=== PATIENT | female | born 1945 | race Caucasian/White ===

== ENCOUNTER 2022-04-03 09:15 | Outpatient (RCR) | payer MEDICARE, SELFPAY | END 2022-07-10 08:37 | disposition home or self-care (01) | PROVIDERS: Visit Provider Physician Assistant | DX: M54.2 Cervicalgia (principal); Z51.89 Encounter for other specified aftercare | CPT/HCPCS: 97110; 97140 ==

== ENCOUNTER 2022-09-10 06:55 | Emergency (ER) | payer MEDICARE, SELFPAY ==
[2022-09-10] VITALS (23 sets, daily range): BP systolic 93–119; BP diastolic 66–76; PULSE 61–70; RESP 18; TEMP 36.6; O2SAT 95–99; BMI 31.7
--- NOTE | 2022-09-10 07:04 | ED_ITS ---
HPI - General Adult General Time Seen by Provider: 07:04 <Pito Wynne MD - Last Filed: 09/10/22 07:51> Date Seen: 09/10/22 <Pito Wynne MD - Last Filed: 09/10/22 07:51> Chief complaint: Chest Pain <Pito Wynne MD - Last Filed: 09/10/22 07:51> Stated complaint: Pressure in chest <Pito Wynne MD - Last Filed: 09/10/22 07:51> Time Seen by Provider: 09/10/22 07:03 <Pito Wynne MD - Last Filed: 09/10/22 07:51> Source: patient and RN notes reviewed <Pito Wynne MD - Last Filed: 09/10/22 07:51> Mode of arrival: ambulatory <Pito Wynne MD - Last Filed: 09/10/22 07:51> Limitations: no limitations <Pito Wynne MD - Last Filed: 09/10/22 07:51> History of Present Illness HPI narrative: 77-year-old female who presents today with throat pain and chest pressure. Patient is a difficult historian and when initially asked why she came to the emergency department, gives a long story about her trip to [place] yesterday. When redirected she notes that last night she had a sore throat which continues today, also pressure cross the front of her chest. She had some pain with swallowing. Denies fever, chills, runny nose, cough, nausea, vomiting, diarrhea, heartburn, leg swelling. Has not taken anything for her symptoms. <Pito Wynne MD - Last Filed: 09/10/22 07:51> Related Data Home medications: Home Medications Medication Instructions Recorded Confirmed acetaminophen 500 mg tablet 1,000 mg PO TID 09/10/22 09/10/22 albuterol sulfate 2.5 mg/3 mL 2.5 mg inhalation Q4H PRN 09/10/22 09/10/22 (0.083 %) solution for nebulization albuterol sulfate 90 mcg/actuation 2 puff inhalation TID PRN 09/10/22 09/10/22 aerosol inhaler buspirone 15 mg tablet 15 mg PO BID 09/10/22 09/10/22 cholestyramine (with sugar) 4 gram 1 ea PO BID 09/10/22 09/10/22 powder for susp in a packet (Questran) cyanocobalamin (vitamin B-12) 1,000 mcg IM Q30D 09/10/22 09/10/22 1,000 mcg/mL injection solution diphenoxylate-atropine 2.5 1 tab PO TID PRN 09/10/22 09/10/22 mg-0.025 mg tablet epinephrine 0.3 mg/0.3 mL 0.3 ml IM Q5-15M PRN 09/10/22 09/10/22 injection, auto-injector ferrous gluconate 324 mg (38 mg 324 mg PO DAILY 09/10/22 09/10/22 iron) tablet gabapentin 100 mg capsule 100 mg PO TID 09/10/22 09/10/22 hydrochlorothiazide 25 mg tablet 25 mg PO DAILY 09/10/22 09/10/22 levothyroxine 88 mcg tablet 88 mcg PO DAILY 09/10/22 09/10/22 potassium chloride 10 mEq 10 meq PO .DAILYWM 09/10/22 09/10/22 tablet,extended release pregabalin 150 mg capsule 150 mg PO BID 09/10/22 09/10/22 rosuvastatin 10 mg tablet 10 mg PO HS 09/10/22 09/10/22 trazodone 50 mg tablet 50 - 100 mg PO HS PRN 09/10/22 09/10/22 venlafaxine 100 mg tablet 100 mg PO BID 09/10/22 09/10/22 Previous Rx's Medication Instructions Recorded famotidine 40 mg tablet (Pepcid) 40 mg PO DAILY #10 tabs 09/10/22 nirmatrelvir 300 mg (150 mg See Rx Instructions PO .COMPLEX 09/10/22 x2)-ritonavir 100 mg tablet,dose #30 ea pack(EUA) (Paxlovid) sucralfate 1 gram tablet (Carafate) 1 g PO BID #20 tabs 09/10/22 <Pito Wynne MD - Last Filed: 09/10/22 07:51> Allergies/adverse reactions: Allergies Allergy/AdvReac Type Severity Reaction Status Date / Time azithromycin Allergy Severe Swelling Verified 09/10/22 07:11 of Lip/Tongue/Throat Cephalosporins Allergy Severe Swelling Verified 09/10/22 07:11 of Lip/Tongue/Throat diltiazem Allergy Severe Swelling Verified 09/10/22 07:11 of Lip/Tongue/Throat Penicillins Allergy Severe Swelling Verified 09/10/22 07:11 of Lip/Tongue/Throat prednisone Allergy Severe Swelling Verified 09/10/22 07:11 of Lip/Tongue/Throat Sulfa (Sulfonamide Allergy Severe Swelling Verified 09/10/22 07:11 Antibiotics) of Lip/Tongue/Throat nitrofurantoin Allergy Intermediate Rash Verified 09/10/22 07:11 [From Macrobid] STERLING Inhibitors Allergy Unknown Verified 09/10/22 07:11 <Pito Wynne MD - Last Filed: 09/10/22 07:51> [facility] Social History: Social History Smoking Status: Never smoker How often do you have a drink containing alcohol: never How often do you have six or more drinks on one occasion: Never AUDIT-C Alcohol total score: 0 Non-prescribed substance use: denies use <Pito Wynne MD - Last Filed: 09/10/22 07:51> Exam Narrative: Exam Narrative: General: Well-developed and well-nourished, no acute distress Head: Atraumatic and normocephalic Eyes: Pupils are equal reactive, extraocular motions intact, conjunctiva clear ENT: External nose and ears are normal, posterior pharynx with mild erythema, no exudate or swelling. No voice changes. Neck: No midline cervical tenderness, full spontaneous range of motion the neck, trachea midline, no adenopathy Heart: Regular rate and rhythm no murmurs or thrills Lungs: Clear to auscultation bilaterally without wheezes or crackles Abdomen: Soft, nontender, nondistended with active bowel sounds Musculoskeletal: No tenderness, deformity, or edema Neurologic: Awake, alert, and oriented x3, no gross focal neurologic deficits, cranial nerves intact as tested Psych: Mood and affect are appropriate Skin: No rashes <Pito Wynne MD - Last Filed: 09/10/22 07:51> Const: Vital Signs, click to edit/add: Vital Signs - 24 hr 09/10/22 07:05 09/10/22 07:09 09/10/22 07:10 Temperature 97.9 F Pulse Rate 68 67 Pulse Rate [Right Pulse Oximeter] 70 Respiratory Rate 18 Blood Pressure 111/74 Blood Pressure [Le ft Upper Arm] 111/74 Pulse Oximetry 99 95 99 Oxygen Delivery Me thod Room Air 09/10/22 07:20 09/10/22 07:30 09/10/22 07:32 Temperature Pulse Rate 64 63 65 Pulse Rate [Right Pulse Oximeter] Respiratory Rate Blood Pressure 119/71 110/74 Blood Pressure [Le ft Upper Arm] Pulse Oximetry 98 98 99 Oxygen Delivery Me thod 09/10/22 07:50 09/10/22 07:51 09/10/22 08:00 Temperature Pulse Rate 63 62 63 Pulse Rate [Right Pulse Oximeter] Respiratory Rate Blood Pressure Blood Pressure [Le ft Upper Arm] Pulse Oximetry 98 98 98 Oxygen Delivery Me thod 09/10/22 08:17 09/10/22 08:18 09/10/22 08:30 Temperature Pulse Rate 62 64 62 Pulse Rate [Right Pulse Oximeter] Respiratory Rate Blood Pressure 103/73 Blood Pressure [Le ft Upper Arm] Pulse Oximetry 97 97 98 Oxygen Delivery Me thod 09/10/22 08:32 09/10/22 08:47 09/10/22 09:00 Temperature Pulse Rate 64 63 62 Pulse Rate [Right Pulse Oximeter] Respiratory Rate Blood Pressure 105/76 94/66 Blood Pressure [Le ft Upper Arm] Pulse Oximetry 96 97 98 Oxygen Delivery Me thod 09/10/22 09:01 09/10/22 09:17 09/10/22 09:30 Temperature Pulse Rate 61 61 62 Pulse Rate [Right Pulse Oximeter] Respiratory Rate Blood Pressure 111/75 100/74 Blood Pressure [Le ft Upper Arm] Pulse Oximetry 98 98 95 Oxygen Delivery Me thod 09/10/22 09:31 09/10/22 09:32 09/10/22 09:46 Temperature Pulse Rate 62 61 65 Pulse Rate [Right Pulse Oximeter] Respiratory Rate Blood Pressure 93/72 109/69 Blood Pressure [Le ft Upper Arm] Pulse Oximetry 98 99 97 Oxygen Delivery Me thod 09/10/22 10:00 09/10/22 10:01 Temperature Pulse Rate 65 63 Pulse Rate [Right Pulse Oximeter] Respiratory Rate Blood Pressure 100/67 Blood Pressure [Le ft Upper Arm] Pulse Oximetry 97 96 Oxygen Delivery Me thod <Pito Wynne MD - Last Filed: 09/10/22 07:51> Vital Signs, click to edit/add: Vital Signs - 24 hr 09/10/22 07:05 09/10/22 07:09 09/10/22 07:10 Temperature 97.9 F Pulse Rate 68 67 Pulse Rate [Right Pulse Oximeter] 70 Respiratory Rate 18 Blood Pressure 111/74 Blood Pressure [Le ft Upper Arm] 111/74 Pulse Oximetry 99 95 99 Oxygen Delivery Me thod Room Air 09/10/22 07:20 09/10/22 07:30 09/10/22 07:32 Temperature Pulse Rate 64 63 65 Pulse Rate [Right Pulse Oximeter] Respiratory Rate Blood Pressure 119/71 110/74 Blood Pressure [Le ft Upper Arm] Pulse Oximetry 98 98 99 Oxygen Delivery Me thod 09/10/22 07:50 09/10/22 07:51 09/10/22 08:00 Temperature Pulse Rate 63 62 63 Pulse Rate [Right Pulse Oximeter] Respiratory Rate Blood Pressure Blood Pressure [Le ft Upper Arm] Pulse Oximetry 98 98 98 Oxygen Delivery Me thod 09/10/22 08:17 09/10/22 08:18 09/10/22 08:30 Temperature Pulse Rate 62 64 62 Pulse Rate [Right Pulse Oximeter] Respiratory Rate Blood Pressure 103/73 Blood Pressure [Le ft Upper Arm] Pulse Oximetry 97 97 98 Oxygen Delivery Me thod 09/10/22 08:32 09/10/22 08:47 09/10/22 09:00 Temperature Pulse Rate 64 63 62 Pulse Rate [Right Pulse Oximeter] Respiratory Rate Blood Pressure 105/76 94/66 Blood Pressure [Le ft Upper Arm] Pulse Oximetry 96 97 98 Oxygen Delivery Me thod 09/10/22 09:01 09/10/22 09:17 09/10/22 09:30 Temperature Pulse Rate 61 61 62 Pulse Rate [Right Pulse Oximeter] Respiratory Rate Blood Pressure 111/75 100/74 Blood Pressure [Le ft Upper Arm] Pulse Oximetry 98 98 95 Oxygen Delivery Me thod 09/10/22 09:31 09/10/22 09:32 09/10/22 09:46 Temperature Pulse Rate 62 61 65 Pulse Rate [Right Pulse Oximeter] Respiratory Rate Blood Pressure 93/72 109/69 Blood Pressure [Le ft Upper Arm] Pulse Oximetry 98 99 97 Oxygen Delivery Me thod 09/10/22 10:00 09/10/22 10:01 Temperature Pulse Rate 65 63 Pulse Rate [Right Pulse Oximeter] Respiratory Rate Blood Pressure 100/67 Blood Pressure [Le ft Upper Arm] Pulse Oximetry 97 96 Oxygen Delivery Me thod <Jesse Suresh MD - Last Filed: 09/10/22 17:05> Course Course Hospital Course: Patient seen examined, prior records reviewed. Patient presents today with sore throat chest pain started yesterday. EKG is reassuring. On exam there is mild posterior oropharyngeal erythema, no exudate, no tonsillar swelling, no posterior orpharyngeal swelling. No hot potato voice or stridor to suggest epiglottitis or retropharyngeal abscess. Lungs are clear. Patient is afebrile. No cervical adenopathy. Offered patient GI cocktail but she says she ?can't drink although when I 1st entered the room, she has to drink some water and easily drinking swallowed from her bottle with no choking or dysphagia. It sounds like she had a GI cocktail in the past which made her vomit. Labs are ordered. If these are negative, symptoms of chest pressure and sore throat likely related to reflux and patient be started on medication for this. <Pito Wynne MD - Last Filed: 09/10/22 07:51> Reevaluation(s) Reevaluation #1: Troponin is negative, strep test, COVID, and basic panel reassuring. If these are negative, patient can be discharged. Sign out to Dr. Suresh the follow-up on these results. <Pito Wynne MD - Last Filed: 09/10/22 07:51> Time: 07:49 <Pito Wynne MD - Last Filed: 09/10/22 07:51> Reevaluation #2: Labs are negative, her COVID test was positive, and I think that the COVID is causing the above symptoms, I did have pharmacy go over her medications, and we will half to stop both her cholesterol medication, and also the trazodone she takes at nighttime while she is on the Paxlovid, her renal function is good. I went over the risks benefits and side effects of this medication along with recent signs and symptoms when they should follow-up. They were very comfortable with this. Discussed this with both the patient and her granddaughter. <Jesse Suresh MD - Last Filed: 09/10/22 17:05> Vital Signs Vital signs: Initial Vital Signs Temperature 97.9 F 09/10/22 07:05 Temperature Source Temporal Artery Scan 09/10/22 07:05 Pulse Rate 70 09/10/22 07:05 Pulse Rhythm 09/10/22 07:05 Pulse Strength 3+ Normal 09/10/22 07:05 Respiratory Rate 18 09/10/22 07:05 Blood Pressure 111/74 09/10/22 07:05 Blood Pressure Mean 86 09/10/22 07:05 Blood Pressure Position Supine 09/10/22 07:05 Pulse Oximetry 99 09/10/22 07:05 Oxygen Delivery Method 09/10/22 07:05 Vital Signs Temperature 97.9 F 09/10/22 07:05 Pulse Rate 70 09/10/22 07:05 Respiratory Rate 18 09/10/22 07:05 Blood Pressure 111/74 09/10/22 07:05 Pulse Oximetry 99 09/10/22 07:05 Oxygen Delivery Method 09/10/22 07:05 Temperature 97.9 F 09/10/22 07:05 Pulse Rate 63 09/10/22 10:01 Respiratory Rate 18 09/10/22 07:05 Blood Pressure 100/67 09/10/22 10:01 Pulse Oximetry 96 09/10/22 10:01 Oxygen Delivery Method 09/10/22 07:05 <Pito Wynne MD - Last Filed: 09/10/22 07:51> Initial Vital Signs Temperature 97.9 F 09/10/22 07:05 Temperature Source Temporal Artery Scan 09/10/22 07:05 Pulse Rate 70 09/10/22 07:05 Pulse Rhythm 09/10/22 07:05 Pulse Strength 3+ Normal 09/10/22 07:05 Respiratory Rate 18 09/10/22 07:05 Blood Pressure 111/74 09/10/22 07:05 Blood Pressure Mean 86 09/10/22 07:05 Blood Pressure Position Supine 09/10/22 07:05 Pulse Oximetry 99 09/10/22 07:05 Oxygen Delivery Method 09/10/22 07:05 Vital Signs Temperature 97.9 F 09/10/22 07:05 Pulse Rate 70 09/10/22 07:05 Respiratory Rate 18 09/10/22 07:05 Blood Pressure 111/74 09/10/22 07:05 Pulse Oximetry 99 09/10/22 07:05 Oxygen Delivery Method 09/10/22 07:05 Temperature 97.9 F 09/10/22 07:05 Pulse Rate 63 09/10/22 10:01 Respiratory Rate 18 09/10/22 07:05 Blood Pressure 100/67 09/10/22 10:01 Pulse Oximetry 96 09/10/22 10:01 Oxygen Delivery Method 09/10/22 07:05 <Jesse Suresh MD - Last Filed: 09/10/22 17:05> Medical Decision Making Lab Data Labs: Lab Results 09/10/22 09/10/22 09/10/22 Range/Units 07:23 07:30 07:30 Sodium (135-149) mmol/L Potassium (3.6-5.1) mmol/L Chloride (96-114) mmol/L Carbon Dioxide (20-32) mmol/L BUN (7-30) mg/dL Creatinine (0.5-1.5) mg/dL Estimated Creat Clear Estimated GFR ml/min Glucose (60-115) mg/dL Calcium (8.4-10.6) mg/dL SARS-CoV-2 (PCR) POSITIVE SARS-CoV-2 A (Negative) Influenza Type A (PCR) Negative PCR FLU A (Negative) Influenza Type B (PCR) Negative PCR FLU B (Negative) Group A Strep DNA NOT DETECTED (Not Detectd) POC Troponin I 0.01 (0.01-0.04) ng/ml 09/10/22 09/10/22 Range/Units 08:00 09:15 Sodium 139 (135-149) mmol/L Potassium 4.0 (3.6-5.1) mmol/L Chloride 102 (96-114) mmol/L Carbon Dioxide 32 (20-32) mmol/L BUN 9 (7-30) mg/dL Creatinine 0.6 (0.5-1.5) mg/dL Estimated Creat Clear 54.65 Estimated GFR 94 ml/min Glucose 101 (60-115) mg/dL Calcium 8.8 (8.4-10.6) mg/dL SARS-CoV-2 (PCR) (Negative) Influenza Type A (PCR) (Negative) Influenza Type B (PCR) (Negative) Group A Strep DNA (Not Detectd) POC Troponin I 0.00 L (0.01-0.04) ng/ml <Pito Wynne MD - Last Filed: 09/10/22 07:51> Lab Results 09/10/22 09/10/22 09/10/22 Range/Units 07:23 07:30 07:30 Sodium (135-149) mmol/L Potassium (3.6-5.1) mmol/L Chloride (96-114) mmol/L Carbon Dioxide (20-32) mmol/L BUN (7-30) mg/dL Creatinine (0.5-1.5) mg/dL Estimated Creat Clear Estimated GFR ml/min Glucose (60-115) mg/dL Calcium (8.4-10.6) mg/dL SARS-CoV-2 (PCR) POSITIVE SARS-CoV-2 A (Negative) Influenza Type A (PCR) Negative PCR FLU A (Negative) Influenza Type B (PCR) Negative PCR FLU B (Negative) Group A Strep DNA NOT DETECTED (Not Detectd) POC Troponin I 0.01 (0.01-0.04) ng/ml 09/10/22 09/10/22 Range/Units 08:00 09:15 Sodium 139 (135-149) mmol/L Potassium 4.0 (3.6-5.1) mmol/L Chloride 102 (96-114) mmol/L Carbon Dioxide 32 (20-32) mmol/L BUN 9 (7-30) mg/dL Creatinine 0.6 (0.5-1.5) mg/dL Estimated Creat Clear 54.65 Estimated GFR 94 ml/min Glucose 101 (60-115) mg/dL Calcium 8.8 (8.4-10.6) mg/dL SARS-CoV-2 (PCR) (Negative) Influenza Type A (PCR) (Negative) Influenza Type B (PCR) (Negative) Group A Strep DNA (Not Detectd) POC Troponin I 0.00 L (0.01-0.04) ng/ml <Jesse Suresh MD - Last Filed: 09/10/22 17:05> ECG Data Attestation: I personally reviewed and interpreted this ECG as follows: <Pito Wynne MD - Last Filed: 09/10/22 07:51> Prior ECG tracings: not available for review <Pito Wynne MD - Last Filed: 09/10/22 07:51> Interpretation: Performed at 7:01 a.m. independently interpreted by me demonstrates sinus rhythm rate 66, no acute ST elevations or depressions, normal intervals, normal axis, SC 154. No prior for comparison. <Pito Wynne MD - Last Filed: 09/10/22 07:51> Discharge Plan Discharge Clinical Impression: Chest pain, Pharyngitis, COVID-19 <Pito Wynne MD - Last Filed: 09/10/22 07:51> Patient Disposition: Home, Self-Care <Pito Wynne MD - Last Filed: 09/10/22 07:51> Condition: Stable <Pito Wynne MD - Last Filed: 09/10/22 07:51> Instructions: Pharyngitis (ED) <Pito Wynne MD - Last Filed: 09/10/22 07:51> Additional Instructions: Home rest Paxlovid as directed, please hold your trazodone, and restart t his 3 days after you were done COVID medication in 5 days. Hold your also her cholesterol medication Rosuvastin and restarted 3 days after your done also. Return to the emergency room if increasing shortness of breath, fevers chills, weakness, but most people get through this now with no problems at all and I am encouraged fact that your vaccinated. <Pito Wynne MD - Last Filed: 09/10/22 07:51> Activity Level: No Restrictions <Pito Wynne MD - Last Filed: 09/10/22 07:51> No Restrictions <Jesse Suresh MD - Last Filed: 09/10/22 17:05> Discharge Diet: Regular <Pito Wynne MD - Last Filed: 09/10/22 07:51> Regular <Jesse Suresh MD - Last Filed: 09/10/22 17:05> Prescriptions: New sucralfate [Carafate] 1 gram tablet 1 g PO BID Qty: 20 0RF famotidine [Pepcid] 40 mg tablet 40 mg PO DAILY Qty: 10 2RF Paxlovid (EUA) 300 mg (150 mg x 2)-100 mg tablets,dose pack See Rx Instructions .ROUTE .COMPLEX Qty: 30 0RF Rx Instructions: take TWO 150 mg tablets of nirmatrelvir with ONE 100 mg tablet of ritonavir twice daily for 5 days No Action albuterol sulfate 2.5 mg /3 mL (0.083 %) solution for nebulization 2.5 mg inhalation Q4H PRN trazodone 50 mg tablet 50 - 100 mg PO HS PRN diphenoxylate-atropine 2.5-0.025 mg tablet 1 tab PO TID PRN potassium chloride 10 mEq tablet extended release 10 meq PO .DAILYWM venlafaxine 100 mg tablet 100 mg PO BID levothyroxine 88 mcg tablet 88 mcg PO DAILY hydrochlorothiazide 25 mg tablet 25 mg PO DAILY albuterol sulfate 90 mcg/actuation HFA aerosol inhaler 2 puff INHALATION TID PRN rosuvastatin 10 mg tablet 10 mg PO HS pregabalin 150 mg capsule 150 mg PO BID acetaminophen 500 mg tablet 1,000 mg PO TID buspirone 15 mg tablet 15 mg PO BID cholestyramine (with sugar) [Questran] 4 gram powder in packet 1 ea PO BID cyanocobalamin (vitamin B-12) 1,000 mcg/mL solution 1,000 mcg IM Q30D epinephrine 0.3 mg/0.3 mL auto-injector 0.3 ml IM Q5-15M PRN Rx Instructions: do not exceed 3 doses per episode ferrous gluconate 324 mg (38 mg iron) tablet 324 mg PO DAILY gabapentin 100 mg capsule 100 mg PO TID <Pito Wynne MD - Last Filed: 09/10/22 07:51> Stand Alone Forms: My[facility] Info Instructions <Pito Wynne MD - Last Filed: 09/10/22 07:51>
[2022-09-10 07:35] LABS: Troponin, Point-of-Care* 0.01 ng/ml (0.01-0.04)
[2022-09-10 08:03] LABS: Strep A DNA Probe* NOT DETECTED (Not Detectd)
[2022-09-10 08:12] LABS: PCR FLU A Negative PCR FLU A (Negative); PCR FLU B Negative PCR FLU B (Negative)
[2022-09-10 08:14] LABS: SARS PCR* POSITIVE SARS-CoV-2 (Negative)
[2022-09-10 08:19] LABS: Chloride* 102 mmol/L (96-114)
[2022-09-10 08:20] LABS: Sodium* 139 mmol/L (135-149)
[2022-09-10 08:22] LABS: Creatinine* 0.6 mg/dL (0.5-1.5); Est. Creatinine Clearance* 54.65; Estimated Glomerular Filt Rate 94 ml/min
[2022-09-10 08:23] LABS: Blood Urea Nitrogen* 9 mg/dL (7-30); Calcium* 8.8 mg/dL (8.4-10.6); Carbon Dioxide* 32 mmol/L (20-32); Glucose* 101 mg/dL (60-115)
== END 2022-09-10 11:53 | disposition home or self-care (01) ==
PROVIDERS: Family Medicine; Emergency Provider Family Medicine; PCP Physician Assistant Medical
DX: R07.89 Other chest pain (principal); U07.1 COVID-19
CPT/HCPCS: 36415; 80048; 84484; 87631; 87651; 93005; 99284; 99285

== ENCOUNTER 2022-12-19 09:15 | Outpatient (RCR) | payer MEDICARE, SELFPAY | END 2023-04-18 23:59 | disposition home or self-care (01) | PROVIDERS: PCP Physician Assistant Medical; Visit Provider Physician Assistant Medical | DX: M51.36 Other intervertebral disc degeneration, lumbar region (principal); M25.511 Pain in right shoulder; M25.512 Pain in left shoulder; Z51.89 Encounter for other specified aftercare | CPT/HCPCS: 97110; 97140; 97162 ==

== ENCOUNTER 2023-05-28 19:18 | Emergency (ER) | payer MEDICARE, SELFPAY ==
[2023-05-28 19:34] VITALS: BP 134/75; PULSE 60; RESP 18; TEMP 36.3; O2SAT 98
--- NOTE | 2023-05-28 20:01 | CRLHL7_ITS ---
For Patients: As a result of the Century Cures Act, medical imaging exams and procedure reports are released immediately into your electronic medical record. You may view this report before your referring provider. If you have questions, please contact your health care provider. INDICATION: Weakness. TECHNIQUE: Head CT without contrast. COMPARISON: February 2021. FINDINGS: Periventricular areas of low attenuation, likely due to chronic small vessel ischemic changes. Generalized volume loss. Atherosclerosis. No intracranial hemorrhage. No discrete mass or mass effect. There is no midline shift. The basilar cisterns are patent. No hydrocephalus. The lai-white matter interface is otherwise preserved. No acute osseous abnormality. No extracalvarial soft tissue abnormality. The mastoid air cells are clear. The paranasal sinuses are well-aerated. The visualized portions of the orbits and globes are unremarkable. IMPRESSION: No acute intracranial process per unenhanced head CT. Please note that all CT scans at this facility use dose modulation, iterative reconstruction, and/or weight-based dosing when appropriate to reduce radiation dose to as low as reasonably achievable. Dictated by Geraldo Us MD @ 05/28/2023 8:38:22 PM (Electronically Signed)
--- NOTE | 2023-05-28 20:21 | ED_ITS ---
HPI - General Adult General Date Seen: 05/28/23 Chief complaint: Unspecified Complaint, Adult Stated complaint: Stroke concern Time Seen by Provider: 05/28/23 19:49 Source: patient Mode of arrival: ambulatory Limitations: no limitations History of Present Illness HPI narrative: Patient is a 89-year-old female history of TIA he has hypertension, hypothyroidism, hyperlipidemia presenting to the emergency department for unsteady gait. She states symptoms have been going on for the past 4 days. States they seem to come and go. She describes symptoms as if she has no control of her legs and they are moving on their own. She is using a walker while states she will physical she is going to fall but has not fallen yet. She states symptoms are not always there and change throughout the day. She is currently asymptomatic. She last at the symptoms today at 15:00. She is not currently see a neurologist. Denies fevers, chills, no headache, vision changes, abdominal pain, chest pain, shortness of breath. States she will get right-sided arm numbness and weakness but this only occurs if she leans on her right elbow. No other concerns at this time. Dollar and on the room states she is acting her mental baseline. Related Data Home Medications Medication Instructions Recorded Confirmed acetaminophen 500 mg tablet 1,000 mg PO TID 09/10/22 05/28/23 albuterol sulfate 2.5 mg/3 mL 2.5 mg inhalation Q4H PRN 09/10/22 05/28/23 (0.083 %) solution for nebulization albuterol sulfate 90 mcg/actuation 2 puff inhalation TID PRN 09/10/22 05/28/23 aerosol inhaler buspirone 15 mg tablet 15 mg PO BID 09/10/22 05/28/23 cholestyramine (with sugar) 4 gram 1 ea PO BID 09/10/22 05/28/23 powder for susp in a packet (Questran) cyanocobalamin (vitamin B-12) 1,000 mcg IM Q30D 09/10/22 05/28/23 1,000 mcg/mL injection solution diphenoxylate-atropine 2.5 1 tab PO TID PRN 09/10/22 05/28/23 mg-0.025 mg tablet epinephrine 0.3 mg/0.3 mL 0.3 ml IM Q5-15M PRN 09/10/22 05/28/23 injection, auto-injector ferrous gluconate 324 mg (38 mg 324 mg PO DAILY 09/10/22 05/28/23 iron) tablet gabapentin 100 mg capsule 100 mg PO TID 09/10/22 05/28/23 hydrochlorothiazide 25 mg tablet 25 mg PO DAILY 09/10/22 05/28/23 levothyroxine 88 mcg tablet 88 mcg PO DAILY 09/10/22 05/28/23 potassium chloride 10 mEq 10 meq PO .DAILYWM 09/10/22 05/28/23 tablet,extended release pregabalin 150 mg capsule 150 mg PO BID 09/10/22 05/28/23 rosuvastatin 10 mg tablet 10 mg PO HS 09/10/22 05/28/23 trazodone 50 mg tablet 50 - 100 mg PO HS PRN 09/10/22 05/28/23 venlafaxine 100 mg tablet 100 mg PO BID 09/10/22 05/28/23 Previous Rx's Medication Instructions Recorded famotidine 40 mg tablet (Pepcid) 40 mg PO DAILY #10 tabs 09/10/22 sucralfate 1 gram tablet (Carafate) 1 g PO BID #20 tabs 09/10/22 Allergies Allergy/AdvReac Type Severity Reaction Status Date / Time azithromycin Allergy Severe Swelling Verified 05/28/23 17:56 of Lip/Tongue/Throat Cephalosporins Allergy Severe Swelling Verified 05/28/23 17:56 of Lip/Tongue/Throat diltiazem Allergy Severe Swelling Verified 05/28/23 17:56 of Lip/Tongue/Throat Penicillins Allergy Severe Swelling Verified 05/28/23 17:56 of Lip/Tongue/Throat prednisone Allergy Severe Swelling Verified 05/28/23 17:56 of Lip/Tongue/Throat Sulfa (Sulfonamide Allergy Severe Swelling Verified 05/28/23 17:56 Antibiotics) of Lip/Tongue/Throat nitrofurantoin Allergy Intermediate Rash Verified 05/28/23 17:56 [From Macrobid] STERLING Inhibitors Allergy Unknown Verified 05/28/23 17:56 Review of Systems Status of ROS: Reports: 10 or more systems reviewed and unremarkable except as noted in History and below PFSH PFSH Social History Smoking Status: Never smoker Do you use any of these nicotine containing products: None Second hand tobacco smoke exposure: No How often do you have a drink containing alcohol: never How often do you have six or more drinks on one occasion: Never AUDIT-C Alcohol total score: 0 Non-prescribed substance use: denies use service: No Exam Narrative: Exam Narrative: Const: Well-nourished, Well-developed, in mild distress Eyes: PERRL, no conjunctival injection, and symmetrical lids HENT: Atraumatic external nose and ears. Moist mucous membranes. Neck: Symmetric, trachea midline, No thyromegaly. CVS: RRR, No murmurs or gallops. Peripheral pulses 2+ and equal in all extremities RESP: Unlabored respiratory effort. Clear to auscultation bilaterally. GI: Nontender/Nondistended, No rebound or guarding. MSK:Extremities w/o deformity, Normal Active ROM Skin: Warm, Dry. No rashes or lesions. Neuro: Normal Muscle tone, No focal neurological deficits. Psych: Awake, Alert, & Oriented x3. Appropriate mood and affect. Const: Vital Signs, click to edit/add: Vital Signs - 24 hr 05/28/23 19:34 Temperature 97.4 F L Pulse Rate [Left P ulse Oximeter] 60 Respiratory Rate 18 Blood Pressure [Ri ght Upper Arm] 134/75 Pulse Oximetry 98 Oxygen Delivery Me thod Room Air Course Vital Signs Vital signs: Initial Vital Signs Temperature 97.4 F L 05/28/23 19:34 Temperature Source Temporal Artery Scan 05/28/23 19:34 Pulse Rate 60 05/28/23 19:34 Pulse Rhythm Regular 05/28/23 19:34 Respiratory Rate 18 05/28/23 19:34 Blood Pressure 134/75 05/28/23 19:34 Blood Pressure Mean 94 05/28/23 19:34 Blood Pressure Position Sitting 05/28/23 19:34 Pulse Oximetry 98 05/28/23 19:34 Oxygen Delivery Method Room Air 05/28/23 19:34 Vital Signs Temperature 97.4 F L 05/28/23 19:34 Pulse Rate 60 05/28/23 19:34 Respiratory Rate 18 05/28/23 19:34 Blood Pressure 134/75 05/28/23 19:34 Pulse Oximetry 98 05/28/23 19:34 Oxygen Delivery Method Room Air 05/28/23 19:34 Temperature 97.4 F L 05/28/23 19:34 Pulse Rate 60 05/28/23 19:34 Respiratory Rate 18 05/28/23 19:34 Blood Pressure 134/75 05/28/23 19:34 Pulse Oximetry 98 05/28/23 19:34 Oxygen Delivery Method Room Air 05/28/23 19:34 Medical Decision Making MDM Narrative Medical decision making narrative: Patient is a 77-year-old female presenting to emergency department and she is concerned she is having a stroke. Symptoms have been going on for 4 days now and are intermittent. She describes the symptoms as he is unable to control her legs since moving on their own. Initially this does not sound like a stroke. We will CT her head. She is also concerned about right arm numbness and weakness. Symptoms only when she is laying on her right side and this appears more likely to be a nerve or vascular to her issue and not related to a stroke as symptoms resolve when she is no longer pulling pressure on that side. She is currently asymptomatic. Ordered CBC, magnesium, troponin, urinalysis, CMP. Patient's lab work returned showing no concerning abnormalities. She did state who urine smelled funny and she just finished a antibiotic be urine shows no signs of infection right now. Potassium is slightly low 3.2 and this was replen ished but this is unlikely to be the cause of her symptoms. EKG showed no concerning abnormalities. Head CT showed no concerning findings. Does not appear to be a stroke at this time. And 1 sure exactly what is causing her symptoms but does not appear to be emergent. She is currently asymptomatic. She is doing well can be safely discharged. Lab Data Labs: Lab Results 05/28/23 05/28/23 Range/Units 20:24 21:50 WBC 6.58 (4.50-11.00) K/uL RBC 4.57 (4.00-5.20) m/uL Hgb 13.7 (12.0-16.0) gm/dL Hct 42.3 (33.0-51.0) % MCV 93 (80-100) fL MCH 30 (26-34) pg MCHC 32 (32-36) gm/dL RDW Coeff of Bonnie 13.0 (11.5-15.5) % Plt Count 202 (140-440) K/uL Neut % (Auto) 41.4 L (42.0-72.0) % Lymph % (Auto) 40.9 (20-44) % Cannon % (Auto) 5.8 (0.0-11.0) % Eos % (Auto) 10.2 H (0.0-7.0) % Baso % (Auto) 0.9 (0.0-3.0) % Neut # (Auto) 2.70 (1.7-7.0) K/uL Lymph # (Auto) 2.69 (0.90-2.90) K/uL Cannon # (Auto) 0.40 (0.00-0.90) K/UL Eos # (Auto) 0.70 H (0.00-0.50) K/uL Baso # (Auto) 0.06 (0.00-0.30) K/uL Abs Immat Gran (auto) 0.05 (0.00-0.30) K/uL Imm/Tot Granulo (auto) 0.8 % Sodium 140 (135-149) mmol/L Potassium 3.2 L (3.6-5.1) mmol/L Chloride 102 (96-114) mmol/L Carbon Dioxide 29 (20-32) mmol/L Anion Gap 9 (7-15) mEq/L BUN 11 (7-30) mg/dL Creatinine 0.7 (0.5-1.5) mg/dL Estimated GFR 90 ml/min Glucose 92 (60-115) mg/dL Calcium 8.7 (8.4-10.6) mg/dL Magnesium 1.8 (1.5-2.6) mg/dL Total Bilirubin 0.6 (0.1-1.5) mg/dL AST 42 H (12-35) U/L ALT 35 (4-35) U/L Alkaline Phosphatase 46 (40-150) U/L Troponin I < 0.01 L (0.01-0.04) ng/mL Total Protein 6.9 (6.0-8.3) g/dL Albumin 4.3 (3.3-5.0) g/dL Urine Color Yellow (Yellow) Urine Appearance Clear (Clear) Urine pH 5.5 (5.0-8.5) Ur Specific [place] >= 1.030 (1.000-1.030) Urine Protein Negative (Negative) Urine Glucose (UA) Negative (Negative) Urine Ketones Negative (Negative) Urine Blood Negative (Negative) Urine Nitrite Negative (Negative) Urine Bilirubin Negative (Negative) Urine Urobilinogen 0.2 (0.2-1.0) Ur Leukocyte Esterase Trace A (Negative) Urine RBC 0-2 (0-2) Urine WBC 2-5 (0-5) Ur Squamous Epith Cells Few (None-Few) Urine Bacteria None (None) Imaging Data CT scan - head: Radiologist's impression: INDICATION: Weakness. TECHNIQUE: Head CT without contrast. COMPARISON: February 2021. FINDINGS: Periventricular areas of low attenuation, likely due to chronic small vessel ischemic changes. Generalized volume loss. Atherosclerosis. No intracranial hemorrhage. No discrete mass or mass effect. There is no midline shift. The basilar cisterns are patent. No hydrocephalus. The lai-white matter interface is otherwise preserved. No acute osseous abnormality. No extracalvarial soft tissue abnormality. The mastoid air cells are clear. The paranasal sinuses are well-aerated. The visualized portions of the orbits and globes are unremarkable. IMPRESSION: No acute intracranial process per unenhanced head CT. Please note that all CT scans at this facility use dose modulation, iterative reconstruction, and/or weight-based dosing when appropriate to reduce radiation dose to as low as reasonably achievable. Dictated by Geraldo Us MD @ 05/28/2023 8:38:22 PM ECG Data Attestation: I personally reviewed and interpreted this ECG as follows: Interpretation: Sinus bradycardia, rate of 57 beats per minute, normal intervals, normal axis, no ST or T-wave abnormalities Discharge Plan Discharge Clinical Impression: Weakness Patient Disposition: Home, Self-Care Condition: Stable Instructions: Weakness (ED) Additional Instructions: Follow-up with your primary care provider for these symptoms and possibly seeing a neurologist. If symptoms worsen such as confusion, single sided weakness, vision changes, or other concerns, please return to the emergency department. Prescriptions: No Action albuterol sulfate 2.5 mg /3 mL (0.083 %) solution for nebulization 2.5 mg inhalation Q4H PRN trazodone 50 mg tablet 50 - 100 mg PO HS PRN diphenoxylate-atropine 2.5-0.025 mg tablet 1 tab PO TID PRN potassium chloride 10 mEq tablet extended release 10 meq PO .DAILYWM venlafaxine 100 mg tablet 100 mg PO BID levothyroxine 88 mcg tablet 88 mcg PO DAILY hydrochlorothiazide 25 mg tablet 25 mg PO DAILY albuterol sulfate 90 mcg/actuation HFA aerosol inhaler 2 puff INHALATION TID PRN rosuvastatin 10 mg tablet 10 mg PO HS pregabalin 150 mg capsule 150 mg PO BID sucralfate [Carafate] 1 gram tablet 1 g PO BID Qty: 20 0RF famotidine [Pepcid] 40 mg tablet 40 mg PO DAILY Qty: 10 2RF acetaminophen 500 mg tablet 1,000 mg PO TID buspirone 15 mg tablet 15 mg PO BID cholestyramine (with sugar) [Questran] 4 gram powder in packet 1 ea PO BID cyanocobalamin (vitamin B-12) 1,000 mcg/mL solution 1,000 mcg IM Q30D epinephrine 0.3 mg/0.3 mL auto-injector 0.3 ml IM Q5-15M PRN Rx Instructions: do not exceed 3 doses per episode ferrous gluconate 324 mg (38 mg iron) tablet 324 mg PO DAILY gabapentin 100 mg capsule 100 mg PO TID Follow Up/Referrals: Padmini Kim PATeresaC [Primary Care Provider] - Stand Alone [facility]
[2023-05-28 20:35] LABS: Basophils Absolute Auto 0.06 K/uL (0.00-0.30); Basophils Percent Auto 0.9 % (0.0-3.0); Eosinophils Percent Auto 10.2 % (0.0-7.0); Hematocrit 42.3 % (33.0-51.0); Hemoglobin* 13.7 gm/dL (12.0-16.0); Immature Granulocytes Abs Auto 0.05 K/uL (0.00-0.30); Immature Granulocytes Pct Auto 0.8 %; Lymphocytes Absolute Auto 2.69 K/uL (0.90-2.90); Lymphocytes Percent Auto 40.9 % (20-44); Mean Corpuscular HGB Conc 32 gm/dL (32-36); Mean Corpuscular Hemoglobin 30 pg (26-34); Mean Corpuscular Volume 93 fL (80-100); Monocytes Percent Auto 5.8 % (0.0-11.0); Neutrophils Percent Auto 41.4 % (42.0-72.0); Platelet Count* 202 K/uL (140-440); Red Blood Count 4.57 m/uL (4.00-5.20); White Blood Count* 6.58 K/uL (4.50-11.00)
[2023-05-28 20:37] LABS: Slide Review Reflex No
[2023-05-28 20:47] LABS: Albumin* 4.3 g/dL (3.3-5.0); Chloride* 102 mmol/L (96-114); Potassium* 3.2 mmol/L (3.6-5.1); Sodium* 140 mmol/L (135-149)
[2023-05-28 20:50] LABS: Alanine Aminotransferase* 35 U/L (4-35); Alkaline Phosphatase* 46 U/L (40-150); Anion Gap 9 mEq/L (7-15); Aspartate Amino Transferase* 42 U/L (12-35); Bilirubin Total* 0.6 mg/dL (0.1-1.5); Blood Urea Nitrogen* 11 mg/dL (7-30); Carbon Dioxide* 29 mmol/L (20-32); Creatinine* 0.7 mg/dL (0.5-1.5); Estimated Glomerular Filt Rate 90 ml/min; Glucose* 92 mg/dL (60-115); Total Protein* 6.9 g/dL (6.0-8.3)
[2023-05-28 20:51] LABS: Calcium* 8.7 mg/dL (8.4-10.6); Magnesium* 1.8 mg/dL (1.5-2.6)
[2023-05-28 21:14] LABS: Troponin I* < 0.01 ng/mL (0.01-0.04)
[2023-05-28 22:07] LABS: Appearance Urine Clear (Clear); Bilirubin Urine Negative (Negative); Blood Urine Negative (Negative); Color Urine Yellow (Yellow); Glucose Urine Negative (Negative); Ketones Urine Negative (Negative); Leukocyte Esterase Urine Trace (Negative); Nitrite Urine Negative (Negative); Protein Urine Negative (Negative); Specific Gravity Urine >= 1.030 (1.000-1.030); Urobilinogen Urine 0.2 (0.2-1.0); pH Urine 5.5 (5.0-8.5)
[2023-05-28 22:16] LABS: RBC Urine 0-2 (0-2); Squamous Epithelial Cell Urine Few (None-Few)
== END 2023-05-28 22:34 | disposition home or self-care (01) ==
PROVIDERS: Emergency Provider Student in an Organized Health Care Education/Training Program; PCP Physician Assistant Medical
DX: R53.1 Weakness (principal)
CPT/HCPCS: 36415; 70450; 80053; 81001; 83735; 84484; 85025; 93005; 99283; 99284; 99285

== ENCOUNTER 2023-06-17 10:35 | Outpatient (RCR) | payer MEDICARE, SELFPAY | END 2023-10-15 23:59 | disposition home or self-care (01) | PROVIDERS: PCP Physician Assistant Medical; Visit Provider Physician Assistant Medical | DX: R42 Dizziness and giddiness (principal); Z51.89 Encounter for other specified aftercare | CPT/HCPCS: 97162; 97530 ==

== ENCOUNTER 2023-10-20 18:00 | Emergency (ER) | payer MEDICARE, SELFPAY ==
[2023-10-20 18:11] VITALS: BP 119/83; PULSE 68; RESP 18; TEMP 36.2; O2SAT 96; BMI 32.3
--- NOTE | 2023-10-20 19:12 | ED_ITS ---
HPI - General Adult General Time Seen by Provider: 19:12 Date Seen: 10/20/23 Chief complaint: Sore Throat Stated complaint: Swollen jaw and tonsil area-ref by UC Time Seen by Provider: 10/20/23 18:49 Source: patient and RN notes reviewed Mode of arrival: ambulatory Limitations: no limitations History of Present Illness HPI narrative: This 78-year-old female is coming in with throat irritation, worsening cough. Symptoms really started today. She states she feels like she has tonsils, does have a sore throat. She does have underlying asthma but states it has been stable for the last 20 years. She has multiple antibiotic allergies as well as prednisone. She states she quit taking her temperatures as her son told her that a fever of 99 was not a fever. She notes her baseline temperature to be about 96 in thus when she would get to the 99 range would consider this a fever. Since her son told her differently, she quit taking her temperature. She has had an underlying cough is worse today. Her symptoms really came up today. She is knitting a baby blanket when I come in. Related Data Home Medications Medication Instructions Recorded Confirmed acetaminophen 500 mg tablet 1,000 mg PO TID 09/10/22 07/16/23 albuterol sulfate 2.5 mg/3 mL 2.5 mg inhalation Q4H PRN 09/10/22 07/16/23 (0.083 %) solution for nebulization albuterol sulfate 90 mcg/actuation 2 puff inhalation TID PRN 09/10/22 07/16/23 aerosol inhaler buspirone 15 mg tablet 15 mg PO BID 09/10/22 07/16/23 cholestyramine (with sugar) 4 gram 1 ea PO BID 09/10/22 07/16/23 powder for susp in a packet (Questran) cyanocobalamin (vitamin B-12) 1,000 mcg IM Q30D 09/10/22 07/16/23 1,000 mcg/mL injection solution diphenoxylate-atropine 2.5 1 tab PO TID PRN 09/10/22 07/16/23 mg-0.025 mg tablet epinephrine 0.3 mg/0.3 mL 0.3 ml IM Q5-15M PRN 09/10/22 07/16/23 injection, auto-injector ferrous gluconate 324 mg (38 mg 324 mg PO DAILY 09/10/22 07/16/23 iron) tablet gabapentin 100 mg capsule 100 mg PO TID 09/10/22 07/16/23 hydrochlorothiazide 25 mg tablet 25 mg PO DAILY 09/10/22 07/16/23 levothyroxine 88 mcg tablet 88 mcg PO DAILY 09/10/22 07/16/23 potassium chloride 10 mEq 10 meq PO .DAILYWM 09/10/22 07/16/23 tablet,extended release pregabalin 150 mg capsule 150 mg PO BID 09/10/22 07/16/23 rosuvastatin 10 mg tablet 10 mg PO HS 09/10/22 07/16/23 trazodone 50 mg tablet 50 - 100 mg PO HS PRN 09/10/22 07/16/23 venlafaxine 100 mg tablet 100 mg PO BID 09/10/22 07/16/23 Previous Rx's Medication Instructions Recorded famotidine 40 mg tablet (Pepcid) 40 mg PO DAILY #10 tabs 09/10/22 sucralfate 1 gram tablet (Carafate) 1 g PO BID #20 tabs 09/10/22 Allergies Allergy/AdvReac Type Severity Reaction Status Date / Time azithromycin Allergy Severe Swelling Verified 07/16/23 09:56 of Lip/Tongue/Throat Cephalosporins Allergy Severe Swelling Verified 07/16/23 09:56 of Lip/Tongue/Throat Corticosteroids Allergy Severe Swelling Verified 07/30/23 08:32 (Glucocorticoids) of Lip/Tongue/Throat diltiazem Allergy Severe Swelling Verified 07/16/23 09:56 of Lip/Tongue/Throat Penicillins Allergy Severe Swelling Verified 07/16/23 09:56 of Lip/Tongue/Throat prednisone Allergy Severe Swelling Verified 07/16/23 09:56 of Lip/Tongue/Throat Sulfa (Sulfonamide Allergy Severe Swelling Verified 07/16/23 09:56 Antibiotics) of Lip/Tongue/Throat nitrofurantoin Allergy Intermediate Rash Verified 07/16/23 09:56 [From Macrobid] STERLING Inhibitors Allergy Unknown Verified 07/16/23 09:56 rivaroxaban Allergy Unknown Hives Verified 07/30/23 08:32 Review of Systems Status of ROS: Reports: 6 or more systems reviewed and unremarkable except as noted in History and below [facility] Medical History Osteoarthritis of carpometacarpal (CMC) joint of right thumb ?M18.11 - Unilateral primary osteoarthritis of first carpometacarpal joint, right hand (ICD-10) Osteoarthritis of carpometacarpal (CMC) joint of left thumb ?M18.12 - Unilateral primary osteoarthritis of first carpometacarpal joint, left hand (ICD-10) Tremor ?R25.1 - Tremor, unspecified (ICD-10) Throat tightness ?R09.89 - Other specified symptoms and signs involving the circulatory and respiratory systems (ICD-10) Gastroesophageal reflux (03/14/12) ?K21.9 - Gastro-esophageal reflux disease without esophagitis (ICD-10) Chest wall pain ?R07.89 - Other chest pain (ICD-10) Cervical radiculopathy ?M54.12 - Radiculopathy, cervical region (ICD-10) Surgical History History of tonsillectomy ?Z90.89 - Acquired absence of other organs (ICD-10) History of arthroscopy of left shoulder (01/07/14) ?Z98.890 - Other specified postprocedural states (ICD-10) History of arthroscopy of right shoulder (10/02/12) ?Z98.890 - Other specified postprocedural states (ICD-10) H/O gastric bypass ?Z98.84 - Bariatric surgery status (ICD-10) 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) ?Z96.652 - Presence of left artificial knee joint (ICD-10) History of total right knee replacement (06/17/14) ?Z96.651 - Presence of right artificial knee joint (ICD-10) History of hysterectomy ?Z90.710 - Acquired absence of both cervix and uterus (ICD-10) H/O hernia repair ?Z98.890 - Other specified postprocedural states (ICD-10) ?Z87.19 - Personal history of other diseases of the digestive system (ICD-10) H/O breast biopsy ?Z98.890 - Other specified postprocedural states (ICD-10) Social History Smoking Status: Never smoker Do you use any of these nicotine containing products: None Second hand tobacco smoke exposure: No How often do you have a drink containing alcohol: never How often do you have six or more drinks on one occasion: Never AUDIT-C Alcohol total score: 0 Non-prescribed substance use: denies use service: No Exam Const: Vital Signs, click to edit/add: Vital Signs - 24 hr 10/20/23 18:11 Temperature 97.1 F L Pulse Rate [Pulse Oximeter] 68 Respiratory Rate 18 Blood Pressure [Ri ght Upper Arm] 119/83 Pulse Oximetry 96 Oxygen Delivery Me thod Room Air This 78-year-old female is alert, interactive, no apparent distress. Sitting up in the bed. Pupils equal round reactive to light, sclera clear. TMs normal, no evidence of infection. Oropharynx with normal mucosa, uvula is midline, prior tonsillectomy scars. There is no significant exudates erythema, good oral airway. Mucosa is well-hydrated. She has 1 anterior cervical lymph node at the top of the anterior triangle, it is about dime size, not fluctuant, is mobile but tender. No other adenopathy noted. Lungs are clear, good air entry, no wheezing or crackles. She is able speak in complete sentences, no tachypnea. CV regular rate and rhythm, no murmur, normal S1-S2, no S3-S4. Documenting provider has reviewed patient's vital signs: yes Course Course ED Course: Nursing staff collected a triple swab on arrival, this is pending. Given her asthma and her complaints of worsening cough recently, will obtain a chest x- ray. Will also get a CBC to help in differentiating viral versus bacterial. Patient and I have discussed my concern about antibiotic use in her given she has multiple allergies. We really are going to need to see some significant evidence of needing antibiotics. Reevaluation(s) Time of Reevaluation #1: 21:21 Reevaluation #1: Reviewed with patient her chest x-ray is reassuring, white count normal, negative triple viral swab. We discussed symptomatic [id number] treatments for her sore throat, this is very likely viral. I do not see that antibiotics are indicated at this time. We did review signs and symptoms for return. Vital Signs Vital signs: Initial Vital Signs Temperature 97.1 F L 10/20/23 18:11 Temperature Source Temporal Artery Scan 10/20/23 18:11 Pulse Rate 68 10/20/23 18:11 Pulse Rhythm Regular 10/20/23 18:11 Pulse Strength 3+ Normal 10/20/23 18:11 Respiratory Rate 18 10/20/23 18:11 Blood Pressure 119/83 10/20/23 18:11 Blood Pressure Mean 95 10/20/23 18:11 Blood Pressure Position Sitting 10/20/23 18:11 Pulse Oximetry 96 10/20/23 18:11 Oxygen Delivery Method Room Air 10/20/23 18:11 Vital Signs Temperature 97.1 F L 10/20/23 18:11 Pulse Rate 68 10/20/23 18:11 Respiratory Rate 18 10/20/23 18:11 Blood Pressure 119/83 10/20/23 18:11 Pulse Oximetry 96 10/20/23 18:11 Oxygen Delivery Method Room Air 10/20/23 18:11 Temperature 97.1 F L 10/20/23 18:11 Pulse Rate 68 10/20/23 18:11 Respiratory Rate 18 10/20/23 18:11 Blood Pressure 119/83 10/20/23 18:11 Pulse Oximetry 96 10/20/23 18:11 Oxygen Delivery Method Room Air 10/20/23 18:11 Medical Decision Making Lab Data Lab results reviewed: Yes I reviewed the patient's lab results Labs: Lab Results 10/20/23 10/20/23 Range/Units 18:23 19:36 WBC 6.50 (4.50-11.00) K/uL RBC 4.67 (4.00-5.20) m/uL Hgb 14.3 (12.0-16.0) gm/dL Hct 43.2 (33.0-51.0) % MCV 93 (80-100) fL MCH 31 (26-34) pg MCHC 33 (32-36) gm/dL RDW Coeff of Bonnie 13.0 (11.5-15.5) % Plt Count 171 (140-440) K/uL Neut % (Auto) 51.3 (42.0-72.0) % Lymph % (Auto) 32.2 (20-44) % [facility] % (Auto) 7.1 (0.0-11.0) % Eos % (Auto) 8.3 H (0.0-7.0) % Baso % (Auto) 0.9 (0.0-3.0) % Neut # (Auto) 3.34 (1.7-7.0) K/uL Lymph # (Auto) 2.09 (0.90-2.90) K/uL [facility] # (Auto) 0.50 (0.00-0.90) K/UL Eos # (Auto) 0.50 (0.00-0.50) K/uL Baso # (Auto) 0.06 (0.00-0.30) K/uL Abs Immat Gran (auto) 0.01 (0.00-0.30) K/uL Imm/Tot Granulo (auto) 0.2 % SARS-CoV-2 (PCR) Negative SARS-CoV-2 (Negative) Influenza Type A (PCR) Negative PCR FLU A (Negative) Influenza Type B (PCR) Negative PCR FLU B (Negative) RSV (PCR) Negative PCR RSV (Negative) Imaging Data Chest x-ray: Attestation: I have reviewed the pertinent imaging results. My impression: No acute pathology on preliminary read, see no infiltrate, no effusions. Radiologist's impression: Patient: ROBERTH RUDD Facility:?[facility] Patient ID:?[id number] Site Patient ID:?[id number]. Site :?1945 Study:?XRay Chest portable-10/20/2023 7:37:31 PM Ordering Physician:?Ginger Grubbs Final Report: Indication: Worsening cough Technique: Single frontal view of the chest Comparison: Chest radiograph on February 11, 2020 Findings: The cardiomediastinal silhouette and pulmonary vasculature are within normal limits. No focal airspace consolidation, pleural effusion, or pneumothorax. No displaced fracture. Impression: No acute cardiopulmonary process. Dictated by Cedric Duval MD @ 10/20/2023 7:57:48 PM (Electronic Signature) Discharge Plan Discharge Clinical Impression: Viral upper respiratory illness Patient Disposition: Home, Self-Care Condition: Stable Instructions: Pharyngitis (ED), Upper Respiratory Infection (ED) Additional Instructions: Can use your inhaler or nebulizer per prescription as needed to help if you feel your asthma is starting to exacerbate. Do recommend Tylenol for pain management, follow bottle directions for dosing. The Tylenol should help the sore throat. Can try lozenges, cool or warm fluids and use whatever helps your throat feel better. If you feel your throat is worsening, develops fever, developed difficulty breathing or shortness of breath, have further concerning symptoms, do recommend re-evaluation. Otherwise, this is likely viral upper respiratory illness in you will likely have symptoms for about 7-10 days. Activity Level: Activity as Tolerated Prescriptions: No Action albuterol sulfate 2.5 mg /3 mL (0.083 %) solution for nebulization 2.5 mg inhalation Q4H PRN trazodone 50 mg tablet 50 - 100 mg PO HS PRN diphenoxylate-atropine 2.5-0.025 mg tablet 1 tab PO TID PRN potassium chloride 10 mEq tablet extended release 10 meq PO .DAILYWM venlafaxine 100 mg tablet 100 mg PO BID levothyroxine 88 mcg tablet 88 mcg PO DAILY hydrochlorothiazide 25 mg tablet 25 mg PO DAILY albuterol sulfate 90 mcg/actuation HFA aerosol inhaler 2 puff INHALATION TID PRN rosuvastatin 10 mg tablet 10 mg PO HS pregabalin 150 mg capsule 150 mg PO BID sucralfate [Carafate] 1 gram tablet 1 g PO BID Qty: 20 0RF famotidine [Pepcid] 40 mg tablet 40 mg PO DAILY Qty: 10 2RF acetaminophen 500 mg tablet 1,000 mg PO TID buspirone 15 mg tablet 15 mg PO BID cholestyramine (with sugar) [Questran] 4 gram powder in packet 1 ea PO BID cyanocobalamin (vitamin B-12) 1,000 mcg/mL solution 1,000 mcg IM Q30D epinephrine 0.3 mg/0.3 mL auto-injector 0.3 ml IM Q5-15M PRN Rx Instructions: do not exceed 3 doses per episode ferrous gluconate 324 mg (38 mg iron) tablet 324 mg PO DAILY gabapentin 100 mg capsule 100 mg PO TID Follow Up/Referrals: Padmini Kim PA-C [Primary Care Provider] - Stand Alone Forms: [facility] Info Instructions
--- NOTE | 2023-10-20 19:21 | XR_ITS ---
Patient: ROBERTH RUDD Facility:?[facility] Patient ID:?[id number] Site Patient ID:?[id number]. Site :?1945 Study:?XRay-Chest portable-10/20/2023 7:37:31 PM Ordering Physician:Rosenda Grubbs Final Report: Indication: Worsening cough Technique: Single frontal view of the chest Comparison: Chest radiograph on February 11, 2020 Findings: The cardiomediastinal silhouette and pulmonary vasculature are within normal limits. No focal airspace consolidation, pleural effusion, or pneumothorax. No displaced fracture. Impression: No acute cardiopulmonary process. Dictated by Cedric Duval MD @ 10/20/2023 7:57:48 PM Signed by:?Cedric Duval MD @10/20/2023 7:57:48 PM (Electronic Signature)
[2023-10-20 20:00] LABS: Basophils Absolute Auto 0.06 K/uL (0.00-0.30); Basophils Percent Auto 0.9 % (0.0-3.0); Eosinophils Percent Auto 8.3 % (0.0-7.0); Hematocrit 43.2 % (33.0-51.0); Hemoglobin* 14.3 gm/dL (12.0-16.0); Immature Granulocytes Abs Auto 0.01 K/uL (0.00-0.30); Immature Granulocytes Pct Auto 0.2 %; Lymphocytes Absolute Auto 2.09 K/uL (0.90-2.90); Lymphocytes Percent Auto 32.2 % (20-44); Mean Corpuscular HGB Conc 33 gm/dL (32-36); Mean Corpuscular Hemoglobin 31 pg (26-34); Mean Corpuscular Volume 93 fL (80-100); Monocytes Percent Auto 7.1 % (0.0-11.0); Neutrophils Absolute Auto 3.34 K/uL (1.7-7.0); Neutrophils Percent Auto 51.3 % (42.0-72.0); Platelet Count* 171 K/uL (140-440); Red Blood Count 4.67 m/uL (4.00-5.20)
[2023-10-20 20:05] LABS: Slide Review Reflex No
[2023-10-20 20:08] LABS: PCR FLU A Negative PCR FLU A (Negative); PCR FLU B Negative PCR FLU B (Negative); PCR RSV Negative PCR RSV (Negative); SARS PCR* Negative SARS-CoV-2 (Negative)
[2023-10-20 21:00] VITALS: PULSE 71; RESP 18; O2SAT 96
[2023-10-20] MEDS: ACETAMINOPHEN 500 MG TABLET 1000 MG PO (21:30)
== END 2023-10-20 22:04 | disposition home or self-care (01) ==
PROVIDERS: Emergency Provider Family Medicine; PCP Physician Assistant Medical
DX: J06.9 Acute upper respiratory infection, unspecified (principal)
CPT/HCPCS: 36415; 71045; 85025; 87631; 99284; A9270

== ENCOUNTER 2023-11-12 13:06 | Emergency (ER) | payer MEDICARE, SELFPAY ==
[2023-11-12 13:13] VITALS: BP 134/86; PULSE 70; RESP 16; TEMP 36.7; O2SAT 98; BMI 32.3
--- NOTE | 2023-11-12 13:35 | CT_ITS ---
Patient: ROBERTH RUDD Facility:?[facility] Patient ID:?[id number] Site Patient ID:?[id number]. Site :?1945 Study:?CT-Spine Cervical W/O-11/12/2023 2:39:38 PM Ordering Physician:RUSS Final Report: INDICATION: Fall. TECHNIQUE: CT of the cervical spine was performed without intravenous contrast. COMPARISON: None. FINDINGS: Alignment: Normal. Vertebrae: Vertebral bodies and posterior elements are intact without acute fracture. Moderate multilevel degenerative changes. Extra-vertebral soft tissues: Normal. Visualized brain: Normal. Additional comment: None. IMPRESSION: No acute displaced fracture or malalignment of the cervical spine. Please note that all CT scans at this facility use dose modulation, iterative reconstruction, and/or weight-based dosing when appropriate to reduce radiation dose to as low as reasonably achievable. Dictated by Miguel Roman MD @ 11/12/2023 2:54:19 PM Signed by:?Miguel Roman MD @11/12/2023 2:54:19 PM (Electronic Signature)
--- NOTE | 2023-11-12 13:35 | CT_ITS ---
Patient: ROBERTH RUDD Facility:?[facility] Patient ID:?[id number] Site Patient ID:?[id number]. Site :?1945 Study:?CT-Head W/O-11/12/2023 2:38:29 PM Ordering Physician:RUSS Final Report: Indication: Fall Technique: Volumetric multidetector CT images of the head were obtained without the administration of low osmolar intravenous contrast. Comparison: None available Findings: There is no intra-axial or extra-axial fluid collection. There is no mass effect or midline shift. There is age-related cortical atrophy with mild sulcal widening and ex vacuo dilatation of the lateral ventricles. There are chronic small vessel disease changes in the subcortical and periventricular white matter without lost lai-white differentiation. The orbits and their contents are grossly within normal limits. The bony calvarium is grossly intact. The paranasal sinuses are clear. The mastoid air cells are well aerated. Impression: Age-related and chronic small-vessel disease changes of the brain without acute intracranial abnormality. Please note that all CT scans at this facility use dose modulation, iterative reconstruction, and/or weight-based dosing when appropriate to reduce radiation dose to as low as reasonably achievable. Dictated by Luis Enrique Anderson MD @ 11/12/2023 2:44:05 PM Signed by:?Luis Enrique Anderson MD @11/12/2023 2:44:05 PM (Electronic Signature)
--- NOTE | 2023-11-12 13:38 | ED.GENADULT ---
HPI - General Adult General Chief complaint: Head Injury/Pain Stated complaint: Fell and hit head-no loss of con-came from Time Seen by Provider: 11/12/23 13:26 History of Present Illness HPI narrative: Patient is a 78 year white female who apparently fell last night going to the bathroom. She felt that she felt ?shaking inside? last night. She feels pretty well right now except she fell and she bumped into her right shoulder describes some right hip discomfort although she has been ambulatory and she describes some right cervical strap muscle tenderness. She went to Urgent Care she had a C-collar placed and she was asked to come to the emergency department. Patient denies focal neurologic changes, denies mid line pain in her spine. Describes some right trapezius muscle tenderness and she complains of a little bit of pain behind her right shoulder but she is able to move her shoulder fully in fact she was 1 short initially which shoulder was that was injured. She had no loss conscious by her report, she denies low back pain, denies pelvic pain, has been ambulatory. She told nursing staff she feels a little bit weaker than normal. She has no chest pain, no fevers, no cough, no abdominal pain. No dysuria frequency or urinary symptoms. Related Data Home Medications Medication Instructions Recorded Confirmed acetaminophen 500 mg tablet 1,000 mg PO TID 09/10/22 11/12/23 albuterol sulfate 2.5 mg/3 mL 2.5 mg inhalation Q4H PRN 09/10/22 11/12/23 (0.083 %) solution for nebulization albuterol sulfate 90 mcg/actuation 2 puff inhalation TID PRN 09/10/22 11/12/23 aerosol inhaler buspirone 15 mg tablet 15 mg PO BID 09/10/22 11/12/23 cholestyramine (with sugar) 4 gram 1 ea PO BID 09/10/22 11/12/23 powder for susp in a packet (Questran) cyanocobalamin (vitamin B-12) 1,000 mcg IM Q30D 09/10/22 11/12/23 1,000 mcg/mL injection solution diphenoxylate-atropine 2.5 1 tab PO TID PRN 09/10/22 11/12/23 mg-0.025 mg tablet epinephrine 0.3 mg/0.3 mL 0.3 ml IM Q5-15M PRN 09/10/22 11/12/23 injection, auto-injector ferrous gluconate 324 mg (38 mg 324 mg PO DAILY 09/10/22 11/12/23 iron) tablet gabapentin 100 mg capsule 100 mg PO TID 09/10/22 11/12/23 hydrochlorothiazide 25 mg tablet 25 mg PO DAILY 09/10/22 11/12/23 levothyroxine 88 mcg tablet 88 mcg PO DAILY 09/10/22 11/12/23 potassium chloride 10 mEq 10 meq PO .DAILYWM 09/10/22 11/12/23 tablet,extended release pregabalin 150 mg capsule 150 mg PO BID 09/10/22 11/12/23 rosuvastatin 10 mg tablet 10 mg PO HS 09/10/22 11/12/23 trazodone 50 mg tablet 50 - 100 mg PO HS PRN 09/10/22 11/12/23 venlafaxine 100 mg tablet 100 mg PO BID 09/10/22 11/12/23 Previous Rx's Medication Instructions Recorded famotidine 40 mg tablet (Pepcid) 40 mg PO DAILY #10 tabs 09/10/22 sucralfate 1 gram tablet (Carafate) 1 g PO BID #20 tabs 09/10/22 Allergies Allergy/AdvReac Type Severity Reaction Status Date / Time azithromycin Allergy Severe Swelling Verified 11/12/23 11:45 of Lip/Tongue/Throat Cephalosporins Allergy Severe Swelling Verified 11/12/23 11:45 of Lip/Tongue/Throat Corticosteroids Allergy Severe Swelling Verified 11/12/23 11:45 (Glucocorticoids) of Lip/Tongue/Throat diltiazem Allergy Severe Swelling Verified 11/12/23 11:45 of Lip/Tongue/Throat Penicillins Allergy Severe Swelling Verified 11/12/23 11:45 of Lip/Tongue/Throat prednisone Allergy Severe Swelling Verified 11/12/23 11:45 of Lip/Tongue/Throat Sulfa (Sulfonamide Allergy Severe Swelling Verified 11/12/23 11:45 Antibiotics) of Lip/Tongue/Throat nitrofurantoin Allergy Intermediate Rash Verified 11/12/23 11:45 [From Macrobid] STERLING Inhibitors Allergy Unknown Verified 11/12/23 11:45 rivaroxaban Allergy Unknown Hives Verified 11/12/23 11:45 Review of Systems Status of ROS: Reports: 6 or more systems reviewed and unremarkable except as noted in History and below [facility] Medical History Osteoarthritis of carpometacarpal (CMC) joint of right thumb ?M18.11 - Unilateral primary osteoarthritis of first carpometacarpal joint, right hand (ICD-10) Osteoarthritis of carpometacarpal (CMC) joint of left thumb ?M18.12 - Unilateral primary osteoarthritis of first carpometacarpal joint, left hand (ICD-10) Tremor ?R25.1 - Tremor, unspecified (ICD-10) Throat tightness ?R09.89 - Other specified symptoms and signs involving the circulatory and respiratory systems (ICD-10) Gastroesophageal reflux (03/14/12) ?K21.9 - Gastro-esophageal reflux disease without esophagitis (ICD-10) Chest wall pain ?R07.89 - Other chest pain (ICD-10) Cervical radiculopathy ?M54.12 - Radiculopathy, cervical region (ICD-10) Surgical History History of tonsillectomy ?Z90.89 - Acquired absence of other organs (ICD-10) History of arthroscopy of left shoulder (01/07/14) ?Z98.890 - Other specified postprocedural states (ICD-10) History of arthroscopy of right shoulder (10/02/12) ?Z98.890 - Other specified postprocedural states (ICD-10) H/O gastric bypass ?Z98.84 - Bariatric surgery status (ICD-10) 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) ?Z96.652 - Presence of left artificial knee joint (ICD-10) History of total right knee replacement (06/17/14) ?Z96.651 - Presence of right artificial knee joint (ICD-10) History of hysterectomy ?Z90.710 - Acquired absence of both cervix and uterus (ICD-10) H/O hernia repair ?Z98.890 - Other specified postprocedural states (ICD-10) ?Z87.19 - Personal history of other diseases of the digestive system (ICD-10) H/O breast biopsy ?Z98.890 - Other specified postprocedural states (ICD-10) Social History Smoking Status: Never smoker Do you use any of these nicotine containing products: None Second hand tobacco smoke exposure: No How often do you have a drink containing alcohol: never How often do you have six or more drinks on one occasion: Never AUDIT-C Alcohol total score: 0 Non-prescribed substance use: denies use service: No Exam Narrative: Exam Narrative: Objective: Patient's vital signs are within normal limits She is alert or x3 no distress C-collar is in place She has mild right-sided cervical strap muscle tenderness to base of her neck and in her trapezius muscle, there is no real midline tenderness No HEENT abnormalities noted Shoulders arms unremarkable she has some mild tenderness behind her right posterior shoulder but I am able to fully flex and extend internal external rotate her shoulder chest back abdomen pelvis unremarkable lower extremities unremarkable she got full range of motion of her hips, good internal external rotation. Const: Vital Signs, click to edit/add: Vital Signs - 24 hr 11/12/23 13:13 Temperature 98.0 F Pulse Rate [Pulse Oximeter] 70 Respiratory Rate 16 Blood Pressure [Ri ght Upper Arm] 134/86 Pulse Oximetry 98 Oxygen Delivery Me thod Room Air Course Vital Signs Vital signs: Initial Vital Signs Temperature 98.0 F 11/12/23 13:13 Temperature Source Temporal Artery Scan 11/12/23 13:13 Pulse Rate 70 11/12/23 13:13 Respiratory Rate 16 11/12/23 13:13 Blood Pressure 134/86 11/12/23 13:13 Blood Pressure Mean 102 11/12/23 13:13 Blood Pressure Position Sitting 11/12/23 13:13 Pulse Oximetry 98 11/12/23 13:13 Oxygen Delivery Method Room Air 11/12/23 13:13 Vital Signs Temperature 98.0 F 11/12/23 13:13 Pulse Rate 70 11/12/23 13:13 Respiratory Rate 16 11/12/23 13:13 Blood Pressure 134/86 11/12/23 13:13 Pulse Oximetry 98 11/12/23 13:13 Oxygen Delivery Method Room Air 11/12/23 13:13 Temperature 98.0 F 11/12/23 13:13 Pulse Rate 70 11/12/23 13:13 Respiratory Rate 16 11/12/23 13:13 Blood Pressure 134/86 11/12/23 13:13 Pulse Oximetry 98 11/12/23 13:13 Oxygen Delivery Method Room Air 11/12/23 13:13 Medical Decision Making MDM Narrative Medical decision making narrative: [age] white female who lives in her own home up presents to the ER from the urgent care with the neck pain. The patient reports that she fell last night after feeling abnormal going to the bathroom. She really does not have any fever vital signs look unremarkable at this time she has no specific complaints. Other than her orthopedic pediatric concerns she is not having complaints of a febrile illness or dysuria or any a viral type syndrome. I think could be appropriate overt given her age and her fall to check viral studies, lab studies. Will get a head and neck CT scan. Disposition pending their findings. Addendum at 3:00 p.m.: The patient's head and neck CT scans are read as chronic changes but no acute fracture, injury. Her C-collar be removed. I do not have suspicion for significant ligamentous injury. Her white count hemoglobin are normal, her ER profile is unremarkable, her CRP is less than 0.5, her viral studies are neg. I think she can be discharged home symptomatic management Tylenol Advil as needed, observation rest light activity fluids, return to primary care in the next several days. Return to ED as needed. Lab Data Labs: Lab Results 11/12/23 11/12/23 Range/Units 13:43 13:51 WBC 7.74 (4.50-11.00) K/uL RBC 4.63 (4.00-5.20) m/uL Hgb 14.3 (12.0-16.0) gm/dL Hct 43.1 (33.0-51.0) % MCV 93 (80-100) fL MCH 31 (26-34) pg MCHC 33 (32-36) gm/dL RDW Coeff of Bonnie 13.1 (11.5-15.5) % Plt Count 189 (140-440) K/uL Neut % (Auto) 57.5 (42.0-72.0) % Lymph % (Auto) 28.3 (20-44) % [place] % (Auto) 7.0 (0.0-11.0) % Eos % (Auto) 6.3 (0.0-7.0) % Baso % (Auto) 0.6 (0.0-3.0) % Neut # (Auto) 4.45 (1.7-7.0) K/uL Lymph # (Auto) 2.19 (0.90-2.90) K/uL [place] # (Auto) 0.50 (0.00-0.90) K/UL Eos # (Auto) 0.49 (0.00-0.50) K/uL Baso # (Auto) 0.05 (0.00-0.30) K/uL Abs Immat Gran (auto) 0.02 (0.00-0.30) K/uL Imm/Tot Granulo (auto) 0.3 % Sodium 139 (135-149) mmol/L Potassium 3.6 (3.6-5.1) mmol/L Chloride 99 (96-114) mmol/L Carbon Dioxide 32 (20-32) mmol/L Anion Gap 8 (7-15) mEq/L BUN 14 (7-30) mg/dL Creatinine 0.8 (0.5-1.5) mg/dL Estimated Creat Clear 54.83 Estimated GFR 76 ml/min Glucose 94 (60-115) mg/dL Calcium 9.5 (8.4-10.6) mg/dL C-Reactive Protein < 0.5 L (0.5-1.0) mg/dL SARS-CoV-2 (PCR) Negative SARS-CoV-2 (Negative) Influenza Type A (PCR) Negative PCR FLU A (Negative) Influenza Type B (PCR) Negative PCR FLU B (Negative) RSV (PCR) Negative PCR RSV (Negative) Discharge Plan Discharge Clinical Impression: Neck strain, Fall Patient Disposition: Home w/ Parent or Adult Condition: Stable Additional Instructions: Light activity, ice to the trapezius muscle area 5-10 minutes 3 times a day, Tylenol Advil as needed, recheck with regular doctor in 3-5 days, return to ED sooner problems concerns worsening. Activity Level: Light activity Discharge Diet: Regular Prescriptions: No Action albuterol sulfate 2.5 mg /3 mL (0.083 %) solution for nebulization 2.5 mg inhalation Q4H PRN trazodone 50 mg tablet 50 - 100 mg PO HS PRN diphenoxylate-atropine 2.5-0.025 mg tablet 1 tab PO TID PRN potassium chloride 10 mEq tablet extended release 10 meq PO .DAILYWM venlafaxine 100 mg tablet 100 mg PO BID levothyroxine 88 mcg tablet 88 mcg PO DAILY hydrochlorothiazide 25 mg tablet 25 mg PO DAILY albuterol sulfate 90 mcg/actuation HFA aerosol inhaler 2 puff INHALATION TID PRN rosuvastatin 10 mg tablet 10 mg PO HS pregabalin 150 mg capsule 150 mg PO BID sucralfate [Carafate] 1 gram tablet 1 g PO BID Qty: 20 0RF famotidine [Pepcid] 40 mg tablet 40 mg PO DAILY Qty: 10 2RF acetaminophen 500 mg tablet 1,000 mg PO TID buspirone 15 mg tablet 15 mg PO BID cholestyramine (with sugar) [Questran] 4 gram powder in packet 1 ea PO BID cyanocobalamin (vitamin B-12) 1,000 mcg/mL solution 1,000 mcg IM Q30D epinephrine 0.3 mg/0.3 mL auto-injector 0.3 ml IM Q5-15M PRN Rx Instructions: do not exceed 3 doses per episode ferrous gluconate 324 mg (38 mg iron) tablet 324 mg PO DAILY gabapentin 100 mg capsule 100 mg PO TID Follow Up/Referrals: Padmini Kim PA-C [Primary Care Provider] - Stand Alone Forms: [facility] Info Instructions
[2023-11-12 14:03] LABS: Basophils Absolute Auto 0.05 K/uL (0.00-0.30); Basophils Percent Auto 0.6 % (0.0-3.0); Eosinophils Absolute Auto 0.49 K/uL (0.00-0.50); Eosinophils Percent Auto 6.3 % (0.0-7.0); Hematocrit 43.1 % (33.0-51.0); Hemoglobin* 14.3 gm/dL (12.0-16.0); Immature Granulocytes Abs Auto 0.02 K/uL (0.00-0.30); Immature Granulocytes Pct Auto 0.3 %; Lymphocytes Absolute Auto 2.19 K/uL (0.90-2.90); Lymphocytes Percent Auto 28.3 % (20-44); Mean Corpuscular HGB Conc 33 gm/dL (32-36); Mean Corpuscular Hemoglobin 31 pg (26-34); Mean Corpuscular Volume 93 fL (80-100); Neutrophils Absolute Auto 4.45 K/uL (1.7-7.0); Neutrophils Percent Auto 57.5 % (42.0-72.0); Platelet Count* 189 K/uL (140-440); RDW Coefficient of Variation % 13.1 % (11.5-15.5); Red Blood Count 4.63 m/uL (4.00-5.20); White Blood Count* 7.74 K/uL (4.50-11.00)
[2023-11-12 14:04] LABS: Slide Review Reflex No
[2023-11-12 14:12] LABS: Chloride* 99 mmol/L (96-114); Potassium* 3.6 mmol/L (3.6-5.1); Sodium* 139 mmol/L (135-149)
[2023-11-12 14:15] LABS: Anion Gap 8 mEq/L (7-15); Blood Urea Nitrogen* 14 mg/dL (7-30); Carbon Dioxide* 32 mmol/L (20-32); Creatinine* 0.8 mg/dL (0.5-1.5); Est. Creatinine Clearance* 54.83; Estimated Glomerular Filt Rate 76 ml/min; Glucose* 94 mg/dL (60-115)
[2023-11-12 14:16] LABS: Calcium* 9.5 mg/dL (8.4-10.6)
[2023-11-12 14:23] LABS: C Reactive Protein* < 0.5 mg/dL (0.5-1.0)
[2023-11-12 14:38] LABS: PCR FLU A Negative PCR FLU A (Negative); PCR FLU B Negative PCR FLU B (Negative); PCR RSV Negative PCR RSV (Negative); SARS PCR* Negative SARS-CoV-2 (Negative)
== END 2023-11-12 15:19 | disposition home or self-care (01) ==
PROVIDERS: Emergency Provider Family Medicine; PCP Physician Assistant Medical
DX: S16.1XXA Strain of muscle, fascia and tendon at neck level, initial encounter (principal); W19.XXXA Unspecified fall, initial encounter
CPT/HCPCS: 36415; 70450; 72125; 80048; 85025; 86140; 87631; 99284

== ENCOUNTER 2023-12-30 18:22 | Outpatient (CLI) | payer MEDICARE, SELFPAY ==
--- OUTSIDE RECORDS SUMMARY | 2024-01-03 05:40 | XMS_ITS | Clinical Summary ---
Author Organization [facility] Address [address] [place] [id number] Care Team Providers Care Assembler Product Name Role Phone Padmini Kim Primary Care Provider [phone] Allergies Active Allergy Reactions Criticality Noted Date Comments Ampicillin Sodium Rash Low 03/30/2012 Cephalosporins Anaphylaxis High 07/14/2020 Hives, throat swelling/closing Propoxyphene N-Apap Other (See Comments) 2011 Swelling of face Diltiazem Anaphylaxis High 07/14/2020 Erythromycin Estolate Other (See Comments) 03/12 Swelling of face Lisinopril Cough 03/30/2012 Nitrofurantoin Rash Low 07/14/2020 Penicillins Swelling,Rash High 03/30/2012 Throat swelling/closing Prednisone Swelling High 07/14/2020 Face swelling Sulfa Antibiotics Anaphylaxis High 07/14/2020 Azithromycin Dihydrate Other (See Comments) High Swelling of face and throat Medications Medication Sig Dispensed Refills Start Date End Date Status triamterene-hydrochlo rothiazide (MAXZIDE-25) 37.5-25 MG per tablet Take 1 tablet by mouth daily. Active Levothyroxine Sodium (SYNTHROID PO) Take 88 mcg by mouth daily Active FLUoxetine HCl (PROZAC PO) Take by mouth 2 times daily Active Ferrous Sulfate (IRON SUPPLEMENT PO) Take by mouth daily (with breakfast) Active Diphenoxylate-Atropin e (LOMOTIL PO) Take 1-2 tablets by mouth as needed Active traZODone (DESYREL) 50 MG tablet Take 50 mg by mouth At Bedtime Active amLODIPine (NORVASC) 5 MG tablet Take 5 mg by mouth daily Active acetaminophen (TYLENOL) 500 MG tablet Take 500-1,000 mg by mouth every 6 hours as needed for mild pain Active albuterol (PROAIR HFA/PROVENTIL HFA/VENTOLIN HFA) 108 (90 Base) MCG/ACT inhaler Inhale 2 puffs into the lungs every 6 hours as needed for shortness of breath / dyspnea or wheezing Active rosuvastatin (CRESTOR) 10 MG tablet Take 10 mg by mouth daily Active Social History Tobacco Use Types Packs/Day Years Used Date Smoking Tobacco: Never Smokeless Tobacco: Never Alcohol Use Standard Drinks/Week Comments Yes 0 (1 standard drink = 0.6 oz pur e alcohol) socially Adolescent Education Answer Date Record ed Getting School Help Needed Not on file 05/17 Sex and Gender Information Value Date Recorded Sex Assigned at Not on file Gender Identity Not on file Sexual Orientation Not on file Last Filed Vital Signs Vital Sign Reading Time Taken Comments Blood Pressure 115/88 07/17/2020 4:46 PM GENERAL COUNSEL Pulse 68 07/17/2020 4:46 PM GENERAL COUNSEL Temperature 36.9 ??C (98.5 ??F) 07/17/2020 4:46 PM CS T Respiratory Rate 16 07/17/2020 4:46 PM GENERAL COUNSEL Oxygen Saturation 98% 07/17/2020 4:46 PM GENERAL COUNSEL Inhaled Oxygen Concentration - - Weight 81.6 kg (180 lb) 07/17/2020 12:42 PM GENERAL COUNSEL Height 149.9 cm (4' 11) 07/17/2020 12:42 PM GENERAL COUNSEL Body Mass Index 36.36 07/17/2020 12:42 PM GENERAL COUNSEL Plan of Treatment Health Maintenance Due Date Last Done Comments ADVANCE CARE PLANNING 1945 ANNUAL REVIEW OF HM ORDERS 1945 DEXA 1945 HEPATITIS C SCREENING 1965 DTAP/TDAP/TD IMMUNIZATION (1 - Tdap) 01/31/1999 01/30/1999 RSV VACCINE ( & 60+) (1 - 1-dose 60+ series) 2007 LIPID 11/14/2007 11/13/2006, 03/11, 02/25/2006, Additional history exists TSH W/FREE T4 REFLEX 11/14/2007 11/13/2006, 03/28/20 06 GLUCOSE 11/13/2009 11/13/2006, 02/08, 12/25/2005, Additional history exists FALL RISK ASSESSMENT 2012 MEDICARE ANNUAL WELLNESS VISIT 05/29/2021 05/29/2020 COVID-19 Vaccine ( season) 2023 PHQ-2 (once per calendar year) 2023 INFLUENZA VACCINE (Season Ended) 2024 05/03/2019, 05/18/2018, 04/28/2017, Additional history exists Pneumococcal Vaccine: 65+ Years Completed 05/18/2018, 07/03/2016, 12/10/1996 ZOSTER IMMUNIZATION Completed 05/19/2020, 10/24/2018, 08/07/2012 HPV IMMUNIZATION Aged Out No longer e ligible based on patient's age to complete this topic IPV IMMUNIZATION Aged Out No longer e ligible based on patient's age to complete this topic MENINGITIS IMMUNIZATION Aged Out No l onger eligible based on patient's age to complete this topic RSV MONOCLONAL ANTIBODY Aged Out No l onger eligible based on patient's age to complete this topic Procedures Procedure Name Priority Date/Time Associated Diagnosis Comments COMPREHENSIVE METABOLIC PANEL Routine 11/13/2006 2:55 PM CDT TSH Routine 11/13/2006 2:55 PM CDT LIPID PROFILE Routine 11/13/2006 2:55 PM CDT from Last 3 Months or Most Recently Relevant to Health Maintenance Results * TSH (11/13/2006 2:55 PM CDT) TSH 1.39 0.4 - 5.0 mU/L [facility] 11/13/2006 2:55 PM CDT 11/13/2006 2:43 PM CDT [facility] - BLOOD ORDERABL ES [facility] * (ABNORMAL) Lipid panel (11/13/2006 2:55 PM CDT) Cholesterol 178 0 - 200 mg/dL [facility] Comment: LDL Cholesterol is the primary guide to therapy: LDL-cholesterol goal in high risk patients is <100 mg/dL and in very high risk patients is <70 mg/dL. The NCEP recommends further evaluation of: patients with cholesterol <200 mg/dL if additionalrisk factors are present, cholesterol >240 mg/dL, triglycerides >150 mg/dL, or HDL <40 mg/dL. Triglycerides 156(H) 0 - 150 mg/dL [facility] HDL Cholesterol 50 50 - 110 mg/dL [facility] LDL Cholesterol Calculated 97 0 - 129 mg/dL [facility] VLDL-Cholesterol 31(H) 0 - 30 mg/dL [facility] Cholesterol/HDL Ratio 3.6 0.0 - 5.0 [facility] 11/13/2006 2:55 PM CDT 11/13/2006 2:43 PM CDT [facility] - BLOOD ORDERABL ES M[facility]YS * (ABNORMAL) Comprehensive metabolic panel (11/13/2006 2:55 PM CDT) Sodium 142 133 - 144 mmol/L [facility] Potassium 4.2 3.4 - 5.3 mmol/L [facility] Chloride 100 94 - 109 mmol/L [facility] Carbon Dioxide 29 20 - 32 mmol/L [facility] Glucose 88 60 - 110 mg/dL [facility] Urea Nitrogen 15 7 - 30 mg/dL [facility] Creatinine 0.74 0.60 - 1.30 mg/dL [facility] GFR Estimate 85 >60 mL/min/1.7 m2 [facility] GFR Estimate If Black >90 >60 mL/min/1.7 m2 [facility] Calcium 9.6 8.5 - 10.4 mg/dL [facility] AST 29 0 - 45 U/L [facility] Protein Total 8.3(H) 6.0 - 8.2 g/dL [facility] Anion Gap 13 6 - 17 mmol/L [facility] Albumin 4.6(H) 3.2 - 4.5 g/dL [facility] ALT 32 0 - 50 U/L [facility] Alkaline Phosphatase 114 40 - 150 U/L [facility] Bilirubin Total 0.4 0.2 - 1.3 mg/dL [facility] 11/13/2006 2:55 PM CDT 11/13/2006 2:43 PM CDT [facility] - BLOOD ORDERABL ES MISYS from Last 3 Months or Most Recently Relevant to Health Maintenance Care Teams Assembler Product Relationship Specialty Start Date End Date Padmini Kim PCP - General 03/24/12
--- OUTSIDE RECORDS SUMMARY | 2024-01-03 05:40 | XMS_ITS | Continuity of Care Document ---
Author Organization [facility] Address [address] [address] [place] [address] Phone Care Team Providers Care [employer]ic[employer] Name Role Phone Vladimir MÉNDEZFelisha Unavailable Unavailable [...] Endo; W/insrt Guide Wire Offic/outpt E&m Estab Mod-me 2 22 Ugi Endo; W/endo Ultrasound Ex 20 Telephone E&M III 21-30 Min ROSAMARIA Sigmoidoscopy Flex; W/bx 1/mx 9 Ugi Endo; W/insrt Guide Wire Level Iv-surg Path Gross/micro 19 Ugi Endo; W/insrt Guide Wire Ugi Endo; W/insrt Guide Wire Ugi Endo; W/insrt Guide Wire Sigmoidoscopy Flex; W/bx 1/mx 5 Offic/outpt E&m Estab Mod-me 2 15 Ugi Endo; W/insrt Guide Wire Ugi Endo; W/bx 1/mx Level Iv-surg Path Gross/micro 14 Ugi Endo; W/insrt Guide Wire Colonoscopy Flex; Dx (apr) 14 Offic/outpt E&m Estab Mod-hi 2 14 Ugi Endo; W/insrt Guide Wire Offic/outpt E&m Estab Mod-me 2 12 [id number] Offic/outpt E&m Estab Mod-me 2 10 [id number] Ugi Endo; W/insrt Guide Wire Ugi Endo; W/insrt Guide Wire Ugi Endo; W/bx 1/mx Level Iv-surg Path Gross/micro 08 Offic/outpt E&m Estab Mod-me 2 08 Advance Directives Directive Yes / No Effective Date File Name No Information Encounters Encounter Description Practice Location Reason(s) For Visit Diagnoses Date Provider Providers Copied on Encounter [facility] GELA [address] [address], [place], [id number], [place] tel:[phone] [facility] No Information 3 Vladimir DEV Felisha. [address] [facility] [address], [place], [id number], [place]. [phone] Referring Provider: Chuy De Souza, [address], [address]. [phone] [facility], [address] [address], [place], [id number], [place] tel:[phone] [facility] GI Symptoms or Concerns (chief complaint) Esophageal dysphagiaHistor y of gastric bypass 3 Heath Vera. [address], [id number], [place]. [phone] Referring Provider: Referral Self, USE FOR SELF REFERRALS. [facility], [address] [address], [place], [id number], [place] tel:[phone] [facility] No Information 3 Suraj Deleon. [address] [facility] [address], [place], [id number], [place]. tel:[phone] [facility], [address] [address], [place], [address], [place] tel:[phone] [facility] Dysphagia, unspecified 3 Heath Vera. [address] [facility] [address], [place], [id number], [place]. tel:[phone] Offic/outpt E&m Estab Mod-hi 2 [facility], [address] [address], [place], [address], [place] tel:[phone] [facility] GI Symptoms or Concerns (chief complaint) Diarrhea, unspecifiedRigh t sided abdominal painDysphagia, unspecified 2 Heath Vera. [address] [facility] [address], [place], [id number], [place]. tel:[phone] Referring Provider: Referral Self, USE FOR SELF REFERRALS. [facility], [address] [address], [place], [id number], [place] tel:[phone] [facility] No Information 2 Suraj Deleon. [address] [facility] [address], [place], [place], [address], [place]. tel:[phone] [facility], [address] [address], [place], [id number], [place] tel:[phone] [facility] No Information 0 Rik Brooks. [address] [facility] [address], [place], [id number], [place]. tel:[phone] Referring Provider: Todd Chavarria, [address], [address]. tel:[phone] [facility], [address] [address], [place], [id number], [place] tel:[phone] [facility] Dilated bile duct 0 Heath Vera. [address] [facility] [address], [place], [id number], [place]. tel:[phone] Telephone E&M III 21-30 Min ROSAMARIA [facility], [address] [address], [place], [id number], [place] tel:[phone] [facility] GI Symptoms or Concerns (chief complaint) Dilated bile ductRight sided abdominal pain 0 Heath Vera. [address] [facility] [address], [place], [address], [place]. tel:[phone] Referring Provider: Referral Self, USE FOR SELF REFERRALS. [facility], [address] [address], [place], [id number], [place] tel:[phone] [facility] No Information 0 Heath Vera. [address] [facility] [address], [place], [address], [place]. tel:[phone] [facility], [address] [address], [place], [id number], [place] tel:[phone] [facility] No Information 0 Belem Baez. [address] [facility], [place], [place], [id number], [place]. tel: [phone] [facility], [address] [address], [place], [id number], [place] tel:[phone] [facility] Change in bowel movement 9 Heath Vera. [address] [facility], [facility] [address], [place], [place], [address], [place]. tel:[phone] [facility], [address] [address], [place], [id number], [place] tel:[phone] [facility] Dysphagia, unspecifiedBari atric surgery statusHemorrhoi ds, internalDiarrhe a, unspecifiedHemo rrhage of anus and rectumDysphagia , unspecifiedOthe r hemorrhoids 9 Heath Vera. [address] [facility], [address], [id number], [place]. tel:[phone] Referring Provider: Referral Self, USE FOR SELF REFERRALS. [facility], [address] [address], [place], [id number], [place] tel:[phone] [facility] Diarrhea, unspecified typeDysphagia, unspecified 9 Heath Vera. [address] [facility] [address], [place], [address], [place]. tel:[phone] [facility], [address] [address], [place], [id number], [place] tel:[phone] [facility] Dysphagia, unspecified 8 Heath Vera. [address] [facility] [address], [place], [address], [place]. tel:[phone] [facility], [address] [address], [place], [id number], [place] tel:[phone] [facility] Dysphagia, unspecifiedOthe r specified postprocedural statesBariatric surgery statusDysphagia , unspecifiedBari atric surgery status 8 Heath Vera. [address] [facility], [place] [address], [place], [place], [id number], [place]. tel:[phone] Referring Provider: Referral Self, USE FOR SELF REFERRALS. [facility], [address] [address], [place], [id number], [place] tel:[phone] [facility] Dysphagia, unspecified type 8 Heath Vera. [address] [facility], [address], [id number], [place]. tel:[phone] [facility], [address] [address], [place], [id number], [place] tel:[phone] [facility] Dysphagia, unspecifiedHist ory of gastric surgeryDysphagi a, unspecified Oct- 8 Haeth Vera. [address] [facility], [address], [id number], [place]. tel:[phone] Referring Provider: Referral Self, USE FOR SELF REFERRALS. [facility], [address] [address], [place], [id number], [place] tel:[phone] [facility] Dysphagia, unspecified type 7 Stanley Sheehan. [address] [facility] [address], [place], [address], [place]. tel:[phone] [facility], [address] [address], [place], [address], [place] tel:[phone] [facility] No Information 5 Heath Vera. [address] [facility], [place] [address], [place], [place], [address], [place]. tel:[phone] Referring Provider: Chuy De [place]za, [address] [place] [address], [address]. 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 [address] [place] [address], [id number], [place]. tel:[phone] Referring Provider: Referral Self, USE FOR SELF REFERRALS. [facility], [address] [address], [place], [address], [place] tel:[phone] [facility] Diarrhea 5 Heath Vera. [address] [place] [address], [id number], [place]. tel:[phone] Referring Provider: Padmini STORM, [address] [place] [address], [address]. tel:[phone] [facility], [address] [address], [place], [address], [place] tel:[phone] [facility] Post-surgical bowel anastomosis status 4 Heath Vera. [address] [place] [address], [id number], [place]. tel:[phone] Referring Provider: Referral Self, USE FOR SELF REFERRALS. [facility], [address] [address], [place], [address], [place] tel:[phone] [facility] Chest Pain Nos 4 Heath Vera. [address] [place] [address], [id number], [place]. tel:[phone] Referring Provider: Padmini STORM, [address] [place] [address], [address]. tel:[phone] [facility], [address] [address], [place], [id number], [place] tel:[phone] [facility] No Information 4 Heath Vera. [address] [place] [address], [id number], [place]. tel:[phone] Referring Provider: Padmini STORM, [address] [place] [address], [place], [address]. tel:[phone] Offic/outpt E&m Estab Mod-hi 2 [facility], [address] [address], [place], [place], [id number], [place] tel:[phone] [facility] Dysphagia, UnspecifiedDysp hagia, UnspecifiedDiar rheaColon Cancer Screening 4 Heath Vera. [address] [place] [address], [id number], [place]. tel:[phone] Referring Provider: Referral Self, USE FOR SELF REFERRALS. [facility], [address] [address], [place], [place], [address], [place] tel:[phone] [facility] No Information 2 Heath Vera. [address] [place] [address], [id number], [place]. tel:[phone] Referring Provider: Padmini STORM, [address] [place] [address], [address]. tel:[phone] Offic/outpt E&m Estab Mod-hi 2 [facility], [address] [address], [place], [place], [id number], [place] tel:[phone] [facility] esoph. pain / food sticking (chief complaint) Dysphagia, UnspecifiedChes t Pain Nos 2 Heath Vera. [address] [place] [address], [id number], [place]. tel:[phone] Referring Provider: Nieves Encarnacion [facility], [address], [address]. tel:[phone] Offic/outpt E&m Estab Mod-hi 2 [facility], [address] [address], [place], [id number], [place] tel:[phone] [facility] Abdominal pain (chief complaint) Small Bowell ObstructionAbd Pain Generalized 0 No Information Referring Provider: Geraldo Cline, [address] [facility], [place], [address]. tel:[phone] [facility], [address] [address], [place], [id number], [place] tel:[phone] [facility] No Information 9 Heath Vera. [facility] [address], [id number], [place]. tel:[phone] Referring Provider: Geraldo Cline, [address] [facility], [place], [address]. tel:[phone] [facility] [place], [address] [address], [facility] [place], [id number], [place] tel:[phone] [facility] Esoph Stricture/schat zki RingPost-op Aftercare NecEsoph Stricture/schat zki RingPost-op Aftercare Nec 8 Heath Vera. [address] [place] [address], [id number], [place]. tel:[phone] Referring Provider: Rosa Stiles, [address] [place], [address]. tel:[phone] Offic/outpt E&m Estab Mod-hi 2 [facility], [address] [address], [place], [id number], [place] tel:[phone] [facility] No Information 8 Heath Vera. [facility], [address], [id number], [place]. tel:[phone] Referring Provider: Chuy [place], [address] [place] [address], [address]. tel:[phone] Family History Family Member Type Diagnosis Age [...] libertarian ID Authoriza tion(s) [employer] Medicare MB [id number] Social History Type Description Quantity Date Captured Comments Sex Female Smoking Status No Information Chief Complaint And Reason For Visit No Information Reason For Referral Reason For Referral No Information Plan Of Treatment Date Type Action Status Goal Lifestyle education regardin g diet completed Referral Ordered: referred to [facility] on [address] [facility] ? right-sided musculoskeletal pain ordered [...] Information Instructions Date Instruction Additional Infor mony Hemorrhoids Related to Hemor rhoids, internal High Fiber Diet Related to Hemor rhoids, internal Lifestyle education regarding di et Related to Dietary surveillance and counseling Flexible Sigmoidoscopy Related t o Diarrhea Assessments Type Assessment Date No Information Patient Care Teams Name Effective Dates (start - stop) Status Members No Information
--- OUTSIDE RECORDS SUMMARY | 2024-01-03 05:40 | XMS_ITS | Referral Summary ---
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 DRIVER Pulse 68 07/17/2020 4:46 PM WATER TAXI DRIVER Temperature 36.9 ??C (98.5 ??F) 07/17/2020 4:46 PM CS T Respiratory Rate 16 07/17/2020 4:46 PM WATER TAXI DRIVER Oxygen Saturation 98% 07/17/2020 4:46 PM WATER TAXI DRIVER Inhaled Oxygen Concentration - - Weight 81.6 kg (180 lb) 07/17/2020 12:42 PM WATER TAXI DRIVER Height 149.9 cm (4' 11) 07/17/2020 12:42 PM WATER TAXI DRIVER Body Mass Index 36.36 07/17/2020 12:42 PM WATER TAXI DRIVER Plan of Treatment Not on file Procedures Procedure Name Priority Date/Time Associated Diagnosis Comments COMPREHENSIVE METABOLIC PANEL Routine 11/13/2006 2:55 PM CDT TSH Routine 11/13/2006 2:55 PM CDT LIPID PROFILE Routine 11/13/2006 2:55 PM CDT from Last 3 Months or Most Recently Relevant to Health Maintenance Results * TSH (11/13/2006 2:55 PM CDT) TSH 1.39 0.4 - 5.0 mU/L MISYS 11/13/2006 2:55 PM CDT 11/13/2006 2:43 PM CDT Yanely Trevino LAB - BLOOD ORDERABL ES MISYS * [...] PM CDT 11/13/2006 2:43 PM CDT Yanely Trevino LAB - BLOOD ORDERABL ES Performing Organization Address [facility] Co de Phone Number MISYS * (ABNORMAL) Comprehensive metabolic panel (11/13/2006 [...] 2:55 PM CDT 11/13/2006 2:43 PM CDT Yanelysharmaine Gonzalezmon LAB - BLOOD ORDERABL ES MISYS from Last 3 Months or Most Recently Relevant to Health Maintenance Care Teams Processor Helper Relationship Specialty Start Date End Date Padmini Kim PCP - General 03/24/12
--- OUTSIDE RECORDS SUMMARY | 2024-01-03 05:40 | XMS_ITS | Clinical Summary ---
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 Name Role Phone Padmini Kim Primary Care Provider Elodia Barnes Unavailable [phone] David Whittaker MD Unavailable Jaime Joe MD Unavailable [phone] Allergies Active Allergy Reactions Criticality Noted Date Comments Jere Inhibitors 11/04/2006 cough Azithromycin Hives,Throat Swelling/Closing 11/04/2006 Cephalosporins Hives,Throat Swelling/Closing 11/04/2006 Diltiazem Throat Swelling/Closing 11/04/2006 fatigue Heparin Rash 04/24/2022 Levofloxacin Hives 04/24/2022 Nitrofurantoin Rash 10/29/2010 Penicillins Hives,Throat Swelling/Closing 11/04/2006 Prednisone Edema,Flushing Low 11/04/2006 Face swelling Tolerated betamethasone injections. Propoxyphene Hcl Angioedema 04/24/2022 Sulfa (Sulfonamide Antibiotics) Hives,Throat Swelling/Closing,A naphylaxis High 11/04/2006 Propoxyphene-Acetaminop hen Other - Describe In Comment Field 03/30/2012 Swelling of face Medications Medication Sig Dispensed Refills Start Date End Date Status EPINEPHrine (EPIPEN) 0.3 mg/0.3 mL injection INJECT 0.3 MG INTRAMUSCULAR ONE TIME FOR 1 DOSE. 1 Active NebulizerIndicati ons:Mild intermittent asthma with exacerbation Nebulizer, disposable neb kit x 4, reuseable neb kit x 1, mask x 1, filters x 1. Frequency of use: daily; Medication: albuterol Length of need: 99 months 1 Each 2 Active nystatin powder (MYCOSTATIN) powderIndications :Rash Apply 1 Strip topically to affected area(s) four times daily. 30 g 3 Active nystatin (MYCOSTATIN) creamIndications: Rash Apply topically to affected area(s) two times daily. 30 g 2 3 Active cetirizine (ZYRTEC) 10 mg tabletIndications :Pruritic rash Take 1 Tablet (10 mg) by mouth once daily. 30 Tablet 3 Active Syringe with Needle, Disp, (B-D 3cc Luer-Fabiola Syr 25Gx5/8) 3 mL 25 x 5/8Indications:S /P gastric bypass Use daily as needed for catheter line flush. 50 Each 4 Active rosuvastatin (CRESTOR) 10 mg tabletIndications :Coronary artery disease, unspecified vessel or lesion type, unspecified whether angina present, unspecified whether choctaw or transplanted heart TAKE 1 TABLET BY MOUTH EVERYDAY AT BEDTIME 90 Tablet 2 4 Active busPIRone (BUSPAR) 15 mg tabletIndications :Anxiety TAKE 1 TABLET (15 MG) BY MOUTH IN THE MORNING AND 1 TABLET (15 MG) IN THE EVENING. 180 Tablet 1 4 Active levothyroxine (SYNTHROID) 88 mcg tabletIndications :Hypothyroidism (acquired) TAKE 1 TABLET BY MOUTH ONCE DAILY. 90 Tablet 1 4 Active cyanocobalamin (VITAMIN B12) 1,000 mcg/mL injectionIndicati ons:S/P gastric bypass INJECT 1 ML INTRAMUSCULARLY ONCE A MONTH DIRECTED 3 mL 3 4 Active Ferrous Gluconate 324 mg (38 mg iron) tabletIndications :S/P gastric bypass,Anemia of unknown etiology TAKE 1 TAB ONCE DAILY WITH A MEAL. EACH 324 MG FERROUS GLUCONATE TABLET CONTAINS 38MG ELEMENTAL IRON 90 Tablet 3 4 Active hydroCHLOROthiazi de (HCTZ) 25 mg tabletIndications :Hypertension, unspecified type Take 1 Tablet (25 mg) by mouth once daily. 90 Tablet 3 4 Active potassium chloride 10 mEq extended-release tablet (part/cryst)Indic ations:Hypokalemi a Take 1 Tablet (10 mEq) by mouth once daily with a meal. 90 Tablet 3 4 Active pregabalin (LYRICA) 150 mg capsuleIndication s:Fibromyalgia Take 1 Capsule (150 mg) by mouth two times daily. 180 Capsule 3 4 Active traZODone (DESYREL) 50 mg tabletIndications :Insomnia, idiopathic Take 1-2 Tablets (50-100 mg) by mouth at bedtime if needed for Sleep. 180 Tablet 3 4 Active venlafaxine (EFFEXOR) 100 mg tabletIndications :Anxiety with somatic features,Dysthymi c disorder Take 1 Tablet (100 mg) by mouth two times daily. 180 Tablet 3 4 Active diphenoxylate-atr opine, 2.5-0.025 mg, (LOMOTIL) 2.5-0.025 mg tabletIndications :Diarrhea, unspecified type,S/P gastric bypass TAKE 1 TABLET BY MOUTH 3 TO 4 TIMES DAILY UNTIL YOU GAIN CONTROL, THEN TAKE 1 TABLET TWICE DAILY. 90 Tablet 1 4 Active potassium chloride 10 mEq Extended-Release tabletIndications :Hypokalemia TAKE 1 TABLET (10 MEQ) BY MOUTH TWO TIMES DAILY WITH MEALS. 90 Tablet 2 4 Active albuterol 0.083% (2.5 mg/3 mL) neb solutionIndicatio ns:Cough, unspecified type Inhale 3 mL (2.5 mg) via a nebulizer every 4 hours if needed for Cough 1st choice. 180 mL 4 Active albuterol HFA (ProAir HFA) 90 mcg/actuation inhalerIndication s:Cough, unspecified type Inhale 2 Puffs by mouth 3 times daily if needed for Wheezing. 1 Each 1 4 Active triamcinolone (ARISTOCORT; KENALOG) 0.1 % creamIndications: Pruritic rash Apply topically to affected area(s) two times daily. 80 g 4 Active triamcinolone (ARISTOCORT; KENALOG) 0.1 % creamIndications: Pruritic rash Apply topically to affected area(s) two times daily. 80 g 3 12/10/19 24 Discontinue d(Reorder (E-cancel not sent)) doxycycline monohydrate (MONODOX) 100 mg capsuleIndication s:Bronchitis Take 1 Capsule (100 mg) by mouth two times daily for 10 days. 20 Capsule 4 12/05/19 24 clindamycin (CLEOCIN) 300 mg capsuleIndication s:Tooth infection Take 1 Capsule (300 mg) by mouth three times daily for 7 days. 21 Capsule 4 12/17/19 24 Active Problems Problem Noted Date Diagnosed Date Malignant melanoma of torso excluding breast 12/2023 Class 2 severe obesity with body mass index (BMI) of 35 to 39.9 with serious comorbidity 09/15/2023 Mild cognitive impairment 12/19/2022 Overview: SLUMS 12/18/22: indicating MCI. Repeat cognitive testing in one year. S/P panniculectomy 06/10/2022 Anxiety with somatic features 12/05/2015 Irritable bowel syndrome 04/06/2015 Pannus, abdominal 10/21/2013 ANANDA 04/26/2013 AHI-6.7 05/13/2013 Fibromyalgia 12/25/2012 Sensorineural hearing loss, bilateral 11/10/2012 ACP (advance care planning) 04/21/2012 Overview: Advance Care Plan Documents No Documents on File Adjustment disorder with mixed anxiety and depre ssed mood 10/30/2011 Encounter for long-term (current) use of other m edications 08/27/2011 Overview: Benzodiazepine (Ativan through [facility]). No known misuse. Uses periodically. Moderate major depression 08/27/2011 GERD (gastroesophageal reflux disease) 1 Vitamin D deficiency 05/10/2010 Unspecified asthma(493.90) 11/04/2006 Unspecified essential hypertension 11/04/2006 Unspecified hypothyroidism 11/04/2006 Resolved Problems Problem Noted Date Diagnosed Date Resolved Date Severe obesity 01/15/2019 11/30/2020 Cognitive dysfunction 12/05/20152023 Gas 04/06/2015 11/30/2020 Pain medication agreement 04/12/2014 Overview: Tylenol with Codeine, 1-2 tabs/day. 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: 07/31/2017; as expected 150 pills in 148 days with fills every 18-42 days Utox: planned 07/31/2017 Adjustment disorder with mix ed anxiety and depressed mood 09/28/2010 08/27/2011 Encounters Date Type Department Care Team Description 01/01/2024 9:00 AM CDT Office Visit [address] [address] Domonique Khan PsyD, MARA Individual Therapy 01/01/2024 Travel 12/30/2023 Nurse Triage [facility] [address] [place] [address] Padmini Kim PA Dizziness (Intermittent dizziness, shakiness, diaphoresis & slurred speech) 12/10/2023 2:00 PM CDT Office Visit [facility] [address] [place] [address] Padmini Kim PA Mouth Problem (Wants to make sure there isnt an infection where she lost a tooth) 12/10/2023 Travel 12/10/2023 Nurse Triage [facility] [address] [place] [address] Padmini Kim PA Dental Problem 12/09/2023 Refill [facility] [address] [place] [address] Padmini Kim PA Refill Request (Cyanocobalamin, Triamcinolone) 11/27/2023 2:00 PM CDT Office Visit [facility] [address] [place] [address] Domonique Khan PsyD, LP Individual Therapy; Trmt Plan 11/27/2023 Travel 11/25/2023 10:50 AM CDT Office Visit [facility] [address] [place] [address] Padmini Kim PA Medicare ANNUAL (subsequent) Visit (78 years old) 11/25/2023 Travel 11/20/2023 Refill [facility] [address] [place] [address] Padmini Kim PA Refill Request (Diphenoxylate-atro pine (2.5-0.025 Mg)) 11/20/2023 Refill [facility] [address] [place] [address] Padmini Kim PA Refill Request (Diphenoxylate-atro pine (2.5-0.025 Mg), Potassium Chloride) 11/20/2023 Refill [facility] [address] [place] [address] Padmini Kim PA Refill Request (Diphenoxylate-atro pine (2.5-0.025 Mg)) 11/12/2023 Orders Only [facility] Scanner 1 scan: (1-Ord) [place], CERVICAL SPINE WO, 11/12/2023 11/12/2023 Orders Only [facility] Scanner 1 scan: (1-Ord) [facility], HEAD W/O CONTRAST, 11/12/2023 11/12/2023 Telephone [facility] [address] [place] [address] Padmini Kim PA Appointment (Missed appointment ) 11/12/2023 Refill [facility] [address] [place] [address] Padmini Kim PA Refill Request (Trazodone, Levothyroxine) 11/11/2023 Refill [facility] [address] [place] [address] Padmini Kim PA Refill Request (Buspirone) 11/10/2023 Refill [facility] [address] [place] [address] Padmini Kim PA Refill Request (Rosuvastatin) 11/06/2023 Refill [facility] [address] [place] [address] Padmini Kim PA Refill Request (Potassium Chloride) 11/02/2023 7:40 AM CDT Telemedicine [facility] [address] [place] [phone] Luz Maria White NP Telehealth ( /Why I can't get thru this sore throat, running nose, now toothache ( tooth is loose)/No vitals taken -virtual visit./) 10/22/2023 12:00 PM CDT Phone Office Visit [facility] [id number] [place] [address] Domonique Khan PsyD, LP Phone Visit 10/22/2023 Telephone [facility] [id number] [place] [address] Domonique Khan PsyD, LP FYI 10/20/2023 Orders Only [facility] Scanner 1 scan: (1-Ord) [place], CHEST , 10/20/2023 10/20/2023 Nurse Triage [facility] [address] [place] [address] Padmini Kim PA Throat Pain/problem 10/11/2023 Refill [facility] [address] [place] [address] Padmini Kim PA Refill Request (Venlafaxine) from Last 3 Months Immunizations Name Administration Dates Next Due AMB Influenza, IIV3 (Age >=3 years)(Flu Clinic Only) 06/13/2008 AMB Influenza, IIV4 PF (=>6 mos Flulaval,Fluzone Fluarix)(Flu Clinic Only) 05/02/2014 COVID-19 Vaccine Spikevax (M oderna 50mcg/0.5mL) 12YO+ [id number] Formula PF 09/15/2023 COVID-19 vaccine (ReachForce-Bio NTech 30mcg/0.3mL) 12YO+ BIVALENT PF, MDV 07/17/2022 COVID-19 vaccine (Pfizer-Bio NTech 30mcg/0.3mL) PF, MDV 06/08/2021,12/05/2020,11/14/2020 Influenza Virus, Unspecified 05/21/2005,05/23/20 04,05/25/2003 Influenza, High-dose Inactivated 05/22/2016,05/11 Influenza, IIV3 (Age 6-35 mos) 05/07/2011 Influenza, IIV3 (Age >=3 years) 04/26/20 13,05/07/2011,06/20/2010,2008,06/13/2008,06/03/2007,06/09/2006 Influenza, IIV4 05/02/2014 Influenza, Inactivated AIIV4 (Age 65+ Years) Preserv Free 05/23/2023,07/17/2022,06/08/2021 Influenza, Inactivated IIV3 (Age 65+ Years) Preserv Free 05/03/2019,05/18/2018,04/28/2017 Pneumococcal Poly,23-Valent (Pneumovax) 05/18/2018,12/10/1996 Pneumococcal conj 13-Valent (Prevnar 13) 07/03/2016 Td (Age >=7 Years) 01/30/1999 Tdap 03/04/2012 Zoster (Shingrix-RZV, recombinant) 08/16/2020,,10/24/2018 Zoster (Zostavax-ZVL, live) 08/07/2012 Family History Medical History Relation Name Comments Cancer-breast Daughter Hyperlipidemia Father Hypertension Father Stroke Father Cancer Mother parotid gland Hyperlipidemia Mother Other Mother parotid gland c a Anesthesia Problem No Family History Blood Disease No Family History Cancer-ovarian No Family History Relation Name Status Comments Daughter (Age 40 yr) 10/2009, following long illness Father Mother Social History Tobacco Use Types Packs/Day Years Used Date Smoking Tobacco: Never Smokeless Tobacco: Never Tobacco Cessation:Counseling Given: Yes Alcohol Use Standard Drinks/Week Comments Not Currently 0 (1 standard drink = 0.6 oz pur e alcohol) 2 days per week on average PHQ-2 Answer Date Recorded PHQ-2 TOTAL SCORE 4 11/25/2023 Social Connections Answer Date Recorded Frequency of Communication with Friends and Fami ly Not on file 11/28/2023 Financial Resource Strain Answer Date R ecorded Difficulty of Paying Living Expenses 3 11/27/2022 Difficulty of Paying Living Expenses Not on file 11/27/2022 Food Insecurity Answer Date Recorded Worried About Running Out of Food in the Last Ye ar 1 11/27/2022 Transportation Needs Answer Date Record ed Lack of Transportation (Medical) 1 11/27/2022 Housing Stability Answer Date Recorded Unable to Pay for Housing in the Last Year 1 11/27/2022 Sex and Gender Information Value Date Recorded Sex Assigned at Not on file Gender Identity Not on file Sexual Orientation Not on file Obstetrics History Para Term AB IAB SAB Ectopic Multiple Livin g Live Births 3 3 3 2 Date Outcome GA Total Labor Labor/2nd/3rd Weight Sex Delivery Anes PTL Oksana A1 A5 Name Cl in Term Term Term Last Filed Vital Signs Vital Sign Reading Time Taken Comments Blood Pressure 122/81 12/10/2023 2:14 PM CDT Pulse 66 12/10/2023 2:14 PM CDT Temperature 36.6 ??C (97.9 ??F) 09/25/2023 1:59 PM CS T Respiratory Rate 18 12/25/2022 2:37 PM CDT Oxygen Saturation 99% 11/25/2023 11:18 AM CDT Inhaled Oxygen Concentration - - Weight 78.5 kg (173 lb) 12/10/2023 2:14 PM CDT Height 147.5 cm (4' 10.07) 11/25/2023 11:18 AM CDT Body Mass Index 36.07 11/25/2023 11:18 AM CDT Plan of Treatment Upcoming Encounters Date Type Department Care Team (Late st Contact Info) Description 01/09/2024 7:30 AM CDT Office Visit [facility] [address] [place] [address] Padmini Kim PA [address] [place] [address] 01/21/2024 2:00 PM CDT Office Visit [address] [address] Domonique [place] [id number] [place] [phone] 02/06/2024 10:00 AM CDT Phone Office Visit [address] [address] Domonique Khan PsyD, LP [address] [place] [address] 02/20/2024 10:00 AM CDT Office Visit [address] [address] Domonique Khan PsyD, LP [address] [place] [address] 03/03/2024 9:00 AM CDT Phone Office Visit [address] [address] Domonique Khan PsyD, LP [address] [place] [address] 03/17/2024 11:00 AM CDT Office Visit [address] [address] Domonique Khan PsyD, LP [address] [place] [address] 03/31/2024 1:00 PM CDT Phone Office Visit [facility] [place] [address] Domonique Khan PsyD, MARA [place], [place] [phone] Health Maintenance Due Date Last Done Comments Tetanus booster 03/04/2022 03/04/2012, 01/30/1999 Influenza for age 65+ 04/11/2024 05/23/2023 , 07/17/2022, 06/08/2021, Additional history exists BMI (ht and wt on same day) for age 18+ 11/24/2024 11/25/2023, 04/28/2023, 11/05/2022, Additional history exists Medicare Wellness for age 65+ 11/25/2024, 11/05/2022, 10/26/2021, Additional history exists Depression screening for age 12+ 11/26/2024 11/27/2023, 11/25/2023, 12/18/2022, Additional history exists Tdap Completed 03/04/2012 Pneumococcal series for age 65+ Completed 05/18/2018, 07/03/2016, 12/10/1996 DEXA/DXA scan for age 65+ Completed 2019, 12/29/2015, 12/26/2009 Hepatitis C screening for ag e 18-79 Completed 08/16/2020 Zoster (shingles) series for age 50+ Completed 08/16/2020, 05/19/2020, 10/24/2018, Additional history exists COVID-19 vaccine series Completed 09/15/19, 07/17/2022, 06/08/2021, Additional history exists Goals Goal Patient Goal Type Associated Problems Recent Progress Patient-Stated? Author STRESS-PATIENT WILL IDENTIFY STRESS/stressor s AND WORK TO REDUCE IT by using relaxation breathing, scripture reading Psalm 23, 119,139, serenity prayer when feeling anxious and cannot keep mind focused -ongoing Diet Not on track( 013 10:14 AM CDT) No Velvet Lemon WEIGHT-PATIENT? S WEIGHT Loose 20 lbs in 6 months( 07-10-13) PLAN: Pt will walk as able outside, check with insurance about senior pool and exercise as able. Weight No Nieves Welch RN Procedures Procedure Name Priority Date/Time Associated Diagnosis Comments TSH Routine 11/25/2023 12:18 PM CDT Hypothyroidism (acquired) BASIC METABOLIC PANEL Routine 11/25/2023 12:18 PM CDT Hypertension, unspecified type LIPID PANEL W REFLEX MEASURED LDL Routine 11/25/2023 12:18 PM CDT Coronary artery disease, unspecified vessel or lesion type, unspecified whether angina present, unspecified whether choctaw or transplanted heart SCAN-CT INTERPRETATION 4 12:00 AM CDT SCAN-CT INTERPRETATION 4 12:00 AM CDT SCAN-RADIOLOGY REPORT 10/20/2023 12:00 AM CDT ANTI HCV Routine 08/16/2020 2:35 PM 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 Need for hepatitis C screening test XR DXA BONE DENSITY 2 SITES AXIAL Routine 05/29/2020 11:43 AM CDT Post-menopausal from Last 3 Months or Most Recently Relevant to Health Maintenance Results * LIPID PANEL W REFLEX MEASURED LDL (11/25/2023 12:18 PM CDT) CHOLESTEROL,TOTAL 125 100 - 199 mg/dL 11/25/2023 10:15 PM CDT [facility] Comment: Cholesterol, Total Reference Ranges Desirable <200 mg/dL Borderline 200-239 mg/dL High >=240 mg/dL TRIGLYCERIDES 78 <150 mg/dL 11/25/2023 10:15 PM CDT [facility] HDL CHOLESTEROL 73 >40 mg/dL 10:15 PM CDT [facility] NON-HDL CHOLESTEROL 52 <145 mg/dl 11/25/2023 10:15 PM CDT [facility] CHOL/HDL RATIO 1.71 <4.50 11/25/2023 10:15 PM CDT [facility] LDL CHOLESTEROL 36 <=130 mg/dL 11/25/2023 10:15 PM CDT [facility] VLDL CHOLESTEROL 16 <=30 mg/dL 11/25/2023 10:15 PM CDT [facility] PROVIDER ORDERED STATUS RANDOM 11/25/2023 10:15 PM CDT [facility] Blood BLOOD SPECIMEN / Unknown Venipuncture / Unknown 11/25/2023 12:18 PM CDT 11/25/2023 12:19 PM CDT Padmini STORM CHEMISTRY Performing Organization Address [facility] Co de Phone Number [facility] [address] [place] [address], * TSH (11/25/2023 12:18 PM CDT) TSH 1.58 0.27 - 4.20 uIU/mL 11/25/2023 10:19 PM CDT [facility] Blood BLOOD SPECIMEN / Unknown Venipuncture / Unknown 11/25/2023 12:18 PM CDT 11/25/2023 12:19 PM CDT Narrative [facility] - 11/25/2023 10:19 PM CDT In Adults, TSH values between 5.00 and 10.00 uIU/ml do not necessarily indicate the presence of Hypothyroidism. Correlation with clinical findings such as presence of goiter and/or Thyroperoxidase (TPO) Antibody may be helpful. For more information please refer to TORSTEN 2004; 291: 228-238. Padmini STORM CHEMISTRY Performing Organization Address [facility] Co de Phone Number [facility] [address] [place] [address], * (ABNORMAL) BASIC METABOLIC PANEL (11/25/2023 12:18 PM CDT) SODIUM 142 136 - 145 mmol/L 11/25/2023 10:15 PM CDT [facility] POTASSIUM 3.6 3.5 - 5.1 mmol/L 11/25/2023 10:15 PM CDT [facility] CHLORIDE 100 98 - 107 mmol/L 11/25/2023 10:15 PM CDT [facility] CO2,TOTAL 31(H) 22 - 29 mmol/L 11/25/2023 10:15 PM CDT [facility] ANION GAP 11 5 - 18 11/25/2023 10:15 PM CDT [facility] GLUCOSE 135(H) 70 - 99 mg/dL 11/25/2023 10:15 PM CDT [facility] CALCIUM 9.5 8.8 - 10.2 mg/dL 11/25/2023 10:15 PM CDT [facility] BUN 11 8 - 23 mg/dL 11/25/2023 10:15 PM CDT [facility] CREATININE 0.78 0.50 - 0.90 mg/dL 11/25/2023 10:15 PM CDT [facility] BUN/CREAT RATIO 14 10 - 20 4 10:15 PM CDT [facility] eGFR 79(L) >90 mL/min/1.7 3m2 11/25/2023 10:15 PM CDT [facility] Comment:As of 2021, eG FR is calculated by the CKD-EPI creatinine equation without race adjustment. ??eGFR can be influenced by muscle mass, exercise, and diet. ??The reported eGFR is an estimation only and is only applicable if the renal function is stable. Blood BLOOD SPECIMEN / Unknown Venipuncture / Unknown 11/25/2023 12:18 PM CDT 11/25/2023 12:19 PM CDT Padmini STORM CHEMISTRY [facility] [address] [place] [address], * SCAN-CT INTERPRETATION (11/12/2023 12:00 AM CDT) Only the most recent of2 resultswithin the time period is included. Anatomical Region Laterality Modality Other Scanner OTHER * SCAN-RADIOLOGY REPORT (10/20/2023 12:00 AM CDT) Anatomical Region Laterality Modality Other Scanner OTHER * ANTI HCV (08/16/2020 2:35 PM 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) HEPATITIS C ANTIBODY Non-React maykel Non-React maykel 08/16/2020 7:30 PM 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 [facility] Comment:Antibodies to HCV no t detected; does not exclude the possibility of exposure to HCV. Blood BLOOD SPECIMEN / Unknown Venipuncture / Unknown 08/16/2020 2:35 PM 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 08/16/2020 2:39 PM 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 Wendy STORM SEND OUTS [facility] [address] [place] [address], * (ABNORMAL) XR DXA BONE DENSITY 2 SITES AXIAL (05/29/2020 11:43 AM CDT) Anatomical Region Laterality Modality Spine, HIPS, HIPL, HIPR Other Narrative 05/30/2020 1:15 PM CDT Please see scanned document for results of this study. Padmini STORM DEXA from Last 3 Months or Most Recently Relevant to Health Maintenance Advance Directives * Full Code (Latest Code Status on File) Date Activated Date Inactivated Comments 06/10/2022 6:19 AM 06/11/2022 5:28 PM Question Answer Comments Code Status Discussion: Discussed * Full Code Date Activated Date Inactivated Comments 11/19/2021 11:34 AM 11/19/2021 2:49 PM Question Answer Comments Code Status Discussion: Reviewed Preferences * Full Code Date Activated Date Inactivated Comments 06/18/2018 8:37 AM 06/18/2018 4:00 PM * Full Code Date Activated Date Inactivated Comments 03/20/2015 1:11 PM 03/20/2015 4:56 PM * Full Code Date Activated Date Inactivated Comments 03/20/2015 12:25 PM 03/20/2015 1:11 PM Care Teams 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
== END 2023-12-30 18:23 | disposition home or self-care (01) ==
LOC: AMB 01-03 05:39
PROVIDERS: PCP Physician Assistant Medical; Visit Provider Family Medicine
DX: R53.1 Weakness (principal); R25.9 Unspecified abnormal involuntary movements
CPT/HCPCS: A0998

== ENCOUNTER 2024-05-17 11:00 | Outpatient (RCR) | payer MEDICARE, SELFPAY | END 2024-09-14 23:59 | disposition home or self-care (01) | PROVIDERS: PCP Physician Assistant Medical; Visit Provider Physician Assistant Medical | DX: N39.46 Mixed incontinence (principal); R27.8 Other lack of coordination; Z51.89 Encounter for other specified aftercare | CPT/HCPCS: 97110; 97162; 97535 ==

== ENCOUNTER 2024-12-08 17:42 | Emergency (ER) | payer MEDICARE, SELFPAY ==
[2024-12-08] VITALS (19 sets, daily range): BP systolic 127–138; BP diastolic 70–97; PULSE 65–95; RESP 16; TEMP 36.6; O2SAT 95–98; BMI 30.9
--- OUTSIDE RECORDS SUMMARY | 2024-12-08 17:45 | XMS_ITS | Clinical Summary ---
Author Organization [facility] Address [address] [place] [address] Care Team Providers Care Personal Lines Account Executive Name Role Phone Padmini Kim Primary Care Provider [phone] Allergies Active Allergy Reactions Criticality Noted Date [...] High Swelling of face and throat Medications triamterene-hyd rochlorothiazid e (MAXZIDE-25) 37.5-25 MG per tablet Take 1 tablet by mouth daily. Active Levothyroxine Sodium (SYNTHROID PO) Take 88 mcg by mouth daily Active FLUoxetine HCl (PROZAC PO) Take by mouth 2 times daily Active Ferrous Sulfate (IRON SUPPLEMENT PO) Take by mouth daily (with breakfast) Active Diphenoxylate-A tropine (LOMOTIL PO) Take 1-2 tablets by mouth [...] School Help Needed Not on file 05/17 Comments No Sex and Gender Information Value Date Recorded Sex Assigned at Not on file Legal Sex Female 2:58 AM ELECTRICAL MACHINIST Gender Identity Not on file Sexual Orientation Not on file Last Filed Vital Signs Vital Sign Reading Time Taken Comments Blood Pressure 115/88 07/17/2020 4:46 PM ELECTRICAL MACHINIST Pulse 68 07/17/2020 4:46 PM ELECTRICAL MACHINIST Temperature 36.9 C (98.5 F) 07/17/2020 4:46 PM ELECTRICAL MACHINIST Respiratory Rate 16 07/17/2020 4:46 PM ELECTRICAL MACHINIST Oxygen Saturation 98% 07/17/2020 4:46 PM ELECTRICAL MACHINIST Inhaled Oxygen Concentration - - Weight 81.6 kg (180 lb) 07/17/2020 12:42 PM ELECTRICAL MACHINIST Height 149.9 cm (4' 11) 07/17/2020 12:42 PM ELECTRICAL MACHINIST Body Mass Index 36.36 07/17/2020 12:42 PM ELECTRICAL MACHINIST Plan of Treatment Not on file Insurance [employer] MEDICARE Care Teams Personal Lines Account Executive Relationship Specialty Start Date End Date Padmini Kim PCP - General 03/24/12
--- OUTSIDE RECORDS SUMMARY | 2024-12-08 17:45 | XMS_ITS | Clinical Summary ---
Author Organization [facility] Address [address] [place] [address] Care Team Providers Care Generation Technologist Name Role Phone Padmini Kim Primary Care Provider Elodia Tirado Unavailable [phone] David Whittaker MD Unavailable Jaime Joe MD Unavailable Allergies Active Allergy Reactions Criticality Noted Date [...] Comment Field 03/30/2012 Swelling of face Medications EPINEPHrine (EPIPEN) 0.3 mg/0.3 mL injection INJECT 0.3 MG INTRAMUSCULAR ONE TIME FOR 1 DOSE. 021 Active NebulizerIndica tions:Mild intermittent asthma with exacerbation (HC) Nebulizer, disposable neb kit x 4, reuseable neb kit x 1, mask x 1, filters x 1. Frequency of use: daily; Medication: albuterol Length of need: 99 months 1 Each 022 Active nystatin powder (MYCOSTATIN) powderIndicatio ns:Rash Apply 1 Strip topically to affected area(s) four times daily. 30 g 023 Active nystatin (MYCOSTATIN) creamIndication s:Rash Apply topically to affected area(s) two times daily. 30 g 2 023 Active cetirizine (ZYRTEC) 10 mg tabletIndicatio ns:Pruritic rash Take 1 Tablet (10 mg) by mouth once daily. 30 Tablet 023 Active hydroCHLOROthia zide (HCTZ) 25 mg tabletIndicatio ns:Hypertension , unspecified type Take 1 Tablet (25 mg) by mouth once daily. 90 Tablet 3 024 Active potassium chloride 10 mEq extended-releas e tablet (part/cryst)Ind ications:[place] lemia Take 1 Tablet (10 mEq) by mouth once daily with a meal. 90 Tablet 3 024 Active pregabalin (LYRICA) 150 mg capsuleIndicati ons:Fibromyalgi a Take 1 Capsule (150 mg) by mouth two times daily. 180 Capsule 3 024 Active venlafaxine (EFFEXOR) 100 mg tabletIndicatio ns:Anxiety with somatic features,Dysthy aissatou disorder Take 1 Tablet (100 mg) by mouth two times daily. 180 Tablet 3 024 Active Additional Information Patient taking differently:100 mg OralQ AM, Reported on 11/03/2024 albuterol 0.083% (2.5 mg/3 mL) neb solutionIndicat ions:Cough, unspecified type Inhale 3 mL (2.5 mg) via a nebulizer every 4 hours if needed for Cough 1st choice. 180 mL 024 Active Ferrous Gluconate 324 mg (38 mg iron) tabletIndicatio ns:S/P gastric bypass,Anemia of unknown etiology TAKE 1 TAB ONCE DAILY WITH A MEAL. EACH 324 MG FERROUS GLUCONATE TABLET CONTAINS 38MG ELEMENTAL IRON 90 Tablet 3 024 Active levothyroxine (SYNTHROID) 88 mcg tabletIndicatio ns:Hypothyroidi sm (acquired) TAKE 1 TABLET BY MOUTH ONCE DAILY. 90 Tablet 1 024 Active albuterol HFA (PRO-AIR; VENTOLIN; PROVENTIL) 90 mcg/actuation inhalerIndicati ons:Cough, unspecified type INHALE 2 PUFFS BY MOUTH 3 TIMES DAILY IF NEEDED FOR WHEEZING. 8.5 Each 1 024 Active diphenoxylate-a tropine, 2.5-0.025 mg, (LOMOTIL) 2.5-0.025 mg tabletIndicatio ns:Diarrhea, unspecified type,S/P gastric bypass TAKE 1 TABLET BY MOUTH 3 TO 4 TIMES DAILY UNTIL YOU GAIN CONTROL, THEN TAKE 1 TABLET TWICE DAILY. 90 Tablet 1 024 Active rosuvastatin (CRESTOR) 10 mg tabletIndicatio ns:Coronary artery disease, unspecified vessel or lesion type, unspecified whether angina present, unspecified whether [place] or transplanted heart Take 1 Tablet (10 mg) by mouth at bedtime. 90 Tablet 3 024 Active trimethoprim 100 mg tabletIndicatio ns:Chronic UTI Take 1 Tablet (100 mg) by mouth once daily. Start after treatment for urinary tract infection. 90 Tablet 3 024 Active triamcinolone (ARISTOCORT; KENALOG) 0.1 % creamIndication s:Pruritic rash,Dermatitis Apply topically to affected area(s) three times daily. 80 g 024 Active Syringe with Needle, Disp, (B-D 3cc Luer-Fabiola Syr 25Gx5/8) 3 mL 25 x 5/8Indications :S/P gastric bypass Use for vit b12 shot 50 Each 025 Active busPIRone 15 mg tabletIndicatio ns:Anxiety Take 1 Tablet (15 mg) by mouth two times daily. 180 Tablet 1 025 Active cyanocobalamin 1,000 mcg/mL injectionIndica tions:S/P gastric bypass INJECT 1 ML INTRAMUSCULARLY ONCE A MONTH DIRECTED 3 mL 2 025 Active cyanocobalamin (VITAMIN B12) 1,000 mcg/mL injectionIndica tions:S/P gastric bypass INJECT 1 ML INTRAMUSCULARLY ONCE A MONTH DIRECTED 3 mL 2 024 2024 Discontinued Active Problems Problem Noted Date Diagnosed Date Malignant melanoma of torso excluding breast 12/2023 Class 2 severe obesity with body mass index (BMI) of 35 to 39.9 with serious comorbidity 09/15/2023 Mild cognitive impairment 12/19/2022 Overview (12/19/2022): SLUMS 12/18/22: indicating MCI. Repeat cognitive testing in one year. S/P panniculectomy 06/10/2022 Anxiety with somatic features 12/05/2015 Irritable bowel syndrome 04/06/2015 Pannus, abdominal 10/21/2013 ANANDA 04/26/2013 AHI-6.7 05/13/2013 Fibromyalgia 12/25/2012 Sensorineural hearing loss, bilateral 11/10/2012 ACP (advance care planning) 04/21/2012 Overview (04/21/2012): Advance Care Plan Documents No Documents on File Adjustment disorder with mixed anxiety and depre ssed mood 10/30/2011 Encounter for long-term (current) use of other m edications 08/27/2011 Overview (08/27/2011): Benzodiazepine (Ativan through [facility]). No known misuse. Uses periodically. Moderate major depression 08/27/2011 GERD (gastroesophageal reflux disease) 1 Vitamin D deficiency 05/10/2010 Unspecified asthma(493.90) 11/04/2006 Unspecified essential hypertension 11/04/2006 Unspecified hypothyroidism 11/04/2006 Resolved Problems Problem Noted Date Diagnosed Date Resolved Date Severe obesity 01/15/2019 11/30/2020 Cognitive dysfunction 12/05/20152023 Gas 04/06/2015 11/30/2020 Pain medication agreement 04/12/2014 Overview (04/12/2014): Tylenol with Codeine, 1-2 tabs/day. 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; as expected 150 pills in 148 days with fills every 18-42 days Utox: planned 07/31/2017 Adjustment disorder with mix ed anxiety and depressed mood 09/28/2010 08/27/2011 Encounters Date Type Department Care Team Description 11/18/2024 Refill [facility] [address] [place] [address] Padmini Kim PA Refill Request (Cyanocobalamin) 11/04/2024 Refill [facility] [address] [place] [address] Padmini Kim PA Refill Request (Busprione hcl) 11/03/2024 10:50 AM CDT Office Visit [facility] [address] [place] [address] Padmini Kim PA Follow Up (Is forgetting to take the noon dose of effexor - Derm appt is set up - has not been doing the exercising like you wanted her to do) 11/03/2024 Travel 10/14/2024 Nurse Triage [facility] [id number] [place] [address] Domonique Khan PsyD, LP Anxiety 09/30/2024 9:00 AM KEY BED INSTALLER Office Visit [facility] [id number] [place] [address] Domonique Khan PsyD, LP Individual Therapy 09/30/2024 Travel 09/24/2024 2:40 PM KEY BED INSTALLER Office Visit [facility] [address] [place] [address] Padmini Kim PA Follow Up (Still dizzy, can't get out of bed without her cane / still scratching skin ) 09/24/2024 Travel 09/10/2024 9:00 AM KEY BED INSTALLER Office Visit [facility] [address] [place], [place] [id number] Domonique Khan PsyD, LP Individual Therapy; Trmt Plan 09/10/2024 Travel from Last 3 Months Immunizations Immunization Administration Dates Next Due AMB Influenza, IIV3 (Age >=3 years)(Flu Clinic Only) 06/13/2008 AMB Influenza, IIV4 PF (=>6 mos Flulaval,Fluzone Fluarix)(Flu Clinic Only) 05/02/2014 COVID-19 VACCINE SPIKEVAX (M ODERNA 50MCG/0.5ML) 12YO+ PFS 04/26/2024,09/15/2023 COVID-19 vaccine (Pfizer-Bio NTech 30mcg/0.3mL) 12YO+ BIVALENT PF, MDV 07/17/2022 COVID-19 vaccine (Pfizer-Bio NTech 30mcg/0.3mL) PF, MDV 06/08/2021,12/05/2020,11/14/2020 Influenza Virus, Unspecified 05/21/2005,05/23/20 04,05/25/2003 Influenza, High-dose Inactivated 05/22/2016,05/11 Influenza, IIV3 (Age 6-35 mos) 05/07/2011 Influenza, IIV3 (Age >=3 years) 04/26/20 13,05/07/2011,06/20/2010,2008,06/13/2008,06/03/2007,06/09/2006 Influenza, IIV4 05/02/2014 Influenza, Inactivated AIIV4 (Age 65+ Years) Preserv Free 05/23/2023,07/17/2022,06/08/2021 Influenza, Inactivated IIV3 (Age 65+ Years) Preserv Free 04/26/2024,05/03/2019,05/18/2018,2016 Pneumococcal Poly,23-Valent (Pneumovax) 05/18/2018,12/10/1996 Pneumococcal conj 13-Valent [...] drink = 0.6 oz pur e alcohol) PHQ-2 Answer Date Recorded PHQ-2 TOTAL SCORE 4 11/25/2023 Social Connections Answer Date Recorded Do you often feel lonely or isolated from those around you? 4 01/09/2024 Financial Resource Strain Answer Date R ecorded Difficulty of Paying Living Expenses 1 01/09/2024 Difficulty of Paying Living Expenses 2 01/09/2024 Food Insecurity Answer Date Recorded Do you worry your food will run out before you are able to buy more? 2 01/09/2024 Transportation Needs Answer Date Record ed Does lack of transportation keep you from medica l appointments? 1 01/09/2024 Does lack of transportation keep you from work, meetings or getting things that you need? 1 01/09/2024 Housing Stability Answer Date Recorded What is your housing situation today? 1 01/09/2024 Utilities Answer Date Recorded Do you have trouble paying f or utilities (for example, heat, electricity, water, phone)? 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 file Not on file Not on file Obstetrics History Para Term AB IAB SAB Ectopic Multiple Livin g Live Births 3 3 3 2 Date Outcome GA Total Labor Labor/2nd/3rd Weight Sex Type Anes PTL Oksana A1 A5 Name Clin Term Term Term Last Filed Vital Signs Vital Sign Reading Time Taken Comments Blood Pressure 144/85 11/03/2024 11:10 AM CDT Pulse 75 11/03/2024 11:10 AM CDT Temperature 36.7 C (98 F) 08/23/2024 1:13 PM KEY BED INSTALLER Respiratory Rate 18 12/25/2022 2:37 PM CDT Oxygen Saturation 97% 11/03/2024 11:10 AM CDT Inhaled Oxygen Concentration - - Weight 76.7 kg (169 lb) 11/03/2024 11:10 AM CDT Height 147.5 cm (4' 10.07) 11/25/2023 11:18 AM CDT Body Mass Index 35.23 11/25/2023 11:18 AM CDT Plan of Treatment Upcoming Encounters Date Type Department Care Team (Late st Contact Info) Description 12/09/2024 10:00 AM CDT Office Visit [address] [address] Domonique Khan PsyD, MARA [id number] [place] [address] 12/23/2024 1:00 PM CDT Office Visit [address] [address] Domonique Khan PsyD, MARA [address] [place] [address] 12/24/2024 11:30 AM CDT Office Visit [facility] [address] [place] [address] Padmini Kim PA [address] [place] [address] 01/06/2025 1:00 PM CDT Office Visit [address] [address] Domonique Khan PsyD, MARA [address] [place] [address] Health Maintenance Due Date Last Done Comments Tetanus booster 03/04/2022 03/04/2012, 01/30/1999 RSV vaccine for adults or (1 - 1-dose 75+ series) 2022 COVID-19 vaccine series (2023- season) 2024 04/26/2024, 09/15/2023, 07/17/2022, Additional history exists BMI (ht and wt on same day) for age 18+ 11/24/2024 11/25/2023, 04/28/2023, 11/05/2022, Additional history exists Medicare Wellness for age 65+ 11/25/2024, 11/05/2022, 10/26/2021, Additional history exists Depression screening for age 12+ 11/26/2024 11/27/2023, 11/25/2023, 12/18/2022, Additional history exists Tdap Completed 03/04/2012 Pneumococcal series for age 50+ Completed 05/18/2018, 07/03/2016, 12/10/1996 DEXA/DXA scan for age 65+ Completed 2019, 12/29/2015, 12/26/2009 Hepatitis C screening for ag e 18-79 Completed 08/16/2020 Zoster (shingles) series for age 50+ Completed 08/16/2020, 05/19/2020, 10/24/2018, Additional history exists Influenza Vaccine Completed 04/26/2024, , 07/17/2022, Additional history exists Goals Goal Patient Goal Type Associated Problems Recent Progress Patient-Stated? Author STRESS-PATIENT WILL IDENTIFY STRESS/stressor s AND WORK TO REDUCE IT by using relaxation breathing, scripture reading Psalm 23, 119,139, serenity prayer when feeling anxious and cannot keep mind focused -ongoing Diet Not on track( 013 10:14 AM CDT) No Velvet Lemon WEIGHT-PATIENT S WEIGHT Loose 20 lbs in 6 months( 07-10-13) PLAN: Pt will walk as able outside, check with insurance about senior pool and exercise as able. 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 Procedure Name Priority Date/Time Associated Diagnosis Comments ANTI HCV Routine 08/16/2020 2:35 PM KEY BED INSTALLER Need for hepatitis C screening test XR DXA BONE DENSITY 2 SITES AXIAL Routine 05/29/2020 11:43 AM CDT Post-menopausal from Last 3 Months or Most Recently Relevant to Health Maintenance Results * ANTI HCV (08/16/2020 2:35 PM KEY BED INSTALLER) HEPATITIS C ANTIBODY Non-React maykel Non-React maykel 08/16/2020 7:30 PM KEY BED INSTALLER [facility] Comment:Antibodies to HCV no t detected; does not exclude the possibility of exposure to HCV. Blood BLOOD SPECIMEN / Unknown Venipuncture / Unknown 08/16/2020 2:35 PM KEY BED INSTALLER 08/16/2020 2:39 PM KEY BED INSTALLER Wendy STORM SEND OUTS Final Resu lt [facility] [address] [place] [address], * (ABNORMAL) XR DXA BONE DENSITY 2 SITES AXIAL (05/29/2020 11:43 AM CDT) Anatomical Region Laterality Modality Spine, HIPS, HIPL, HIPR Other Narrative 05/30/2020 1:15 PM CDT Please see scanned document for results of this study. us Padmini STORM DEXA Final R esult from Last 3 Months or Most Recently Relevant to Health Maintenance Insurance MEDICARE PART A HB ONLY [employer] MEDICARE ADVANTAGE [facility] FAMILY INSURANCE Advance Directives * Full Code (Latest Code [...] 12:25 PM 03/20/2015 1:11 PM Care Teams Generation Technologist Relationship Specialty Start Date End Date Padmini Kim PA [address] [facility] [place] [address] PCP - General Family Practice 04/17/11 Elodia Tirado AuD [address] [place] [address] Audiology 10/28/12 David Whittaker MD [address] [place] [address] Orthopedics Surgery - Orthopedic 12/07/12 Jaime Joe MD [address] [place] [address] [place] [address] Internal Medicine 05/28/13
--- OUTSIDE RECORDS SUMMARY | 2024-12-08 17:45 | XMS_ITS ---
Author Organization [facility] Care Team Providers Care Hypo Splasher Name Role Phone Beatrice Ragsdale Unavailable Unavailable Eder Martin Unavailable Unavailable Allergies and adverse reactions Code CodeSystem Substance Reaction Severity StartDate Concern Status 605212503 SNOMED CT Sulfa Antibiotics Severe 04/28/[address] Penicillins Mild 06/06/2014 activ e Macrobid Unknown Unknown active 3443 RXNORM Diltiazem Mild 06/06/[address] Corticosteroids Severe 04/28/[address] Cephalosporins Mild 06/06/2014 ac tive 88139 RXNORM Azithromycin Moderate 04/28/[address] STERLING Inhibitors Unknown 06/06/2014 ac tive Care Team Name Role Address Phone Organization Dates Eder Martin PCP [facility] [address], [address], [address], [facility] (Office): [facility] 06/20/2014 - 06/25/2014 Beatrice Ragsdale Attending Physician [facility] [address] [facility] [address], [place], [facility] [place] (Office): : [facility] 06/20/2014 - 06/25/2014 Immunizations Immunization Status Vaccine Details Vaccine Code CodeSystem Date Notes TB 2 Step Mantoux Skin Test completed tuberculin skin test; unspecified formulation lotNumber: [id number] expiry: 10/10/2015 Mfg: [employer] Given 0.1 ml Right Forearm intradermally Step 1 of Multi-step with next step required 98 CVX created date: 06/21/2014 consent date: 06/21/2014 administer ed date: 06/21/2014 Educated by hannah on 06/21/2014 Mental Status Section Date Assessment Total Score Description 06/25/2014 BIMS 12 moderate cognit maykel impairment PHQ-9 05 mild depression 06/24/2014 BIMS 12 moderate cognit maykel impairment PHQ-9 05 mild depression Reason for Referral No Reasons for Referral Entered Social History Social History Observation Description Start Date End Date Code Code System Current Smoking Status Tobacco smoking consumption unknown 053638917 SNOMED CT Sex Assigned At Female 1945 [address]-8 [facility] Vital Signs Code Code System Vitals Name Values and Units Timing Information 89816-8 LOINC Pain Level Value=7.0 06/25/2014 26875-4 LOINC Weight Npigf=023.0 Units=Lbs 8302-2 LOINC Height Value=59.0 Units=Inches 06/24/2014 9279-1 LOINC Respiratory Rate Value=16.0 Units=/m in 06/21/2014 8462-4 LOINC Blood Pressure-Diastolic Value=82 Un its=mmHg 06/21/2014 8480-6 LOINC Blood Pressure-Systolic Xtuch=588 Un its=mmHg 06/21/2014 8310-5 [facility] Body Temperature Value=97.3 Units= F 06/21/2014 8867-4 [facility] Heart rate Value=76.0 Units=/min 06/2014 81501-7 [facility] O2 % BldC Oximetry Value=98.0 Units= % 06/21/2014
--- NOTE | 2024-12-08 18:02 | ED_ITS ---
HPI - General Adult General Chief complaint: Altered Mental Status Stated complaint: pain on R&L sides, confusion Time Seen by Provider: 12/08/24 18:02 History of Present Illness HPI narrative: Pt presents with her daughter, pt called EMS to complain that there was no protein in her house. Pt reports I called 911 against everyone's wishes. Pt complains of pain on both flanks, daughter reports pt has increased confusion and is concerned of bladder infection. Pt arrives with coca-cola bottle filled with water and wrapped with tinfoil. Pt does appear disorganized in triage. Pt daughter reports pt normally takes daily trimethoprim to prevent UTI however pharmacy has been unable to fill this for 2 months now. 79-year-old woman presenting to the emergency depart with concern of flank pain bilaterally for unspecified amount of time. Does drink a lot a water and ap pears is she is drinking water from a L and a half Bess [employer]ke bottle. Keeps it cold she says with aluminum foil. Has been decreased on a number of medications lately by the sleep doctor and primary. Lyrica dosing was decreased which daughter collected today. Apparently has acted like this before when has not been taking her Lyrica. Also decreased in July was another antidepressant. No injuries have been noted. Concerns are expressed of nutrition. Tends to diarrhea and takes regular Lomotil including today just before arrival. Was to discontinue some medication due to some enlarging common bile duct Related Data Home Medications ?Medication ?Instructions ?Recorded ?Confirmed albuterol sulfate 2.5 mg/3 mL 2.5 mg inhalation Q4H PRN 09/10/22 11/27/23 (0.083 %) solution for nebulization albuterol sulfate 90 mcg/actuation 2 puff inhalation TID PRN 09/10/22 11/27/23 aerosol inhaler buspirone 15 mg tablet 15 mg PO BID 09/10/22 11/27/23 cholestyramine (with sugar) 4 gram 1 ea PO BID 09/10/22 11/27/23 powder for susp in a packet (Questran) cyanocobalamin (vitamin B-12) 1,000 mcg IM Q30D 09/10/22 11/27/23 1,000 mcg/mL injection solution diphenoxylate-atropine 2.5 1 tab PO TID PRN 09/10/22 11/27/23 mg-0.025 mg tablet epinephrine 0.3 mg/0.3 mL 0.3 ml IM Q5-15M PRN 09/10/22 11/27/23 injection, auto-injector ferrous gluconate 324 mg (38 mg 324 mg PO DAILY 09/10/22 11/27/23 iron) tablet gabapentin 100 mg capsule 100 mg PO TID 09/10/22 11/12/23 hydrochlorothiazide 25 mg tablet 25 mg PO DAILY 09/10/22 11/27/23 levothyroxine 88 mcg tablet 88 mcg PO DAILY 09/10/22 11/27/23 potassium chloride 10 mEq 10 meq PO .DAILYWM 09/10/22 11/27/23 tablet,extended release pregabalin 150 mg capsule 150 mg PO BID 09/10/22 11/27/23 rosuvastatin 10 mg tablet 10 mg PO HS 09/10/22 11/27/23 trazodone 50 mg tablet 50 - 100 mg PO HS PRN 09/10/22 11/27/23 venlafaxine 100 mg tablet 100 mg PO BID 09/10/22 11/27/23 cetirizine 10 mg tablet (Zyrtec) 10 mg PO QDAY PRN 11/27/23 11/27/23 doxycycline hyclate 100 mg capsule 100 mg PO BID 11/27/23 11/27/23 nystatin 100,000 unit/gram topical 1 applic topical BID 11/27/23 11/27/23 cream nystatin 100,000 unit/gram topical 1 applic topical QID 11/27/23 11/27/23 powder Previous Rx's ?Medication ?Instructions ?Recorded famotidine 40 mg tablet (Pepcid) 40 mg PO DAILY #10 tabs 09/10/22 sucralfate 1 gram tablet (Carafate) 1 g PO BID #20 tabs 09/10/22 Allergies Allergy/AdvReac Type Severity Reaction Status Date / Time azithromycin Allergy Severe Swelling Verified 11/27/23 11:24 of Lip/Tongue/Throat Cephalosporins Allergy Severe Swelling Verified 11/27/23 11:24 of Lip/Tongue/Throat Corticosteroids Allergy Severe Swelling Verified 11/27/23 11:24 (Glucocorticoids) of Lip/Tongue/Throat diltiazem Allergy Severe Swelling Verified 11/27/23 11:24 of Lip/Tongue/Throat Penicillins Allergy Severe Swelling Verified 11/27/23 11:24 of Lip/Tongue/Throat prednisone Allergy Severe Swelling Verified 11/27/23 11:24 of Lip/Tongue/Throat Sulfa (Sulfonamide Allergy Severe Swelling Verified 11/27/23 11:24 Antibiotics) of Lip/Tongue/Throat nitrofurantoin (From Allergy Intermediate Rash Verified 11/27/23 11:24 Macrobid) STERLING Inhibitors Allergy Unknown Verified 11/27/23 11:24 rivaroxaban Allergy Unknown Hives Verified 11/27/23 11:24 Review of Systems Status of ROS: Reports: 6 or more systems reviewed and unremarkable except as noted in History and below [facility] Medical History Osteoarthritis of carpometacarpal (CMC) joint of right thumb ?M18.11 - Unilateral primary osteoarthritis of first carpometacarpal joint, right hand (ICD-10) Osteoarthritis of carpometacarpal (CMC) joint of left thumb ?M18.12 - Unilateral primary osteoarthritis of first carpometacarpal joint, left hand (ICD-10) Tremor ?R25.1 - Tremor, unspecified (ICD-10) Throat tightness ?R09.89 - Other specified symptoms and signs involving the circulatory and respiratory systems (ICD-10) Gastroesophageal reflux (03/14/12) ?K21.9 - Gastro-esophageal reflux disease without esophagitis (ICD-10) Chest wall pain ?R07.89 - Other chest pain (ICD-10) Cervical radiculopathy ?M54.12 - Radiculopathy, cervical region (ICD-10) Surgical History History of tonsillectomy ?Z90.89 - Acquired absence of other organs (ICD-10) History of arthroscopy of left shoulder (01/07/14) ?Z98.890 - Other specified postprocedural states (ICD-10) History of arthroscopy of right shoulder (10/02/12) ?Z98.890 - Other specified postprocedural states (ICD-10) H/O gastric bypass ?Z98.84 - Bariatric surgery status (ICD-10) 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) ?Z96.652 - Presence of left artificial knee joint (ICD-10) History of total right knee replacement (06/17/14) ?Z96.651 - Presence of right artificial knee joint (ICD-10) History of hysterectomy ?Z90.710 - Acquired absence of both cervix and uterus (ICD-10) H/O hernia repair ?Z98.890 - Other specified postprocedural states (ICD-10) ?Z87.19 - Personal history of other diseases of the digestive system (ICD-10) H/O breast biopsy ?Z98.890 - Other specified postprocedural states (ICD-10) Social History Smoking Status: Never smoker Do you use any of these nicotine containing products: None Second hand tobacco smoke exposure: No How often do you have a drink containing alcohol: never How often do you have six or more drinks on one occasion: Never AUDIT-C Alcohol total score: 0 Non-prescribed substance use: denies use service: No Exam Narrative: Exam Narrative: Pleasant. At times does not quite make sense with what she is saying. Animated. Partially edentulous. Is intermittently drinking her water. Lungs are clear. Heart in elevated rate but regular rhythm. Abdomen is soft. She is sore in bilateral mid abdomen and a little bit in the flank area bilaterally. Extremities she flinches when I go to 1 uncover them preferring to keep them covered and warm. Denies any lesions here. Const: Vital Signs, click to edit/add: Vital Signs - 24 hr 12/08/24 17:47 12/08/24 18:36 12/08/24 18:45 Temperature 98 F Pulse Rate 70 68 Pulse Rate [Pulse Oximeter] 95 Respiratory Rate 16 Blood Pressure Blood Pressure [Ri ght Upper Arm] 138/97 H Pulse Oximetry 97 96 98 Oxygen Delivery Me thod Room Air 12/08/24 18:47 12/08/24 19:00 12/08/24 19:01 Temperature Pulse Rate 71 66 66 Pulse Rate [Pulse Oximeter] Respiratory Rate Blood Pressure 127/70 132/80 Blood Pressure [Ri ght Upper Arm] Pulse Oximetry 96 98 97 Oxygen Delivery Me thod 12/08/24 19:15 12/08/24 19:17 12/08/24 19:18 Temperature Pulse Rate 66 65 66 Pulse Rate [Pulse Oximeter] Respiratory Rate Blood Pressure 133/76 Blood Pressure [Ri ght Upper Arm] Pulse Oximetry 97 96 97 Oxygen Delivery Me thod 12/08/24 19:30 12/08/24 19:47 12/08/24 19:48 Temperature Pulse Rate 65 71 73 Pulse Rate [Pulse Oximeter] Respiratory Rate Blood Pressure Blood Pressure [Ri ght Upper Arm] Pulse Oximetry 97 95 97 Oxygen Delivery Me thod 12/08/24 20:00 Temperature Pulse Rate 70 Pulse Rate [Pulse Oximeter] Respiratory Rate Blood Pressure Blood Pressure [Ri ght Upper Arm] Pulse Oximetry 96 Oxygen Delivery Me thod Documenting provider has reviewed patient's vital signs: yes Course Vital Signs Vital signs: Initial Vital Signs Temperature 98 F 12/08/24 17:47 Temperature Source Temporal Artery Scan 12/08/24 17:47 Pulse Rate 95 12/08/24 17:47 Respiratory Rate 16 12/08/24 17:47 Blood Pressure 138/97 H 12/08/24 17:47 Blood Pressure Mean 110 H 12/08/24 17:47 Blood Pressure Position Sitting 12/08/24 17:47 Pulse Oximetry 97 12/08/24 17:47 Oxygen Delivery Method Room Air 12/08/24 17:47 Vital Signs Temperature 98 F 12/08/24 17:47 Pulse Rate 95 12/08/24 17:47 Respiratory Rate 16 12/08/24 17:47 Blood Pressure 138/97 H 12/08/24 17:47 Pulse Oximetry 97 12/08/24 17:47 Oxygen Delivery Method Room Air 12/08/24 17:47 Temperature 98 F 12/08/24 17:47 Pulse Rate 67 12/08/24 20:45 Respiratory Rate 16 12/08/24 17:47 Blood Pressure 133/76 12/08/24 19:17 Pulse Oximetry 96 12/08/24 20:45 Oxygen Delivery Method Room Air 12/08/24 17:47 Medications Administered Medications: Discontinued Medications Generic Name Dose Route Start Last Admin Trade Name Freq PRN Reason Stop Dose Admin Sodium Chloride 1,000 mls @ 1,000 mls/hr 12/08/24 18:11 12/08/24 19:33 0.9 % Sodium Chloride 1000 Ml IV 12/08/24 19:10 Infused .Q1H ONE Infusion Medical Decision Making MDM Narrative Medical decision making narrative: I suspect combination medication effect and and possible malnutrition/dehydration. Will look though for signs of infection particularly in the urine given her history. Labs are reassuring though with ketones in urine indicating some degree of malnutrition/malnourishment, imbalance. Received normal saline IV here in the emergency department On reassessment is more energetic and clear headed. With continued concerns of intense intermittently mid abdominal pain we did proceed with CT imaging of abdomen and pelvis. I did independently review these images. I do not appreciate significant abnormality. Radiology over-read below INDICATION: Bilateral mid abdominal pain.. TECHNIQUE: CT abdomen and pelvis without contrast. COMPARISON: None. FINDINGS: Limited evaluation of the intra-abdominal solid organs without IV contrast. Lower chest: Mild bilateral linear opacities likely atelectasis or scarring. Liver: Normal in size and attenuation. No suspicious masses. Gallbladder and bile ducts: Cholelithiasis without CT evidence of cholecystitis. Pancreas: Unremarkable. No mass or inflammation. Spleen: Indeterminate hypodense lesion in the spleen measuring approximally 16 millimeters in diameter (10/03). Adrenal glands: Normal in size. No nodules. Kidneys: Normal in size. No suspicious masses, stones, or hydronephrosis. GI tract: No bowel obstruction. Appendix is not visualized. Status post gastric bypass changes. Vasculature: Abdominal aorta is normal in caliber. Lymph nodes: No lymphadenopathy. Peritoneum/Abdominal Wall: Unremarkable. No sign of mass or infiltration. No free air or significant free fluid. Pelvis: Prior hysterectomy. Bladder demonstrates tiny foci of gas at the nondependent portion may be iatrogenic from recent catheterization. Bones: Diffuse demineralization of the visualized bones. Otherwise unremarkable for age IMPRESSION: 1. No acute intra-abdominal process identified. 2. Foci of gas in the non dependent portion of the bladder may be iatrogenic from recent catheterization. Correlate with history. 3. Cholelithiasis without CT evidence of cholecystitis. 4. Indeterminate hypodense lesion in the spleen. Consider further evaluation with outpatient contrast-enhanced CT or MRI. 5. Prior hysterectomy and gastric bypass. Please note that all CT scans at this facility use dose modulation, iterative reconstruction, and/or weight-based dosing when appropriate to reduce radiation dose to as low as reasonably achievable. Dictated by Rose Pinto MD @ 12/08/2024 8:18:36 PM I discussed all findings with Ms. Gatica and her daughters. See patient discharge plan for further discussion When you follow-up with your primary care provider, please discuss your nutrition and hydration. I would also review your medications again both with your primary care provider in sleep doctor. I appreciate that somebody is paying attention, concerned about your medications. A urine culture will be pending here. We will call you if there is anything requiring treatment. Return for marked increase in abdominal pain, worsening confusion, associated fever. There is a very small lesion in your spleen that I would presume is benign. Would discuss this though on follow-up with your primary care provider. Medical Records Medical records reviewed: Yes I reviewed the patient's medical records Lab Data Lab results reviewed: Yes I reviewed the patient's lab results Labs: Lab Results 12/08/24 12/08/24 Range/Units 18:25 18:30 WBC 9.10 (4.50-11.00) K/uL RBC 5.48 H (4.00-5.20) m/uL Hgb 16.8 H (12.0-16.0) gm/dL Hct 47.9 (33.0-51.0) % MCV 87 (80-100) fL MCH 31 (26-34) pg MCHC 35 (32-36) gm/dL RDW Coeff of Bonnie 12.3 (11.5-15.5) % Plt Count 222 (140-440) K/uL Neut % (Auto) 67.0 (42.0-72.0) % Lymph % (Auto) 23.8 (20-44) % [place] % (Auto) 6.8 (0.0-11.0) % Eos % (Auto) 1.6 (0.0-7.0) % Baso % (Auto) 0.7 (0.0-3.0) % Neut # (Auto) 6.09 (1.7-7.0) K/uL Lymph # (Auto) 2.17 (0.90-2.90) K/uL [place] # (Auto) 0.60 (0.00-0.90) K/UL Eos # (Auto) 0.15 (0.00-0.50) K/uL Baso # (Auto) 0.06 (0.00-0.30) K/uL Abs Immat Gran (auto) 0.01 (0.00-0.30) K/uL Imm/Tot Granulo (auto) 0.1 % Sodium 136 (135-149) mmol/L Potassium 3.3 L (3.6-5.1) mmol/L Chloride 98 (96-114) mmol/L Carbon Dioxide 22 (20-32) mmol/L Anion Gap 16 H (7-15) mEq/L BUN 22 (7-30) mg/dL Creatinine 0.9 (0.5-1.5) mg/dL Estimated Creat Clear 51.62 Estimated GFR 66 ml/min Glucose 164 H (60-115) mg/dL Calcium 10.2 (8.4-10.6) mg/dL Total Bilirubin 1.5 (0.1-1.5) mg/dL Direct Bilirubin 0.5 (0.0-0.5) mg/dL AST 36 H (12-35) U/L ALT 30 (4-35) U/L Alkaline Phosphatase 73 (40-150) U/L C-Reactive Protein < 0.5 L (0.5-1.0) mg/dL Total Protein 8.2 (6.0-8.3) g/dL Albumin 5.1 H (3.3-5.0) g/dL Urine Color Yellow (Yellow) Urine Appearance Clear (Clear) Urine pH 5.5 (5.0-8.5) Ur Specific [place] 1.025 (1.000-1.030) Urine Protein Negative (Negative) Urine Glucose (UA) Negative (Negative) Urine Ketones 2+ A (Negative) Urine Blood Negative (Negative) Urine Nitrite Negative (Negative) Urine Bilirubin 1+ A (Negative) Urine Urobilinogen 1.0 (0.2-1.0) Ur Leukocyte Esterase Trace A (Negative) Urine RBC 0-2 (0-2) Urine WBC 2-5 (0-5) Ur Squamous Epith Cells Few (None-Few) Urine Bacteria Few A (None) Discharge Plan Discharge Clinical Impression: Altered mental status, Abdominal pain, Cholelithiasis Patient Disposition: Home w/ Parent or Adult Condition: Improved Additional Instructions: When you follow-up with your primary care provider, please discuss your nutrition and hydration. I would also review your medications again both with your primary care provider in sleep doctor. I appreciate that somebody is paying attention, concerned about your medications. A urine culture will be pending here. We will call you if there is anything requiring treatment. Return for marked increase in abdominal pain, worsening confusion, associated fever. There is a very small lesion in your spleen that I would presume is benign. Would discuss this though on follow-up with your primary care provider. Prescriptions: No Action cetirizine [Zyrtec] 10 mg tablet 10 mg PO QDAY PRN doxycycline hyclate 100 mg capsule 100 mg PO BID nystatin 100,000 unit/gram cream 1 applic topical BID nystatin 100,000 unit/gram powder 1 applic topical QID albuterol sulfate 2.5 mg /3 mL (0.083 %) solution for nebulization 2.5 mg inhalation Q4H PRN trazodone 50 mg tablet 50 - 100 mg PO HS PRN diphenoxylate-atropine 2.5-0.025 mg tablet 1 tab PO TID PRN potassium chloride 10 mEq tablet extended release 10 meq PO .DAILYWM venlafaxine 100 mg tablet 100 mg PO BID levothyroxine 88 mcg tablet 88 mcg PO DAILY hydrochlorothiazide 25 mg tablet 25 mg PO DAILY albuterol sulfate 90 mcg/actuation HFA aerosol inhaler 2 puff INHALATION TID PRN rosuvastatin 10 mg tablet 10 mg PO HS pregabalin 150 mg capsule 150 mg PO BID sucralfate [Carafate] 1 gram tablet 1 g PO BID Qty: 20 0RF famotidine [Pepcid] 40 mg tablet 40 mg PO DAILY Qty: 10 2RF buspirone 15 mg tablet 15 mg PO BID cholestyramine (with sugar) [Questran] 4 gram powder in packet 1 ea PO BID cyanocobalamin (vitamin B-12) 1,000 mcg/mL solution 1,000 mcg IM Q30D epinephrine 0.3 mg/0.3 mL auto-injector 0.3 ml IM Q5-15M PRN Rx Instructions: do not exceed 3 doses per episode ferrous gluconate 324 mg (38 mg iron) tablet 324 mg PO DAILY gabapentin 100 mg capsule 100 mg PO TID Follow Up/Referrals: Padmini Kim PA-C [Primary Care Provider] - Stand Alone Forms: [facility] Info Instructions
[2024-12-08] MEDS: 0.9 % SODIUM CHLORIDE 1000 ml 1,000 ML IV (18:27)
[2024-12-08 18:28] LABS: Appearance Urine Clear (Clear); Bilirubin Urine 1+ (Negative); Blood Urine Negative (Negative); Color Urine Yellow (Yellow); Glucose Urine Negative (Negative); Ketones Urine 2+ (Negative); Leukocyte Esterase Urine Trace (Negative); Nitrite Urine Negative (Negative); Protein Urine Negative (Negative); Specific Gravity Urine 1.025 (1.000-1.030); pH Urine 5.5 (5.0-8.5)
[2024-12-08 18:36] LABS: Basophils Absolute Auto 0.06 K/uL (0.00-0.30); Basophils Percent Auto 0.7 % (0.0-3.0); Eosinophils Absolute Auto 0.15 K/uL (0.00-0.50); Eosinophils Percent Auto 1.6 % (0.0-7.0); Hematocrit 47.9 % (33.0-51.0); Hemoglobin* 16.8 gm/dL (12.0-16.0); Immature Granulocytes Abs Auto 0.01 K/uL (0.00-0.30); Immature Granulocytes Pct Auto 0.1 %; Lymphocytes Absolute Auto 2.17 K/uL (0.90-2.90); Lymphocytes Percent Auto 23.8 % (20-44); Mean Corpuscular HGB Conc 35 gm/dL (32-36); Mean Corpuscular Hemoglobin 31 pg (26-34); Mean Corpuscular Volume 87 fL (80-100); Monocytes Percent Auto 6.8 % (0.0-11.0); Neutrophils Absolute Auto 6.09 K/uL (1.7-7.0); Platelet Count* 222 K/uL (140-440); RDW Coefficient of Variation % 12.3 % (11.5-15.5); Red Blood Count 5.48 m/uL (4.00-5.20)
[2024-12-08 18:40] LABS: Slide Review Reflex No
[2024-12-08 18:47] LABS: Bacteria Urine Few; RBC Urine 0-2 (0-2); Squamous Epithelial Cell Urine Few (None-Few)
[2024-12-08 18:51] LABS: Albumin* 5.1 g/dL (3.3-5.0); Chloride* 98 mmol/L (96-114); Potassium* 3.3 mmol/L (3.6-5.1); Sodium* 136 mmol/L (135-149)
[2024-12-08 18:53] LABS: Blood Urea Nitrogen* 22 mg/dL (7-30); Creatinine* 0.9 mg/dL (0.5-1.5); Est. Creatinine Clearance* 51.62; Estimated Glomerular Filt Rate 66 ml/min
--- OUTSIDE RECORDS SUMMARY | 2024-12-08 18:53 | XMS_ITS | Clinical Summary ---
Author Organization [employer] [facility] Address [address] [place] [address] Care Team Providers Care Hammerer Tab Name Role Phone Padmini Kim Primary Care Provider Elodia Tirado Unavailable [phone] David Whittaker MD Unavailable [phone] Jaime Joe MD Unavailable [phone] Allergies Active Allergy Reactions Criticality Noted Date [...] type, unspecified whether angina present, unspecified whether [place] or transplanted heart Take 1 Tablet (10 [...] Overview (04/12/2014): Tylenol with Codeine, 1-2 tabs/day. 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: 07/31/2017; as expected 150 pills in 148 days with fills every 18-42 days Utox: planned 07/31/2017 Adjustment disorder with mix ed anxiety and depressed mood 09/28/2010 08/27/2011 Encounters Date Type Department Care Team Description 11/18/2024 Refill [facility] [address] [place] [address] Padmini Kim PA Refill Request (Cyanocobalamin) 11/04/2024 Refill [facility] [address] [place] [address] Padmini Kim PA Refill Request (Busprione hcl) 11/03/2024 10:50 AM CDT Office Visit [facility] [address] [place] [address] Padmini Kim PA Follow Up (Is forgetting to take the noon dose of effexor - Derm appt is set up - has not been doing the exercising like you wanted her to do) 11/03/2024 Travel 10/14/2024 Nurse Triage [facility] [id number] [place] [address] Domonique hKan PsyD, LP Anxiety 09/30/2024 9:00 AM CHLORINE CELLS OPERATOR Office Visit [facility] [address] [place] [address] Domonique Khan PsyD, LP Individual Therapy 09/30/2024 Travel 09/24/2024 2:40 PM CHLORINE CELLS OPERATOR Office Visit [facility] [address] [place] [address] Padmini Kim PA Follow Up (Still dizzy, can't get out of bed without her cane / still scratching skin ) 09/24/2024 Travel 09/10/2024 9:00 AM CHLORINE CELLS OPERATOR Office Visit [facility] [address] [place], [place] [id number] Domonique Khan PsyD, LP Individual Therapy; Trmt [...] on file Legal Sex Female 12:50 PM CHLORINE CELLS OPERATOR Gender Identity Not on file Sexual Orientation [...] 36.7 C (98 F) 08/23/2024 1:13 PM CHLORINE CELLS OPERATOR Respiratory Rate 18 12/25/2022 2:37 PM CDT [...] Description 12/09/2024 10:00 AM CDT Office Visit [address] [address] Domonique Khan PsyD, MARA [id number] [place] [address] 12/23/2024 1:00 PM CDT Office Visit [address] [address] Domonique Khan PsyD, MARA [address] [place] [address] 12/24/2024 11:30 AM CDT Office Visit [facility] [address] [place] [address] Padmini Kim PA [address] [place] [address] 01/06/2025 1:00 PM CDT Office Visit [address] [address] Domonique Khan PsyD, MARA [address] [place] [address] Health Maintenance Due Date Last Done Comments [...] exercise as able. 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 Procedure Name Priority Date/Time Associated Diagnosis Comments ANTI HCV Routine 08/16/2020 2:35 PM CHLORINE CELLS OPERATOR Need for hepatitis C screening test XR DXA BONE DENSITY 2 SITES AXIAL Routine 05/29/2020 11:43 AM CDT Post-menopausal from Last 3 Months or Most Recently Relevant to Health Maintenance Results * ANTI HCV (08/16/2020 2:35 PM CHLORINE CELLS OPERATOR) HEPATITIS C ANTIBODY Non-React maykel Non-React maykel 08/16/2020 7:30 PM CHLORINE CELLS OPERATOR [facility] Comment:Antibodies to HCV no t detected; does not exclude the possibility of exposure to HCV. Blood BLOOD SPECIMEN / Unknown Venipuncture / Unknown 08/16/2020 2:35 PM CHLORINE CELLS OPERATOR 08/16/2020 2:39 PM CHLORINE CELLS OPERATOR Wendy STORM SEND OUTS Final Resu lt [facility] [address] [place] [address], * (ABNORMAL) XR DXA BONE DENSITY 2 [...] A HB ONLY [employer] ADVANTAGE MR FORMERLY [facility]ILY [facility]URANCE Advance Directives * Full Code [...] 12:25 PM 03/20/2015 1:11 PM Care Teams Hammerer Tab Relationship Specialty Start Date End Date Padmini Kim PA [address] [facility] [place] [address] PCP - General Family Practice 04/17/11 Elodia Tirado AuD [address] [place] [address] Audiology 10/28/12 David Whittaker MD [address] [place] [address] Orthopedics Surgery - Orthopedic 12/07/12 Jaime Joe MD [address] [place] [address] [place] [address] Internal Medicine 05/28/13
--- OUTSIDE RECORDS SUMMARY | 2024-12-08 18:53 | XMS_ITS | Clinical Summary ---
Author Organization [facility] Address [address] [place] [address] Care Team Providers Care Rn Discharge Name Role Phone Padmini Kim Primary Care Provider [phone] Allergies Active Allergy Reactions Criticality Noted Date [...] on file Legal Sex Female 2:58 AM DAM OPERATOR Gender Identity Not on file Sexual Orientation Not on file Last Filed Vital Signs Vital Sign Reading Time Taken Comments Blood Pressure 115/88 07/17/2020 4:46 PM DAM OPERATOR Pulse 68 07/17/2020 4:46 PM DAM OPERATOR Temperature 36.9 C (98.5 F) 07/17/2020 4:46 PM DAM OPERATOR Respiratory Rate 16 07/17/2020 4:46 PM DAM OPERATOR Oxygen Saturation 98% 07/17/2020 4:46 PM DAM OPERATOR Inhaled Oxygen Concentration - - Weight 81.6 kg (180 lb) 07/17/2020 12:42 PM DAM OPERATOR Height 149.9 cm (4' 11) 07/17/2020 12:42 PM DAM OPERATOR Body Mass Index 36.36 07/17/2020 12:42 PM DAM OPERATOR Plan of Treatment Not on file Insurance [employer] MED[employer]ARE Care Teams Rn Discharge Relationship Specialty Start Date End Date Padmini Kim PCP - General 03/24/12
--- OUTSIDE RECORDS SUMMARY | 2024-12-08 18:53 | XMS_ITS ---
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 Role Phone Beatrice Ragsdale Unavailable Unavailable Eder Martin Unavailable Unavailable Allergies and adverse reactions Code CodeSystem Substance Reaction Severity StartDate Concern Status 744393511 SNOMED CT Sulfa Antibiotics Severe 04/28/[address] Penicillins Mild 06/06/2014 activ e Macrobid Unknown Unknown active 3443 RXNORM Diltiazem Mild 06/06/[address] Corticosteroids Severe 04/28/[address] Cephalosporins Mild 06/06/2014 ac tive 46682 RXNORM Azithromycin Moderate 04/28/[address] [place] Inhibitors Unknown 06/06/2014 ac tive Care Team Name Role Address Phone Organization Dates Eder Martin PCP [facility] [address], [address], [place], [address], [facility] (Office): [facility] 06/20/2014 - 06/25/2014 Beatrice Ragsdale Attending Physician [facility] [address], [place], [facility] [place] (Office): : [facility] 06/20/2014 - 06/25/2014 Immunizations Immunization Status Vaccine Details Vaccine Code CodeSystem Date Notes TB 2 Step Mantoux Skin Test completed tuberculin skin test; unspecified formulation lotNumber: [id number] expiry: 10/10/2015 Mfg: [employer] Given 0.1 [...] Current Smoking Status Tobacco smoking consumption unknown 902301938 SNOMED CT Sex Assigned At Female 1945 65170-5 [facility] Vital Signs Code Code System Vitals Name Values and Units Timing Information 16300-8 LOINC Pain Level Value=7.0 06/25/2014 02879-8 LOINC Weight Ergzz=882.0 Units=Lbs 8302-2 LOINC Height Value=59.0 Units=Inches 06/24/2014 9279-1 LOINC Respiratory Rate Value=16.0 Units=/m in 06/21/2014 8462-4 LOINC Blood Pressure-Diastolic Value=82 Un its=mmHg 06/21/2014 8480-6 LOINC Blood Pressure-Systolic Shhzj=361 Un its=mmHg 06/21/2014 8310-5 [facility] Body Temperature Value=97.3 Units= F 06/21/2014 8867-4 [facility] Heart rate Value=76.0 Units=/min 06/2014 30303-2 [facility] O2 % BldC Oximetry Value=98.0 Units= % 06/21/2014
[2024-12-08 18:54] LABS: Alanine Aminotransferase* 30 U/L (4-35); Alkaline Phosphatase* 73 U/L (40-150); Anion Gap 16 mEq/L (7-15); Aspartate Amino Transferase* 36 U/L (12-35); Bilirubin Direct* 0.5 mg/dL (0.0-0.5); Bilirubin Total* 1.5 mg/dL (0.1-1.5); Calcium* 10.2 mg/dL (8.4-10.6); Carbon Dioxide* 22 mmol/L (20-32); Glucose* 164 mg/dL (60-115); Total Protein* 8.2 g/dL (6.0-8.3)
[2024-12-08 19:00] LABS: C Reactive Protein* < 0.5 mg/dL (0.5-1.0)
--- NOTE | 2024-12-08 19:24 | CRLHL7_ITS ---
For Patients: As a result of the Century Cures Act, medical imaging exams and procedure reports are released immediately into your electronic medical record. You may view this report before your referring provider. If you have questions, please contact your health care provider. INDICATION: Bilateral mid abdominal pain.. TECHNIQUE: CT abdomen and pelvis without contrast. COMPARISON: None. FINDINGS: Limited evaluation of the intra-abdominal solid organs without IV contrast. Lower chest: Mild bilateral linear opacities likely atelectasis or scarring. Liver: Normal in size and attenuation. No suspicious masses. Gallbladder and bile ducts: Cholelithiasis without CT evidence of cholecystitis. Pancreas: Unremarkable. No mass or inflammation. Spleen: Indeterminate hypodense lesion in the spleen measuring approximally 16 millimeters in diameter (10/03). Adrenal glands: Normal in size. No nodules. Kidneys: Normal in size. No suspicious masses, stones, or hydronephrosis. GI tract: No bowel obstruction. Appendix is not visualized. Status post gastric bypass changes. Vasculature: Abdominal aorta is normal in caliber. Lymph nodes: No lymphadenopathy. Peritoneum/Abdominal Wall: Unremarkable. No sign of mass or infiltration. No free air or significant free fluid. Pelvis: Prior hysterectomy. Bladder demonstrates tiny foci of gas at the nondependent portion may be iatrogenic from recent catheterization. Bones: Diffuse demineralization of the visualized bones. Otherwise unremarkable for age IMPRESSION: 1. No acute intra-abdominal process identified. 2. Foci of gas in the non dependent portion of the bladder may be iatrogenic from recent catheterization. Correlate with history. 3. Cholelithiasis without CT evidence of cholecystitis. 4. Indeterminate hypodense lesion in the spleen. Consider further evaluation with outpatient contrast-enhanced CT or MRI. 5. Prior hysterectomy and gastric bypass. Please note that all CT scans at this facility use dose modulation, iterative reconstruction, and/or weight-based dosing when appropriate to reduce radiation dose to as low as reasonably achievable. Dictated by Rose Pinto MD @ 12/08/2024 8:18:36 PM (Electronically Signed)
== END 2024-12-08 21:12 | disposition home or self-care (01) ==
PROVIDERS: Emergency Provider Family Medicine; PCP Physician Assistant Medical
DX: R41.82 Altered mental status, unspecified (principal); R10.9 Unspecified abdominal pain; K80.20 Calculus of gallbladder without cholecystitis without obstruction; D73.89 Other diseases of spleen
CPT/HCPCS: 36415; 74176; 80048; 80076; 81001; 85025; 86140; 87086; 96360; 99284; J7030

== ENCOUNTER 2025-03-08 08:28 | Outpatient (CLI) | payer MEDICARE, SELFPAY | END 2025-03-08 08:29 | disposition home or self-care (01) | LOC: INJ CL 08:30 | PROVIDERS: PCP Physician Assistant Medical; Visit Provider Family Medicine | DX: M54.16 Radiculopathy, lumbar region (principal); M51.369 Other intervertebral disc degeneration, lumbar region without mention of lumbar back pain or lower extremity pain | CPT/HCPCS: 62323; J0702; Q9966 ==

== ENCOUNTER 2025-05-26 16:42 | Outpatient (CLI) | payer MEDICARE, SELFPAY | END 2025-05-26 16:43 | disposition home or self-care (01) | LOC: AMB 05-28 04:51 | PROVIDERS: PCP Physician Assistant Medical; Visit Provider Internal Medicine | DX: R41.82 Altered mental status, unspecified (principal); R06.09 Other forms of dyspnea | CPT/HCPCS: A0425; A0427 ==

== ENCOUNTER 2025-05-26 17:08 | Inpatient (IN) | payer MEDICARE, SELFPAY ==
--- OUTSIDE RECORDS SUMMARY | 2023-02-04 04:31 | XMS_ITS | Continuity of Care Document ---
Author Organization [facility] Address [address] [address] [place] [address] Phone Care Team Providers Care Rn Med Surg Name Role Phone Vladimir MÉNDEZFelisha Unavailable Unavailable Allergies, Adverse Reactions, Alerts Substance Reaction Status Criticality dicloxacillin HivesHives Active No Information ampicillin Angioedema Active No Information AMOXICILLIN TRIHYDRATE Choose by mistake Active No Information POTASSIUM CLAVULANATE Choose by mistake Active N o Information PROPOXYPHENE HCL Angioedema Active No Informat ion heparin Rash Active No Information levofloxacin HivesHives Active No Information PENICILLIN Angioedema Active No Information azithromycin HivesHives Active No Information STERLING Inhibitors Active No Informatio n Sulfa (Sulfonamide Antibiotics) Active No Information prednisone Edema, generalized Active No Inform ation nitrofurantoin Rash Active No Informatio n diltiazem Active No Information Cephalosporins Active No Informatio n azithromycin Swelling Active No Information Penicillins Rash Active No Information WARNIN allergy(ies) could not be collected because the type is not supported. Please contact the source practice for further details. Medications Medication Instructions Dosage Effective Dates (start - stop) Status Comments Lyrica 150 mg capsule take 1 capsule by oral route 2 times every day 150 MG - Active Klor-Con 10 mEq tablet,extended release take 1 Tablet by oral route every day with food 10 MEQ - Active fluconazole 150 mg tablet take 1 tablet 2 times per week (Friday/Friday) - Active buspirone 10 mg tablet take 1 tablet by oral route 2 times every day 10 MG - Active trazodone 50 mg tablet take 1 Tablet by Oral route every day 1 Tablet - Active aspirin 81 mg tablet,delayed release take 1 tablet by oral route every day 81 MG - Active Crestor 10 mg tablet take 1 tablet by oral route every day 10 MG - Active tizanidine 2 mg capsule take 2 Capsule by mouth every 6 hours for muscle spasms as needed - Active Fosamax 70 mg tablet take 1 tablet by oral route every week in the morning, at least 30 min before first food, beverage, or medication of day 70 MG - Active TRIAMTERENE-HYDROCHL OROTHIAZID (unknown strength) take 1 capsule by oral route every day Not Available - Active acetaminophen 500 mg tablet take 2 tablet by oral route every 8 hours as needed 1000 MG - Active acetaminophen 300 mg-codeine 30 mg tablet take 1-2 tablets 3 times daily as needed - Active albuterol sulfate HFA 90 mcg/actuation aerosol inhaler inhale 2 puff by inhalation route 4 times every day as needed 2 puff - Active Vitamin B-12 1,000 mcg/mL injection solution inject 1 milliliter by subcutaneous route every month - Active Lomotil 2.5 mg-0.025 mg tablet take as needed - Active ferrous gluconate 324 mg (38 mg iron) tablet take 1 tablet daily - Active levothyroxine 88 mcg tablet take 1 tablet by oral route every day 88 MCG - Active multivitamin tablet take 1 tablet by oral route every day 1 tablet - Active triamcinolone acetonide 0.1 % topical cream apply by topical route 2 times every day a thin layer to the affected area(s) Not Available - Active EFFEXOR XR (unknown strength) take 1 capsule by oral route 2 times every day with food Not Available - Active Procedures Procedure Date Ugi Endo; W/insrt Guide Wire Offic/outpt E&m Estab Mod-mn 2 22 Ugi Endo; W/endo Ultrasound Ex 20 Telephone E&M III 21-30 Min ROSAMARIA Sigmoidoscopy Flex; W/bx 1/mx 9 Ugi Endo; W/insrt Guide Wire Level Iv-surg Path Gross/micro 19 Ugi Endo; W/insrt Guide Wire Ugi Endo; W/insrt Guide Wire Ugi Endo; W/insrt Guide Wire Sigmoidoscopy Flex; W/bx 1/mx 5 Offic/outpt E&m Estab Mod-mn 2 15 Ugi Endo; W/insrt Guide Wire Ugi Endo; W/bx 1/mx Level Iv-surg Path Gross/micro 14 Ugi Endo; W/insrt Guide Wire Colonoscopy Flex; Dx (apr) 14 Offic/outpt E&m Estab Mod-hi 2 14 Ugi Endo; W/insrt Guide Wire Offic/outpt E&m Estab Mod-mn 2 12 [id number] Offic/outpt E&m Estab Mod-mn 2 10 [id number] Ugi Endo; W/insrt Guide Wire Ugi Endo; W/insrt Guide Wire Ugi Endo; W/bx 1/mx Level Iv-surg Path Gross/micro 08 Offic/outpt E&m Estab Mod-mn 2 08 Advance Directives Directive Yes / No Effective Date File Name No Information Encounters Encounter Description Practice Location Reason(s) For Visit Diagnoses Date Provider Providers Copied on Encounter [facility] GELA STORM [address] [address], [place], [id number], [place] tel:[phone] [facility] No Information 3 Vladimir DEV Felisha. [address] [facility] [address], [place], [id number], [place]. [phone] Referring Provider: Chuy De [place]za, [address], [address]. [phone] [facility], [address] [address], [place], [id number], [place] tel:[phone] [facility] GI Symptoms or Concerns (chief complaint) Esophageal dysphagiaHistor y of gastric bypass 3 Heath Vera. [address], [id number], [place]. [phone] Referring Provider: Referral Self, USE FOR SELF REFERRALS. [facility], [address] [address], [place], [id number], [place] tel:[phone] [facility] No Information 3 Suraj Deleon. [address] [facility] [address], [place], [id number], [place]. tel:[phone] [facility], [address] [address], [place], [id number], [place] tel:[phone] [facility] Dysphagia, unspecified 3 Heath Vera. [address] [facility] [address], [id number], [place]. tel:[phone] Offic/outpt E&m Estab Mod-hi 2 [facility], [address] [address], [place], [id number], [place] tel:[phone] [facility] GI Symptoms or Concerns (chief complaint) Diarrhea, unspecifiedRigh t sided abdominal painDysphagia, unspecified 2 Heath Vera. [address] [facility] [address], [place], [address], [place]. tel:[phone] Referring Provider: Referral Self, USE FOR SELF REFERRALS. [facility], [address] [address], [place], [id number], [place] tel:[phone] [facility] No Information 2 Suraj Deleon. [address] [facility], [facility] [address], [place], [id number], [place]. tel:[phone] [facility], [address] [address], [place], [id number], [place] tel:[phone] [facility] No Information 0 Rik Brooks. [address] [facility] [address], [place], [id number], [place]. tel:[phone] Referring Provider: Todd Chavarria, [address], [address]. tel:[phone] [facility], [address] [address], [place], [id number], [place] tel:[phone] [facility] Dilated bile duct 0 Heath Vera. [address] [facility] [address], [place], [address], [place]. tel:[phone] Telephone E&M III 21-30 Min ROSAMARIA [facility], [address] [address], [place], [id number], [place] tel:[phone] [facility] GI Symptoms or Concerns (chief complaint) Dilated bile ductRight sided abdominal pain 0 Heath Vera. [address] [facility] [address], [place], [address], [place]. tel:[phone] Referring Provider: Referral Self, USE FOR SELF REFERRALS. [facility], [address] [address], [place], [id number], [place] tel:[phone] [facility] No Information 0 Heath Vera. [address] [facility] [address], [place], [address], [place]. tel:[phone] [facility], [address] [address], [place], [id number], [place] tel:[phone] [facility] No Information 0 Belem Baez. [address] [facility], [address], [place], [address], [place]. tel: [phone] [facility], [address] [address], [place], [id number], [place] tel:[phone] [facility] Change in bowel movement 9 Heath Vera. [address] [facility], [facility] [address], [place], [address], [place]. tel:[phone] [facility], [address] [address], [place], [id number], [place] tel:[phone] [facility] Dysphagia, unspecifiedBari atric surgery statusHemorrhoi ds, internalDiarrhe a, unspecifiedHemo rrhage of anus and rectumDysphagia , unspecifiedOthe r hemorrhoids 9 Heath Vera. [address] [facility], [address], [id number], [place]. tel:[phone] Referring Provider: Referral Self, USE FOR SELF REFERRALS. [facility], [address] [address], [place], [id number], [place] tel:[phone] [facility] Diarrhea, unspecified typeDysphagia, unspecified 9 Heath Vera. [address] [facility], [facility] [address], [place], [address], [place]. tel:[phone] [facility], [address] [address], [place], [id number], [place] tel:[phone] [facility] Dysphagia, unspecified 8 Heath Vera. [address] [facility], [facility] [address], [place], [id number], [place]. tel:[phone] [facility], [address] [address], [place], [id number], [place] tel:[phone] [facility] Dysphagia, unspecifiedOthe r specified postprocedural statesBariatric surgery statusDysphagia , unspecifiedBari atric surgery status 8 Heath Vera. [address] [facility], [address] [address], [place], [place], [id number], [place]. tel:[phone] Referring Provider: Referral Self, USE FOR SELF REFERRALS. [facility], [address] [address], [place], [id number], [place] tel:[phone] [facility] Dysphagia, unspecified type 8 Heath Vera. [address] [facility], [address], [id number], [place]. tel:[phone] [facility], [address] [address], [place], [id number], [place] tel:[phone] [facility] Dysphagia, unspecifiedHist ory of gastric surgeryDysphagi a, unspecified Oct- 8 Heath Vera. [address] [facility], [address], [id number], [place]. tel:[phone] Referring Provider: Referral Self, USE FOR SELF REFERRALS. [facility], [address] [address], [place], [id number], [place] tel:[phone] [facility] Dysphagia, unspecified type 7 Stanley Sheehan. [address] [facility] [address], [id number], [place]. tel:[phone] [facility], [address] [address], [place], [address], [place] tel:[phone] [facility] No Information 5 Heath Vera. [address] [facility], [address] [place] [address], [place], [id number], [place]. tel:[phone] Referring Provider: Chuy De [place]zua, [address] [place] [address], [address]. [phone] Offic/outpt E&m Estab Mod-hi 2 [facility], [address] [address], [place], [address], [place] tel:[phone] [facility] GI Symptoms or Concerns (chief complaint) Dysphagia, UnspecifiedDiar rheaDietary Surveil/adult school counselor Hypertension, Unspecified 5 Heath Vera. [address] [place] [address], [id number], [place]. tel:[phone] Referring Provider: Referral Self, USE FOR SELF REFERRALS. [facility], [address] [address], [place], [address], [place] tel:[phone] [facility] Diarrhea 5 Heath Vera. [address] [place] [address], [id number], [place]. tel:[phone] Referring Provider: Padmini STORM, [address] [place] [address], [address]. tel:[phone] [facility], [address] [address], [place], [id number], [place] tel:[phone] [facility] Post-surgical bowel anastomosis status 4 Heath Vera. [address] [place] [address], [id number], [place]. tel:[phone] Referring Provider: Referral Self, USE FOR SELF REFERRALS. [facility], [address] [address], [place], [address], [place] tel:[phone] [facility] Chest Pain Nos 4 Heath Vera. [address] [place] [address], [id number], [place]. tel:[phone] Referring Provider: Padmini STORM, [address] [place] [address], [address]. tel:[phone] [facility], [address] [address], [place], [address], [place] tel:[phone] [facility] No Information 4 Heath Vera. [address] [place] [address], [id number], [place]. tel:[phone] Referring Provider: Padmini STORM, [address] [place] [address], [place], [address]. tel:[phone] Offic/outpt E&m Estab Mod-hi 2 [facility], [address] [address], [place], [place], [id number], [place] tel:[phone] [facility] Dysphagia, UnspecifiedDysp hagia, UnspecifiedDiar rheaColon Cancer Screening 4 Heath Vera. [address] [place] [address], [id number], [place]. tel:[phone] Referring Provider: Referral Self, USE FOR SELF REFERRALS. [facility], [address] [address], [place], [place], [address], [place] tel:[phone] [facility] No Information 2 Heath Vera. [address] [place] [address], [id number], [place]. tel:[phone] Referring Provider: Padmini STORM, [address] [place] [address], [address]. tel:[phone] Offic/outpt E&m Estab Mod-hi 2 [facility], [address] [address], [place], [place], [id number], [place] tel:[phone] [facility] esoph. pain / food sticking (chief complaint) Dysphagia, UnspecifiedChes t Pain Nos 2 Heath Vera. [address] [place] [address], [id number], [place]. tel:[phone] Referring Provider: Nieves Encarnacion [facility], [address], [address]. tel:[phone] Offic/outpt E&m Estab Mod-hi 2 [facility], [address] [address], [place], [id number], [place] tel:[phone] [facility] Abdominal pain (chief complaint) Small Bowell ObstructionAbd Pain Generalized 0 No Information Referring Provider: Geraldo Cline, [address] [facility], [place], [address]. tel:[phone] [facility], [address] [address], [place], [id number], [place] tel:[phone] [facility] No Information 9 Heath Vera. [facility], [id number], [place]. tel:[phone] Referring Provider: Geraldo Cline, [address] [facility], [place], [address]. tel:[phone] [facility] [place], [address] [address], [facility], [id number], [place] tel:[phone] [facility] Esoph Stricture/schat zki RingPost-op Aftercare NecEsoph Stricture/schat zki RingPost-op Aftercare Nec 8 Heath Vera. [address] [place] [address], [id number], [place]. tel:[phone] Referring Provider: Rosa Stiles, [address] [place], [address]. tel:[phone] Offic/outpt E&m Estab Mod-hi 2 [facility], [address] [address], [place], [address], [place] tel:[phone] [facility] No Information 8 Heath Vera. [facility], [address], [id number], [place]. tel:[phone] Referring Provider: hCuy [place], [address] [place] [address], [address]. tel:[phone] Family History Family Member Type Diagnosis Age At Onset Sister Problem (finding) Alive and well Daughter Problem (finding) Hodgkin's disease Sister Problem (finding) asthma Daughter Problem (finding) Son Problem (finding) Alive and well Brother Problem (finding) Asthma Mother Problem (finding) Mother Problem (finding) gland Father Problem (finding) Daughter Problem (finding) malignant neop lasm of breast in first degree relative Mother Problem (finding) Cancer, thyroid Brother Problem (finding) Father Problem (finding) alcoholism Daughter Problem (finding) Daughter Problem (finding) Asthma Immunizations Vaccine Date Status Comments SARS-COV-2 (COVID-19) vaccin e, mRNA, spike protein, LNP, bivalent booster, preservative free, 30 mcg/0.3 mL dose, lizbeth-sucrose formulation administered Note: [facility] bi-d irectional interface ; Source: Other Registry influenza, seasonal vaccine, quadrivalent, adjuvanted, 0.5mL dose, preservative free administered Note: [facility] bi-di rectional interface ; Source: Other Registry influenza, seasonal vaccine, quadrivalent, adjuvanted, 0.5mL dose, preservative free administered Note: [facility] bi-di rectional interface ; Source: Other Registry influenza, seasonal vaccine, quadrivalent, adjuvanted, .5mL dose, preservative free administered Note: [facility] bi-di rectional interface ; Source: Other Registry SARS-COV-2 (COVID-19) vaccin e, mRNA, spike protein, LNP, preservative free, 30 mcg/0.3mL dose administered Note: [facility] bi-direct ional interface ; Source: Other Registry SARS-COV-2 (COVID-19) vaccin e, mRNA, spike protein, LNP, preservative free, 30 mcg/0.3mL dose administered Note: [facility] bi-direct ional interface ; Source: Other Registry SARS-COV-2 (COVID-19) vaccin e, mRNA, spike protein, LNP, preservative free, 30 mcg/0.3mL dose administered Note: [facility] bi-direct ional interface ; Source: Other Registry zoster vaccine recombinant administered N ote: [facility] bi-directional interface ; Source: Other Registry zoster vaccine recombinant administered N ote: [facility] bi-directional interface ; Source: Other Registry Seasonal trivalent influenza vaccine, adjuvanted, preservative free administered Note: [facility] bi-direct ional interface ; Source: Other Registry zoster vaccine recombinant administered N ote: [facility] bi-directional interface ; Source: Other Registry Pneumovax administered Note: [facility] bi-d irectional interface ; Source: Other Registry Seasonal trivalent influenza vaccine, adjuvanted, preservative free administered Note: [facility] bi-direct ional interface ; Source: Other Registry Seasonal trivalent influenza vaccine, adjuvanted, preservative free administered Note: [facility] bi-direct ional interface ; Source: Other Registry Prevnar administered Note: [facility] bi-d irectional interface ; Source: Other Registry influenza, high dose seasona l, preservative-free administered Note: [facility] bi-direct ional interface ; Source: Other Registry influenza, high dose seasona l, preservative-free administered Note: [facility] bi-direct ional interface ; Source: Other Registry Afluria Qd administered Note: [facility] bi-directional interface ; Source: Other Registry Afluria Qd administered Note: M [facility] bi-directional interface ; Source: Other Registry Influenza virus vaccine, injectable, quadrivalent, split virus, preservative free, 3 years or older Fluarix, Flulaval or Fluzone Quad administered Note: Invalid docume nted admin date was NULL/NULL/2013. ; Source: Source Unspecified Pneumo (2 yrs or older)(PPV) administered Note: pt unsure of year.Invalid documented admin date was NULL/NULL/2012. ; Source: Source Unspecified zoster vaccine, live administered Note: [facility] bi-directional interface ; Source: Other Registry tetanus toxoid, reduced diphtheria toxoid, and acellular pertussis vaccine, adsorbed administered Note: [facility] bi-direct ional interface ; Source: Other Registry Influenza, seasonal, injectable, preservative free administered Note: [facility] bi-directional interface ; Source: Other Registry Influenza, seasonal, injectable administe red Note: [facility] bi- directional interface ; Source: Other Registry Influenza, seasonal, injectable administe red Note: [facility] bi- directional interface ; Source: Other Registry Influenza, seasonal, injectable administe red Note: [facility] bi- directional interface ; Source: Other Registry Influenza, seasonal, injectable administe red Note: [facility] bi- directional interface ; Source: Other Registry influenza virus vaccine, unspecified formulation administered Note: [facility] bi-di rectional interface ; Source: Other Registry influenza virus vaccine, unspecified formulation administered Note: [facility] bi-di rectional interface ; Source: Other Registry influenza virus vaccine, unspecified formulation administered Note: [facility] bi-di rectional interface ; Source: Other Registry tetanus and diphtheria toxoi ds, adsorbed, preservative free, for adult use (2 Lf of tetanus toxoid and 2 Lf of diphtheria toxoid) administered Note: [facility] bi-direct ional interface ; Source: Other Registry Pneumovax administered Note: [facility] bi-d irectional interface ; Source: Other Registry Payers Payer name Insurance type Covered libertarian ID Authoriza tion(s) [employer] [place] [id number] Social History Type Description Quantity Date Captured Comments Sex Female Smoking Status No Information Chief Complaint And Reason For Visit No Information Reason For Referral Reason For Referral No Information Plan Of Treatment Date Type Action Status Goal Lifestyle education regardin g diet completed Referral Ordered: referred to [facility] on [address] [facility] ? right-sided musculoskeletal pain ordered Referral Ordered: Hepatic Function Panel Appointment date/timeframe: 07/06/2020 ordered Referral Ordered: Xray Abdomen; Limited (AP View Only) (KUB) Appointment date/timeframe: -today ordered Referral Ordered: Video Swallow With Speech Pathologist/Occupational Therapist Appointment date/timeframe: 11/05/2018 ordered Referral Ordered: EGD With Dilation Appointment date/timeframe: -today ordered History Of Present Illness Encounter Date Complaint History Of Prese nt Illness GI Symptoms or Concerns GI Symptoms or Concerns Ms. Freeman lima returns to clinic with a couple of different issues. One is following. She does have a little bit of trouble swallowing and specially notices this with dry foods. She would like to have an upper endoscopy with dilation when she has her next colonoscopy. She also was having problems with diarrhea. She started cholestyramine and this is working great. She only takes 1 dose a day instead of 2 because 2 was causing constipation. The last issue is the right upper abdominal pain. This has been a chronic problem. She notes that much of the time when she is sitting and eating. She is not sure what other factors influence it. It feels as if she was punched or has something pressing in the right upper abdomen. It is better if she rubs it. She did have a dilated common bile duct. This was evaluated by endoscopic ultrasound and was found to be unremarkable. Perhaps, narcotics were causing the dilation. She had recent liver tests, which I reviewed that are normal. GI Symptoms or Concerns Ms. Freeman lima is having a televisit today to discuss a couple of different issues. One is that she has had some right-sided pain. She describes it differently. Sometimes she says it is near her right hip and other times it is underneath the right rib cage. It seems to be worse when she is active. It does come and go. It is not associated with eating. She is always constipated. She also had a CT scan for these symptoms and it showed that her biliary tree was dilated. She had an MRI. She read me the report and it also showed a dilated biliary tree. There was no reason for this found. I do not believe she has had any recent liver blood tests. GI Symptoms or Concerns Ms. Freeman lima presents with two different issues. The first is problem swallowing. She periodically needs to have her esophagus dilated. She is again having a lot of problems with solids more than liquids. The more concerning issue for her is that since January she has been having lots of diarrhea. About the time her symptoms developed, she took antibiotics before a dental procedure. Her symptoms are about the same or may be worse since January. Some days, she has one soft stool. Other times, she has explosions. She also has lot of problems with liquid incontinence. Lomotil helps a little bit. She has been taking perhaps four a day. She has the urge to go the bathroom after eating. The foods that worked best for her include cheese, animal crackers, and sa ltines. She is having six to eight stools day. Her weight is down a couple of pounds. She has left lower abdominal pain after having a bowel movement. She does not really have bloating and cramping. In the last few days, she has had Functional Status Date Functional Assessmen t No Information Instructions Date Instruction Additional Infor mony High Fiber Diet Related to Hemor rhoids, internal Hemorrhoids Related to Hemor rhoids, internal Lifestyle education regarding di et Related to Dietary surveillance and counseling Flexible Sigmoidoscopy Related t o Diarrhea Assessments Type Assessment Date No Information Patient Care Teams Name Effective Dates (start - stop) Status Members No Information
--- OUTSIDE RECORDS SUMMARY | 2023-02-04 04:31 | XMS_ITS | Continuity of Care Document ---
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 Name Role Phone Vladimir MÉNDEZFelisha Unavailable Unavailable [...] Endo; W/insrt Guide Wire Offic/outpt E&m Estab Mod-il 2 22 Ugi Endo; W/endo Ultrasound Ex 20 Telephone E&M III 21-30 Min ROSAMARIA Sigmoidoscopy Flex; W/bx 1/mx 9 Ugi Endo; W/insrt Guide Wire Level Iv-surg Path Gross/micro 19 Ugi Endo; W/insrt Guide Wire Ugi Endo; W/insrt Guide Wire Ugi Endo; W/insrt Guide Wire Sigmoidoscopy Flex; W/bx 1/mx 5 Offic/outpt E&m Estab Mod-il 2 15 Ugi Endo; W/insrt Guide Wire Ugi Endo; W/bx 1/mx Level Iv-surg Path Gross/micro 14 Ugi Endo; W/insrt Guide Wire Colonoscopy Flex; Dx (apr) 14 Offic/outpt E&m Estab Mod-hi 2 14 Ugi Endo; W/insrt Guide Wire Offic/outpt E&m Estab Mod-il 2 12 [id number] Offic/outpt E&m Estab Mod-il 2 10 [id number] Ugi Endo; W/insrt Guide Wire Ugi Endo; W/insrt Guide Wire Ugi Endo; W/bx 1/mx Level Iv-surg Path Gross/micro 08 Offic/outpt E&m Estab Mod-il 2 08 Advance Directives Directive Yes / No Effective Date File Name No Information Encounters Encounter Description Practice Location Reason(s) For Visit Diagnoses Date Provider Providers Copied on Encounter [facility] [address]A [address] [address], [place], [id number], [place] tel:[phone] [facility] No Information 3 Vladimir DEV Felisha. [address] [facility], [facility] [address], [place], [id number], [place]. [phone] Referring Provider: Chuy De Souza, [address], [address]. [phone] [facility], [address] [address], [place], [id number], [place] tel:[phone] [facility] GI Symptoms or Concerns (chief complaint) Esophageal dysphagiaHistor y of gastric bypass 3 Heath Vera. [address], [id number], [place]. [phone] Referring Provider: Referral Self, USE FOR SELF REFERRALS. [facility], [address] [address], [place], [id number], [place] tel:[phone] [facility] No Information 3 Suraj Deleon. [address] [facility], [facility] [address], [place], [id number], [place]. tel:[phone] [facility], [address] [address], [place], [id number], [place] tel:[phone] [facility] Dysphagia, unspecified 3 Heath Vera. [address] [facility], [facility] [address], [place], [id number], [place]. tel:[phone] Offic/outpt E&m Estab Mod-hi 2 [facility], [address] [address], [place], [id number], [place] tel:[phone] [facility] GI Symptoms or Concerns (chief complaint) Diarrhea, unspecifiedRigh t sided abdominal painDysphagia, unspecified 2 Heath Vera. [address] [facility], [facility] [address], [place], [address], [place]. tel:[phone] Referring Provider: Referral Self, USE FOR SELF REFERRALS. [facility], [address] [address], [place], [id number], [place] tel:[phone] [facility] No Information 2 Suraj Deleon. [address] [facility], [facility] [address], [place], [place], [id number], [place]. tel:[phone] [facility], [address] [address], [place], [id number], [place] tel:[phone] [facility] No Information 0 Rik Brooks. [address] [facility], [facility] [address], [place], [id number], [place]. tel:[phone] Referring Provider: Todd Chavarria, [address], [address]. tel:[phone] [facility], [address] [address], [place], [id number], [place] tel:[phone] [facility] Dilated bile duct 0 Heath Vera. [address] [facility], [facility] [address], [place], [id number], [place]. tel:[phone] Telephone E&M III 21-30 Min ROSAMARIA [facility], [address] [address], [place], [id number], [place] tel:[phone] [facility] GI Symptoms or Concerns (chief complaint) Dilated bile ductRight sided abdominal pain 0 Heath Vera. [address] [facility], [facility] [address], [place], [address], [place]. tel:[phone] Referring Provider: Referral Self, USE FOR SELF REFERRALS. [facility], [address] [address], [place], [id number], [place] tel:[phone] [facility] No Information 0 Heath Vera. [address] [facility], [facility] [address], [place], [id number], [place]. tel:[phone] [facility], [address] [address], [place], [id number], [place] tel:[phone] [facility] No Information 0 Belem Baez. [address] [facility], [address], [place], [place], [address], [place]. tel: [phone] [facility], [address] [address], [place], [id number], [place] tel:[phone] [facility] Change in bowel movement 9 Heath Vera. [address] [facility], [facility] [address], [place], [place], [address], [place]. tel:[phone] [facility], [address] [address], [place], [id number], [place] tel:[phone] [facility] Dysphagia, unspecifiedBari atric surgery statusHemorrhoi ds, internalDiarrhe a, unspecifiedHemo rrhage of anus and rectumDysphagia , unspecifiedOthe r hemorrhoids 9 Heath Vera. [address] [facility], [address], [id number], [place]. tel:[phone] Referring Provider: Referral Self, USE FOR SELF REFERRALS. [facility], [address] [address], [place], [id number], [place] tel:[phone] [facility] Diarrhea, unspecified typeDysphagia, unspecified 9 Heath Vera. [address] [facility], [facility] [address], [place], [address], [place]. tel:[phone] [facility], [address] [address], [place], [id number], [place] tel:[phone] [facility] Dysphagia, unspecified 8 Heath Vera. [address] [facility], [facility] [address], [place], [address], [place]. tel:[phone] [facility], [address] [address], [place], [id number], [place] tel:[phone] [facility] Dysphagia, unspecifiedOthe r specified postprocedural statesBariatric surgery statusDysphagia , unspecifiedBari atric surgery status 8 Heath Vera. [address] [facility], [place] [address], [place], [place], [address], [place]. tel:[phone] Referring Provider: Referral Self, USE FOR SELF REFERRALS. [facility], [address] [address], [place], [id number], [place] tel:[phone] [facility] Dysphagia, unspecified type 8 Heath Vera. [address] [facility], [address], [id number], [place]. tel:[phone] [facility], [address] [address], [place], [id number], [place] tel:[phone] [facility] Dysphagia, unspecifiedHist ory of gastric surgeryDysphagi a, unspecified Oct- 8 Heath Vera. [address] [facility], [address], [id number], [place]. tel:[phone] Referring Provider: Referral Self, USE FOR SELF REFERRALS. [facility], [address] [address], [place], [id number], [place] tel:[phone] [facility] Dysphagia, unspecified type 7 Stanley Sheehan. [address] [facility], [facility] [address], [place], [address], [place]. tel:[phone] [facility], [address] [address], [place], [address], [place] tel:[phone] [facility] No Information 5 Heath Vera. [address] [facility], [place] [address], [place], [place], [address], [place]. tel:[phone] Referring Provider: Chuy De Souza, [address] [place] [address], [address]. [phone] Offic/outpt E&m Estab Mod-hi 2 [facility], [address] [address], [place], [id number], [place] tel:[phone] [facility] GI Symptoms or Concerns (chief complaint) Dysphagia, UnspecifiedDiar rheaDietary Surveil/elder counselor Hypertension, Unspecified 5 Heath Vera. [address] [place] [address], [id number], [place]. tel:[phone] Referring Provider: Referral Self, USE FOR SELF REFERRALS. [facility], [address] [address], [place], [id number], [place] tel:[phone] [facility] Diarrhea 5 Heath Vera. [address] [place] [address], [id number], [place]. tel:[phone] Referring Provider: Padmini STORM, [address] [place] [address], [address]. tel:[phone] [facility], [address] [address], [place], [address], [place] tel:[phone] [facility] Post-surgical bowel anastomosis status 4 Heath Vera. [address] [place] [address], [id number], [place]. tel:[phone] Referring Provider: Referral Self, USE FOR SELF REFERRALS. [facility] [place], [address] [address], [place], [address], [place] tel:[phone] [facility] Chest Pain Nos 4 Heath Vera. [address] [place] [address], [id number], [place]. tel:[phone] Referring Provider: Padmini STORM, [address] [place] [address], [address]. tel:[phone] [facility], [address] [address], [place], [id number], [place] tel:[phone] [facility] No Information 4 Heath Vera. [address] [place] [address], [id number], [place]. tel:[phone] Referring Provider: Padmini STORM, [address] [place] [address], [place], [address]. tel:[phone] Offic/outpt E&m Estab Mod-hi 2 [facility], [address] [address], [place], [place], [id number], [place] tel:[phone] [facility] Dysphagia, UnspecifiedDysp hagia, UnspecifiedDiar rheaColon Cancer Screening 4 Heath Vera. [address] [place] [address], [id number], [place]. tel:[phone] Referring Provider: Referral Self, USE FOR SELF REFERRALS. [facility], [address] [address], [place], [place], [id number], [place] tel:[phone] [facility] No Information 2 Heath Vera. [address] [place] [address], [id number], [place]. tel:[phone] Referring Provider: Padmini STORM, [address] [place] [address], [address]. tel:[phone] Offic/outpt E&m Estab Mod-hi 2 [facility], [address] [address], [place], [place], [id number], [place] tel:[phone] [facility] esoph. pain / food sticking (chief complaint) Dysphagia, UnspecifiedChes t Pain Nos 2 Heath Vera. [address] [place] [address], [id number], [place]. tel:[phone] Referring Provider: Nieves Encarnacion [facility], [address], [address]. tel:[phone] Offic/outpt E&m Estab Mod-hi 2 [facility], [address] [address], [place], [id number], [place] tel:[phone] [facility] Abdominal pain (chief complaint) Small Bowell ObstructionAbd Pain Generalized 0 No Information Referring Provider: Geraldo Cline, [address] [facility], [place], [address]. tel:[phone] [facility], [address] [address], [place], [id number], [place] tel:[phone] [facility] No Information 9 Heath Vera. Formerly named [facility], [id number], [place]. tel:[phone] Referring Provider: Geraldo Cline, [address] [facility], [place], [address]. tel:[phone] [facility] [place], [address] [address], [facility] [place], [id number], [place] tel:[phone] [facility] Esoph Stricture/schat zki RingPost-op Aftercare NecEsoph Stricture/schat zki RingPost-op Aftercare Nec 8 Heath Vera. [address] [place] [address], [id number], [place]. tel:[phone] Referring Provider: Rosa Stiles, [address] [place], [address]. tel:[phone] Offic/outpt E&m Estab Mod-hi 2 [facility], [address] [address], [place], [id number], [place] tel:[phone] [facility] No Information 8 Heath Vera. Formerly named [facility] [facility], [address], [id number], [place]. tel:[phone] Referring Provider: Chuy [place], [address] [place] [address], [address]. tel:[phone] Family History Family Member Type Diagnosis Age [...] booster, preservative free, 30 mcg/0.3 mL dose, lizebth-sucrose formulation administered Note: [facility] bi-d irectional interface [...] Registry Payers Payer name Insurance type Covered constitution party ID Authoriza tion(s) [employer] [place] [id number] Social History Type Description Quantity Date Captured Comments Sex Female Smoking Status No Information Chief Complaint And Reason For Visit No Information Reason For Referral Reason For Referral No Information Plan Of Treatment Date Type Action Status Goal Lifestyle education regardin g diet completed Referral Ordered: referred to [facility] on [address] [place] [facility] ? right-sided musculoskeletal pain ordered [...]
[2025-05-26] VITALS (21 sets, daily range): BP systolic 132–169; BP diastolic 85–97; PULSE 73–100; RESP 12–30; TEMP 36.6–36.9; O2SAT 95–99
--- OUTSIDE RECORDS SUMMARY | 2025-05-26 17:11 | XMS_ITS | Clinical Summary ---
Author Organization [facility] Address [address] [place] [id number] Care Team Providers Care Manager Sports Name Role Phone Padmini Kim Primary Care Provider [phone] Allergies Active Allergy Reactions Criticality Noted Date [...] on file Legal Sex Female 2:58 AM [employer] Gender Identity Not on file Sexual Orientation Not on file Last Filed Vital Signs Vital Sign Reading Time Taken Comments Blood Pressure 115/88 07/17/2020 4:46 PM [employer] Pulse 68 07/17/2020 4:46 PM [employer] Temperature 36.9 C (98.5 F) 07/17/2020 4:46 PM [employer] Respiratory Rate 16 07/17/2020 4:46 PM [employer] Oxygen Saturation 98% 07/17/2020 4:46 PM [employer] Inhaled Oxygen Concentration - - Weight 81.6 kg (180 lb) 07/17/2020 12:42 PM [employer] Height 149.9 cm (4' 11) 07/17/2020 12:42 PM [employer] Body Mass Index 36.36 07/17/2020 12:42 PM [employer] Plan of Treatment Not on file Insurance [employer] MED[employer] Care Teams Manager Sports Relationship Specialty Start Date End Date Padmini Kim PCP - General 03/24/12
--- OUTSIDE RECORDS SUMMARY | 2025-05-26 17:11 | XMS_ITS | Clinical Summary ---
Author Organization [facility] [employer] [facility] Address [facility] [place] [address] Care Team Providers Care Window/Distribution Clerk Name Role Phone Padmini Kim Primary Care Provider Elodia Tirado Unavailable [phone] David Whittaker MD Unavailable Jaime Joe [...] In Comment Field 03/30/2012 Swelling of face Venom-Wasp Hives Medium 01/06/2025 Patient has epi pen to use if needed. No impact on airway. Swelling/welts. Medications EPINEPHrine (EPIPEN) 0.3 mg/0.3 mL injection INJECT 0.3 MG INTRAMUSCULAR ONE TIME FOR 1 DOSE. 03/01/20 21 Active NebulizerIndica tions:Mild intermittent asthma with exacerbation (HC) Nebulizer, disposable neb kit x 4, reuseable neb kit x 1, mask x 1, filters x 1. Frequency of use: daily; Medication: albuterol Length of need: 99 months 1 Each 07/17/20 22 Active nystatin (MYCOSTATIN) creamIndication s:Rash Apply topically to affected area(s) two times daily. 30 g 2 12/12/19 23 Active albuterol HFA (PRO-AIR; VENTOLIN; PROVENTIL) 90 mcg/actuation inhalerIndicati ons:Cough, unspecified type INHALE 2 PUFFS BY MOUTH 3 TIMES DAILY IF NEEDED FOR WHEEZING. 8.5 Each 1 06/16/20 24 Active triamcinolone (ARISTOCORT; KENALOG) 0.1 % creamIndication s:Pruritic rash,Dermatitis Apply topically to affected area(s) three times daily. 80 g 08/10/20 24 Active Syringe with Needle, Disp, (B-D 3cc Luer-Fabiola Syr 25Gx5/8) 3 mL 25 x 5/8Indications :S/P gastric bypass Use for vit b12 shot 50 Each 08/23/19 25 Active busPIRone 15 mg tabletIndicatio ns:Anxiety Take 1 Tablet (15 mg) by mouth two times daily. 180 Tablet 3 12/25/19 25 Active ferrous gluconate 324 mg (38 mg iron) tabletIndicatio ns:S/P gastric bypass,Anemia of unknown etiology TAKE 1 TAB ONCE DAILY WITH A MEAL. EACH 324 MG FERROUS GLUCONATE TABLET CONTAINS 38MG ELEMENTAL IRON 90 Tablet 3 12/25/19 25 Active hydroCHLOROthia zide 25 mg tabletIndicatio ns:Hypertension , unspecified type Take 1 Tablet (25 mg) by mouth once daily. 90 Tablet 3 12/25/19 25 Active levothyroxine 88 mcg tabletIndicatio ns:Hypothyroidi sm (acquired) Take 1 Tablet (88 mcg) by mouth once daily. 90 Tablet 3 12/25/19 25 Active potassium chloride 10 mEq extended-releas e tablet (part/cryst)Ind ications:[place]oka lemia Take 1 Tablet (10 mEq) by mouth once daily with a meal. 90 Tablet 3 12/25/19 25 Active pregabalin 75 mg capsuleIndicati ons:Fibromyalgi a Take 1 Capsule (75 mg) by mouth two times daily. 180 Capsule 1 12/25/19 25 Active trimethoprim 100 mg tabletIndicatio ns:Chronic UTI Take 1 Tablet (100 mg) by mouth once daily. Start after treatment for urinary tract infection. 90 Tablet 3 12/25/19 25 Active rosuvastatin 10 mg tabletIndicatio ns:Coronary artery disease, unspecified vessel or lesion type, unspecified whether angina present, unspecified whether iliamna or transplanted heart Take 1 Tablet (10 mg) by mouth at bedtime. 90 Tablet 3 12/25/19 25 Active acetaminophen 500 mg tablet Take 500 mg by mouth every 4 hours if needed for Pain. Take 1-2 pills by mouth as needed for pain Active venlafaxine 100 mg tabletIndicatio ns:Anxiety with somatic features,Dysthy aissatou disorder Take 1 Tablet (100 mg) by mouth once daily in the morning. 90 Tablet 2 02/06/20 25 Active cyanocobalamin (VITAMIN B12) 1,000 mcg/mL injectionIndica tions:S/P gastric bypass INJECT 1 ML INTRAMUSCULARLY ONCE A MONTH DIRECTED 3 mL 2 02/19/20 25 Active albuterol 0.083% (2.5 mg/3 mL) neb solutionIndicat ions:Cough, unspecified type Inhale 3 mL (2.5 mg) via a nebulizer every 4 hours if needed for Cough 1st choice. 180 mL 04/05/20 25 Active budesonide-form oteroL (SYMBICORT,BREY NA) 80-4.5 mcg/actuation (80-4.5 mcg each actuation) inhalerIndicati ons:Moderate persistent reactive airway disease without complication (HC) Inhale 2 puffs twice daily 3 Each 05/13/20 25 Active diphenoxylate-a tropine (2.5-0.025 mg) (LOMOTIL) 2.5-0.025 mg tabletIndicatio ns:Diarrhea, unspecified type,S/P gastric bypass TAKE 1 TABLET BY MOUTH 3 TO 4 TIMES DAILY UNTIL YOU GAIN CONTROL, THEN TAKE 1 TABLET TWICE DAILY. 20 Tablet 05/26/20 25 Active diphenoxylate-a tropine (2.5-0.025 mg) 2.5-0.025 mg tabletIndicatio ns:Diarrhea, unspecified type,S/P gastric bypass TAKE 1 TABLET BY MOUTH 3 TO 4 TIMES DAILY UNTIL YOU GAIN CONTROL, THEN TAKE 1 TABLET TWICE DAILY. 20 Tablet 02/04/20 25 025 Discontin ued(Reord er (E-cancel not sent)) budesonide-form oteroL (SYMBICORT,BREY NA) 80-4.5 mcg/actuation (80-4.5 mcg each actuation) inhalerIndicati ons:Moderate persistent reactive airway disease without complication (HC) Inhale 2 puffs twice daily 1 Each 3 04/19/20 25 025 Discontin ued(*Avai lability/ Formulary change/Co st of medicatio n) Active Problems Problem Noted Date Diagnosed Date Malignant melanoma of torso excluding breast 12/2023 Class 2 severe obesity with body mass index (BMI) of 35 to 39.9 with serious comorbidity 09/15/2023 Mild cognitive impairment 12/19/2022 Overview (12/19/2022): SLUMS 12/18/22: indicating MCI. Repeat cognitive testing in one year. Irritable bowel syndrome 04/06/2015 ANANDA 04/26/2013 AHI-6.7 05/13/2013 Fibromyalgia 12/25/2012 Sensorineural hearing loss, bilateral 11/10/2012 ACP (advance care planning) 04/21/2012 Overview (04/21/2012): Advance Care Plan Documents No Documents on File Adjustment disorder with mixed anxiety and depre ssed mood 10/30/2011 Moderate major depression 08/27/2011 GERD (gastroesophageal reflux disease) 1 Vitamin D deficiency 05/10/2010 Unspecified asthma(493.90) 11/04/2006 Unspecified essential hypertension 11/04/2006 Unspecified hypothyroidism 11/04/2006 Resolved Problems Problem Noted Date Diagnosed Date Resolved Date S/P panniculectomy 06/10/2022 Severe obesity 01/15/2019 11/30/2020 Anxiety with somatic features 12/05/2015 12/24/2024 Cognitive dysfunction 12/05/20152023 Gas 04/06/2015 11/30/2020 Pain medication agreement 04/12/2014 Overview (05/20/2025): Tylenol with Codeine, 1-2 tabs/day. 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 No known misuse. Uses periodically. Adjustment disorder with mix ed anxiety and depressed mood 09/28/2010 08/27/2011 Encounters Date Type Department Care Team Description 05/12/2025 Refill [facility] [address] [place] [address] Padmini Kim PA Refill Request (Budesonide-formoter ol) 05/07/2025 Nurse Triage [facility] [address] [place] [address] Padmini Kim PA Cough 05/03/2025 1:00 PM CDT Phone Office Visit [facility] [address] [place] [address] Domonique Khan PsyD, LP Phone Visit 05/02/2025 7:45 AM CDT Office Visit [facility] [address] [place] [address] Gay Camara PA URI (started as a cough x6 days ago, worsening. ) 05/02/2025 Travel 04/19/2025 1:00 PM CDT Phone Office Visit [facility] [address] [place] [address] Domonique Khan PsyD, MARA Phone Visit 04/19/2025 11:15 AM CDT Ancillary Procedure [facility] [address] [place] [address] 04/19/2025 10:30 AM CDT Office Visit [facility] [address] [place] [address] Padmini Kim PA Breathing Problem (Using her neb more often, gets winded very easily) 04/19/2025 Travel 04/05/2025 1:00 PM CDT Phone Office Visit [facility] [id number] [place] [address] Domonique Khan PsyD, MARA Phone Visit; Trmt Plan 04/05/2025 10:20 AM CDT Office Visit [facility] [address] [address] Nadia Donohue MD Derm Problem 04/05/2025 Travel 03/27/2025 Nurse Triage [facility] [address] [place] [address] Padmini Kim PA Medication Management 03/17/2025 12:30 PM CDT Office Visit [facility] [address] [place] [address] Khari Ritchie AuD Hearing Aid (Consultation) 03/17/2025 Travel 03/16/2025 Patient Outreach [facility] Care Management - Care Management Navigation/[facility] [address] [place] [id number] Julisa Riley, PIG IRON LOADER [facility] Navigation 03/11/2025 10:30 AM CDT Office Visit [facility] [address] [place] [address] Padmini Kim PA Follow Up (Had back injection, does feel alittle improvement ); Ear Problem (Found mole on L ear); Serious Illness Conversation 03/11/2025 10:00 AM CDT Ancillary Procedure [facility] [address] [place] [address] 03/11/2025 Patient Outreach [facility] [address] [place] [address] Padmini Kim PA Serious Illness Conversation (RN follow up) 03/11/2025 Travel 03/09/2025 1:00 PM CDT Phone Office Visit [facility] [address] [place] [address] Domonique Khan PsyD, LP Phone Visit 03/08/2025 9:00 AM CDT Office Visit [facility] at [address] [phone] Vik Belcher MD Procedure (L4-5 ILESI) 03/08/2025 Travel 02/24/2025 2:30 PM CDT Office Visit [facility] [address] [place] [address] Khari Ritchie, Ivis Hearing Problem 02/24/2025 Travel 02/23/2025 11:30 AM CDT Home Care Visit [facility] [address] [place] [id number] Travis Lee, ELECTRONIC NEWS GATHERING EDITOR ELECTRONIC NEWS GATHERING EDITOR - OASIS DISCHARGE from Last 3 Months Immunizations Immunization Administration Dates Next Due AMB Influenza, IIV3 (Age >=3 years)(Flu Clinic Only) 06/13/2008 AMB Influenza, IIV4 PF (=>6 mos Flulaval,Fluzone Fluarix)(Flu Clinic Only) 05/02/2014 COVID-19 VACCINE SPIKEVAX (M ODERNA 50MCG/0.5ML) 12YO+ PFS 04/26/2024,09/15/2023 COVID-19 vaccine (15MinutesNOW-Bio NTech 30mcg/0.3mL) 12YO+ BIVALENT PF, MDV 07/17/2022 COVID-19 vaccine (15MinutesNOW-[employer] NTech 30mcg/0.3mL) PF, MDV 06/08/2021,12/05/2020,11/14/2020 Influenza Virus, Unspecified 05/21/2005,05/23/20 04,05/25/2003 Influenza, High-dose Inactivated 05/22/2016,05/11 Influenza, IIV3 (Age 6-35 mos) 05/07/2011 Influenza, IIV3 (Age >=3 years) 04/26/20 13,05/07/2011,06/20/2010,05/02,06/13/2008,06/03/2007,06/09/2006 Influenza, IIV4 05/02/2014 Influenza, Inactivated AIIV4 (Age 65+ Years) Preserv Free 05/23/2023,07/17/2022,06/08/2021 Influenza, Inactivated IIV3 (Age 65+ Years) Preserv Free 04/26/2024,05/03/2019,05/18/2018,04/28 Pneumococcal Poly,23-Valent (Pneumovax) 05/18/2018,12/10/1996 Pneumococcal conj 13-Valent (Prevnar 13) 07/03/2016 RSV, Recombinant ADJ Reconst ituted (Arexvy 120MCG/0.5mL) 07/07/2024 Td (Age >=7 Years) 01/30/1999 Tdap 03/04/2012 [...] PHQ-2 Answer Date Recorded PHQ-2 TOTAL SCORE 1 12/24/2024 Social Connections Answer Date Recorded Do you often feel lonely or isolated from those around you? 4 02/18/2025 Financial Resource Strain Answer Date R ecorded Difficulty of Paying Living Expenses 2 02/18/2025 Difficulty of Paying Living Expenses 1 02/18/2025 Food Insecurity Answer Date Recorded Do you worry your food will run out before you are able to buy more? 1 02/18/2025 Transportation Needs Answer Date Record ed Does lack of transportation keep you from medica l appointments? 1 02/18/2025 Does lack of transportation keep you from work, meetings or getting things that you need? 1 02/18/2025 Housing Stability Answer Date Recorded What is your housing situation today? 1 02/18/2025 Utilities Answer Date Recorded Do you have trouble paying f or utilities (for example, heat, electricity, water, phone)? 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 Gender Identity Not on file Sexual Orientation [...] Sign Reading Time Taken Comments Blood Pressure 127/86 05/02/2025 7:58 AM CDT Pulse 74 05/02/2025 7:58 AM CDT Temperature 36.6 C (97.8 F) 05/02/2025 7:58 AM CDT Respiratory Rate 16 02/23/2025 11:3 2 AM CDT Oxygen Saturation 98% 05/02/2025 7:58 AM CDT Inhaled Oxygen Concentration - - Weight 75.7 kg (166 lb 14.4 oz) 05/02/2025 7:58 AM CDT Height 149.9 cm (4' 11) 12/28/2024 10: 51 AM CDT Body Mass Index 33.71 12/28/2024 10:51 AM CDT Plan of Treatment Upcoming Encounters Date Type Department Care Team (Late st Contact Info) Description 06/08/2025 9:30 AM CDT Office Visit [facility] [address] [place] [address] Padmini Kim PA [address] [place] [address] 04/05/2026 9:00 AM CDT Office Visit [facility] [address] [address] [place] [address] [place], [place] [phone] Health Maintenance Due Date Last Done Comments Tetanus booster 03/04/2022 03/04/2012, 01/30/1999 COVID-19 vaccine series ( season) 2025 04/26/2024, 09/15/2023, 07/17/2022, Additional history exists Influenza Vaccine (#1) 2025 , 05/23/2023, 07/17/2022, Additional history exists BMI (ht and wt on same day) for age 18+ 12/24/2025 12/24/2024, 11/25/2023, 04/28/2023, Additional history exists Depression screening for age 12+ 12/24/2025 12/24/2024, 11/27/2023, 11/25/2023, Additional history exists Medicare Wellness for age 65+ 12/25/2025 12/24/2024, 11/25/2023, 11/05/2022, Additional history exists Pneumococcal series for age 50+ Completed 05/18/2018, 07/03/2016, 12/10/1996 DEXA/DXA scan for age 65+ Completed 2019, 12/29/2015, 12/26/2009 Hepatitis C screening for age 18-79 Completed 08/16/2020 Zoster (shingles) series for age 50+ Completed 08/16/2020, 05/19/2020, 10/24/2018, Additional history exists RSV vaccine for adults or Completed 07/07/2024 Hepatitis B series for 19+ Aged Out N o longer eligible based on patient's age to complete this topic Goals Goal Patient Goal Type Associated Problems [...] Procedure Name Priority Date/Time Associated Diagnosis Comments COVID/FLU/RSV PANEL Routine 05/02/2025 8:02 AM CDT Upper respiratory tract infection, unspecified type XR CHEST 2 VIEWS PA AND LATERAL Routine 04/19/2025 11:23 AM CDT SOB (shortness of breath) XR MAMMO CHALO BILAT SCREEN Routine 03/11/2025 10:21 AM CDT Visit for screening mammogram AMB EPIDURAL STEROID INJECTION Routine 03/08/2025 6:52 AM CDT Lumbar radiculopathy RI NJX DX/THER SBST INTRLMNR LMBR/SAC W/IMG GDN Routine 03/08/2025 12:00 AM CDT Lumbar radiculopathy Lumbar spondylosis ANTI HCV Routine 08/16/2020 2:35 PM HUMAN RESOURCES DEPARTMENT SUPERVISOR Need for hepatitis C screening test XR DXA BONE DENSITY 2 SITES AXIAL Routine 05/29/2020 11:43 AM CDT Post-menopausal from Last 3 Months or Most Recently Relevant to Health Maintenance Results * (ABNORMAL) COVID/FLU/RSV PANEL (05/02/2025 8:02 AM CDT) COVID 19 [facility] Positive(A) Negative 05/02/2025 8:59 PM CDT [facility] INFLUENZA A PCR Negative 5 8:59 PM CDT [facility] INFLUENZA B PCR Negative 5 8:59 PM CDT [facility] Respiratory Syncytial Virus Negative 05/02/2025 8:59 PM CDT [facility] Swab SPECIMEN FROM NASOPHARYNGEAL STRUCTURE / Unknown Non-Blood / Unknown 05/02/2025 8:02 AM CDT 05/02/2025 8:16 AM CDT Gay STORM MICROBIOLOGY Final Result [facility] [address] [place] [address], [place] * XR CHEST 2 VIEWS PA AND LATERAL (04/19/2025 11:23 AM CDT) Anatomical Region Laterality Modality CHEST, THORAX, Lung, HEART Compu miguel a Radiography 04/19/2025 12:2 1 PM CDT Impressions 04/19/2025 12:21 PM CDT No acute findings. Dictated by Geraldo Rodrigues MD @ 04/19/2025 12:21:43 PM (Electronically Signed) Narrative 04/19/2025 12:21 PM CDT For Patients: As a result of the Cures Act, medical imaging exams and procedure reports are released immediately into your electronic medical record. You may view this report before your referring provider. If you have questions, please contact your health care provider. INDICATION: SOB (shortness of breath) TECHNIQUE: Chest 2 views COMPARISON: 5..24 FINDINGS: Cardiovascular and mediastinum: Aortic tortuosity. Cardiac silhouette enlarged. Lungs and pleural spaces: Mild areas of scarring noted. No sign of infiltrate or mass. No sign of pleural effusion. No pneumothorax. Bones and soft tissues: Chronic changes with increased kyphosis. Procedure Note Geraldo Rodrigues MD - 04/19/2025 For Patients: As a result of the Cures Act, medical imagingexams and procedure reports are released immediately into your electronicmedical record. You may view this report before your referring provider.If you have questions, please contact your health care provider. INDICATION: SOB (shortness of breath) TECHNIQUE: Chest 2 views COMPARISON: 01.09.24 FINDINGS: Cardiovascular and mediastinum: Aortic tortuosity. Cardiac silhouetteenlarged. Lungs and pleural spaces: Mild areas of scarring noted. No sign ofinfiltrate or mass. No sign of pleural effusion. No pneumothorax. Bones and soft tissues: Chronic changes with increased kyphosis. IMPRESSION: No acute findings. Dictated by Geraldo Rodrigues MD @ 04/19/2025 12:21:43 PM (Electronically Signed) us Padmini STORM GENERAL IMAGING Final R esult * XR MAMMO CHALO BILAT SCREEN (03/11/2025 10:21 AM CDT) Anatomical Region Laterality Modality BREASTS, Breast Left, Breast Right Bilateral Mammography Impressions 03/14/2025 3:09 PM CDT There is no radiographic evidence for malignancy. Recommend annual mammograms. MAMMOGRAM ASSESSMENT: ACR 1 Negative PATIENTS: You will also receive a letter with your examination results in an easy to read format. If you have questions about your results, please contact your referring provider. Narrative 03/14/2025 3:09 PM CDT For Patients: As a result of the Cures Act, medical imaging exams and procedure reports are released immediately into your electronic medical record. You may view this report before your referring provider. If you have questions, please contact your health care provider. XR MAMMO CHALO BILAT SCREEN [[id number]] CLINICAL HISTORY: This is an asymptomatic 79 y.o. patient. INDICATION FOR EXAM: Mammogram Screening. TECHNIQUE: CC and MLO views were obtained. This study was evaluated with the assistance of Computer-Aided Detection. Breast Tomosynthesis was used in interpretation. COMPARISON FILM: Yes 10/28/22 [facility] 10/09/21 [facility] FINDINGS: The breasts are almost entirely fatty. There are no dominant masses, suspicious micro calcifications or areas of architectural distortion. us Padmini STORM MAMMO Final R esult * RI NJX DX/THER SBST INTRLMNR LMBR/SAC W/IMG GDN (03/08/2025 12:00 AM CDT) Vik Belcher MD PB - NERVOUS SYSTEM SERVIC ES Final Result * ANTI HCV (08/16/2020 2:35 PM HUMAN RESOURCES DEPARTMENT SUPERVISOR) HEPATITIS C ANTIBODY Non-React maykel Non-React maykel 08/16/2020 7:30 PM HUMAN RESOURCES DEPARTMENT SUPERVISOR [facility] Comment:Antibodies to HCV no t detected; does not exclude the possibility of exposure to HCV. Blood BLOOD SPECIMEN / Unknown Venipuncture / Unknown 08/16/2020 2:35 PM HUMAN RESOURCES DEPARTMENT SUPERVISOR 08/16/2020 2:39 PM HUMAN RESOURCES DEPARTMENT SUPERVISOR Wendy STORM SEND OUTS Final Resu lt [facility] [address] [place] [address], [place] * (ABNORMAL) XR DXA BONE DENSITY 2 SITES AXIAL (05/29/2020 11:43 AM CDT) Anatomical Region Laterality Modality Spine, HIPS, HIPL, HIPR Other Narrative 05/30/2020 1:15 PM CDT Please see scanned document for results of this study. 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
--- NOTE | 2025-05-26 17:12 | CRLHL7_ITS ---
For Patients: As a result of the Century Cures Act, medical imaging exams and procedure reports are released immediately into your electronic medical record. You may view this report before your referring provider. If you have questions, please contact your health care provider. INDICATION: AMS TECHNIQUE: CT of the head was performed without IV contrast. COMPARISON: 05/28/2023. FINDINGS: Parenchyma: No acute hemorrhage, infarction, or mass. Moderate confluent periventricular white matter hypoattenuation is nonspecific and is favored to represent chronic small vessel ischemic disease. Ventricles and extra-axial spaces: Appropriate for age. Visualized paranasal sinuses: Clear. Mastoid air cells: Clear. Bones: No focal abnormality. Additional comment: Bilateral lens surgery. IMPRESSION: No acute hemorrhage or large territory infarct. Findings discussed with Dr. Raciel Grady at 5:44 p.m. on 05/26/2025. Please note that all CT scans at this facility use dose modulation, iterative reconstruction, and/or weight-based dosing when appropriate to reduce radiation dose to as low as reasonably achievable. Dictated by Miguel Roman MD @ 05/26/2025 5:47:40 PM (Electronically Signed)
[2025-05-26 17:30] LABS: Lactate* 9.0 mmol/L (0.5-1.9)
[2025-05-26 17:37] LABS: Glucose, Point-of-Care* 71 mg/dl (60-115)
[2025-05-26 17:38] LABS: Hematocrit* 42.5 % (33.0-51.0); Hemoglobin* 14.1 gm/dL (12.0-16.0); Immature Granulocytes Pct Auto 1.3 %; Mean Corpuscular HGB Conc 33 gm/dL (32-36); Mean Corpuscular Hemoglobin 31 pg (26-34); Mean Corpuscular Volume 93 fL (80-100); RDW Coefficient of Variation % 12.9 % (11.5-15.5); Red Blood Count* 4.59 m/uL (4.00-5.20); White Blood Count* 12.03 K/uL (4.50-11.00)
[2025-05-26 17:43] LABS: Immature Granulocytes Abs Auto 0.20 K/uL (0.00-0.30); Lymphocytes Absolute Auto 3.20 K/uL (0.90-2.90); Slide Review Reflex No
[2025-05-26 17:45] LABS: Chloride* 101 mmol/L (96-114)
[2025-05-26] MEDS: LACTATED RINGERS 1000 ML 1,000 ML IV (17:45)
[2025-05-26] MEDS: DEXTROSE 50 % SYRINGE IVP (17:45)
[2025-05-26 17:46] LABS: Sodium* 136 mmol/L (135-149)
[2025-05-26 17:49] LABS: Anion Gap 16 mEq/L (7-15); Blood Urea Nitrogen* 18 mg/dL (7-30); Calcium* 9.7 mg/dL (8.4-10.6); Carbon Dioxide* 19 mmol/L (20-32); Creatinine* 1.0 mg/dL (0.5-1.5); Estimated Glomerular Filt Rate 58 ml/min; Glucose* 73 mg/dL (60-115)
--- NOTE | 2025-05-26 17:58 | ED.GENADULT ---
HPI - General Adult General Date Seen: 05/26/25 Chief complaint: Altered Mental Status Stated complaint: stroke Time Seen by Provider: 05/26/25 17:11 Source: patient, family and EMS Mode of arrival: EMS Limitations: no limitations History of Present Illness HPI narrative: Patient is a 79-year-old female presenting to the emergency department initially as a code stroke via EMS. Initial report states that they were called to the scene initially for cardiac arrest and patient was unresponsive. When they arrived patient was breathing but was not answering questions and was just staring off into the distance. They were unable to determine what exactly was going on with her as she would not follow directions so they called a code stroke. EMS states on the drive here patient became more active and responsive. She is following some commands now and is answering in short answers. EMS was not able to give further history and neither was the patient. Patient's daughter arrived she states they were on the deck when the patient said that she is shaking and does not know why. Patient sat down and the daughter states she became unresponsive and her eyes rolled behind her head. Feel states the patient appeared to turn purple. The shaking lasted for a few minutes and then resolved but patient was not acting her baseline after that and appeared very confused. Now after the patient had a CT scan in [facility] wake up more the daughter states the patient does seem to be acting more like her baseline although she does seem still slightly more forgetful than normal. Patient has never had symptoms like this before. She denies chest pain, headache, vision changes, weakness, numbness, abdominal pain, diarrhea, constipation, fevers, chills. No recent sick contacts. Related Data Home Medications ?Medication ?Instructions ?Recorded ?Confirmed albuterol sulfate 2.5 mg/3 mL 2.5 mg inhalation Q4H PRN 09/10/22 11/27/23 (0.083 %) solution for nebulization albuterol sulfate 90 mcg/actuation 2 puff inhalation TID PRN 09/10/22 11/27/23 aerosol inhaler buspirone 15 mg tablet 15 mg PO BID 09/10/22 11/27/23 cholestyramine (with sugar) 4 gram 1 ea PO BID 09/10/22 11/27/23 powder for susp in a packet (Questran) cyanocobalamin (vitamin B-12) 1,000 mcg IM Q30D 09/10/22 11/27/23 1,000 mcg/mL injection solution diphenoxylate-atropine 2.5 1 tab PO TID PRN 09/10/22 11/27/23 mg-0.025 mg tablet epinephrine 0.3 mg/0.3 mL 0.3 ml IM Q5-15M PRN 09/10/22 11/27/23 injection, auto-injector ferrous gluconate 324 mg (38 mg 324 mg PO DAILY 09/10/22 11/27/23 iron) tablet gabapentin 100 mg capsule 100 mg PO TID 09/10/22 11/12/23 hydrochlorothiazide 25 mg tablet 25 mg PO DAILY 09/10/22 11/27/23 levothyroxine 88 mcg tablet 88 mcg PO DAILY 09/10/22 11/27/23 potassium chloride 10 mEq 10 meq PO .DAILYWM 09/10/22 11/27/23 tablet,extended release pregabalin 150 mg capsule 150 mg PO BID 09/10/22 11/27/23 rosuvastatin 10 mg tablet 10 mg PO HS 09/10/22 11/27/23 trazodone 50 mg tablet 50 - 100 mg PO HS PRN 09/10/22 11/27/23 venlafaxine 100 mg tablet 100 mg PO BID 09/10/22 11/27/23 cetirizine 10 mg tablet (Zyrtec) 10 mg PO QDAY PRN 11/27/23 11/27/23 doxycycline hyclate 100 mg capsule 100 mg PO BID 11/27/23 11/27/23 nystatin 100,000 unit/gram topical 1 applic topical BID 11/27/23 11/27/23 cream nystatin 100,000 unit/gram topical 1 applic topical QID 11/27/23 11/27/23 powder Previous Rx's ?Medication ?Instructions ?Recorded famotidine 40 mg tablet (Pepcid) 40 mg PO DAILY #10 tabs 09/10/22 sucralfate 1 gram tablet (Carafate) 1 g PO BID #20 tabs 09/10/22 Allergies Allergy/AdvReac Type Severity Reaction Status Date / Time azithromycin Allergy Severe Swelling Verified 05/26/25 17:31 of Lip/Tongue/Throat Cephalosporins Allergy Severe Swelling Verified 05/26/25 17:31 of Lip/Tongue/Throat Corticosteroids Allergy Severe Swelling Verified 05/26/25 17:31 (Glucocorticoids) of Lip/Tongue/Throat diltiazem Allergy Severe Swelling Verified 05/26/25 17:31 of Lip/Tongue/Throat Penicillins Allergy Severe Swelling Verified 05/26/25 17:31 of Lip/Tongue/Throat prednisone Allergy Severe Swelling Verified 05/26/25 17:31 of Lip/Tongue/Throat Sulfa (Sulfonamide Allergy Severe Swelling Verified 05/26/25 17:31 Antibiotics) of Lip/Tongue/Throat nitrofurantoin (From Allergy Intermediate Rash Verified 05/26/25 17:31 Macrobid) STERLING Inhibitors Allergy Unknown Verified 05/26/25 17:31 rivaroxaban Allergy Unknown Hives Verified 05/26/25 17:31 Review of Systems Status of ROS: Reports: 10 or more systems reviewed and unremarkable except as noted in History and below PFSH PFS Medical History Osteoarthritis of carpometacarpal (CMC) joint of right thumb ?M18.11 - Unilateral primary osteoarthritis of first carpometacarpal joint, right hand (ICD-10) Osteoarthritis of carpometacarpal (CMC) joint of left thumb ?M18.12 - Unilateral primary osteoarthritis of first carpometacarpal joint, left hand (ICD-10) Tremor ?R25.1 - Tremor, unspecified (ICD-10) Throat tightness ?R09.89 - Other specified symptoms and signs involving the circulatory and respiratory systems (ICD-10) Gastroesophageal reflux (03/14/12) ?K21.9 - Gastro-esophageal reflux disease without esophagitis (ICD-10) Chest wall pain ?R07.89 - Other chest pain (ICD-10) Cervical radiculopathy ?M54.12 - Radiculopathy, cervical region (ICD-10) Surgical History History of tonsillectomy ?Z90.89 - Acquired absence of other organs (ICD-10) History of arthroscopy of left shoulder (01/07/14) ?Z98.890 - Other specified postprocedural states (ICD-10) History of arthroscopy of right shoulder (10/02/12) ?Z98.890 - Other specified postprocedural states (ICD-10) H/O gastric bypass ?Z98.84 - Bariatric surgery status (ICD-10) 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) ?Z96.652 - Presence of left artificial knee joint (ICD-10) History of total right knee replacement (06/17/14) ?Z96.651 - Presence of right artificial knee joint (ICD-10) History of hysterectomy ?Z90.710 - Acquired absence of both cervix and uterus (ICD-10) H/O hernia repair ?Z98.890 - Other specified postprocedural states (ICD-10) ?Z87.19 - Personal history of other diseases of the digestive system (ICD-10) H/O breast biopsy ?Z98.890 - Other specified postprocedural states (ICD-10) Social History Smoking Status: Never smoker Do you use any of these nicotine containing products: None Second hand tobacco smoke exposure: No How often do you have a drink containing alcohol: never How often do you have six or more drinks on one occasion: Never AUDIT-C Alcohol total score: 0 Non-prescribed substance use: denies use service: No Exam Narrative: Exam Narrative: Const: Well-nourished, Well-developed, in no distress Eyes: PERRL, no conjunctival injection, and symmetrical lids HENT: Atraumatic external nose and ears. Moist mucous membranes. Neck: Symmetric, trachea midline, No thyromegaly. CVS: RRR, No murmurs or gallops. Peripheral pulses 2+ and equal in all extremities RESP: Unlabored respiratory effort. Clear to auscultation bilaterally. GI: Nontender/Nondistended, No rebound or guarding. MSK:Extremities w/o deformity, Normal Active ROM Skin: Warm, Dry. No rashes or lesions. Neuro: Normal Muscle tone, Cranial nerves 2-12 grossly intact, normal [id number], normal [id number], normal gait, normal strength 5/5 upper lower extremities bilaterally, normal sensation upper and lower extremities bilaterally, normal rapid alternating movements. Psych: Awake, Alert, & Oriented x3. Appropriate mood and affect. Const: Vital Signs, click to edit/add: Vital Signs - 24 hr 05/26/25 17:21 05/26/25 17:22 05/26/25 17:25 Temperature 98 F Pulse Rate 99 99 Pulse Rate [Right Pulse Oximeter] 100 Respiratory Rate 18 12 18 Blood Pressure 147/91 H Blood Pressure [Le ft Upper Arm] 147/91 H Pulse Oximetry 95 96 98 Oxygen Delivery Me thod Room Air 05/26/25 17:30 05/26/25 17:32 05/26/25 17:45 Temperature Pulse Rate 89 83 Pulse Rate [Right Pulse Oximeter] Respiratory Rate 17 19 30 H Blood Pressure 132/94 H Blood Pressure [Le ft Upper Arm] Pulse Oximetry 97 96 Oxygen Delivery Me thod 05/26/25 17:46 05/26/25 18:00 05/26/25 18:02 Temperature Pulse Rate 78 85 83 Pulse Rate [Right Pulse Oximeter] Respiratory Rate 19 25 H 17 Blood Pressure 141/87 H 151/89 H Blood Pressure [Le ft Upper Arm] Pulse Oximetry 96 98 97 Oxygen Delivery Me thod 05/26/25 18:03 05/26/25 18:15 05/26/25 18:17 Temperature Pulse Rate 81 80 79 Pulse Rate [Right Pulse Oximeter] Respiratory Rate 16 20 15 Blood Pressure 164/97 H Blood Pressure [Le ft Upper Arm] Pulse Oximetry 98 97 97 Oxygen Delivery Me thod 05/26/25 18:30 05/26/25 18:32 05/26/25 18:33 Temperature Pulse Rate 82 80 79 Pulse Rate [Right Pulse Oximeter] Respiratory Rate 18 18 24 Blood Pressure 169/92 H Blood Pressure [Le ft Upper Arm] Pulse Oximetry 96 98 98 Oxygen Delivery Me thod Course Vital Signs Vital signs: Initial Vital Signs Pulse Rate 99 05/26/25 17:21 Respiratory Rate 18 05/26/25 17:21 Blood Pressure 147/91 H 05/26/25 17:21 Blood Pressure Mean 109 H 05/26/25 17:21 Pulse Oximetry 95 05/26/25 17:21 Vital Signs Pulse Rate 99 05/26/25 17:21 Respiratory Rate 18 05/26/25 17:21 Blood Pressure 147/91 H 05/26/25 17:21 Pulse Oximetry 95 05/26/25 17:21 Temperature 98 F 05/26/25 17:25 Pulse Rate 79 05/26/25 18:33 Respiratory Rate 24 05/26/25 18:33 Blood Pressure 169/92 H 05/26/25 18:32 Pulse Oximetry 98 05/26/25 18:33 Oxygen Delivery Method Room Air 05/26/25 17:25 Medications Administered Medications: Discontinued Medications Generic Name Dose Route Start Last Admin Trade Name Matthew PRN Reason Stop Dose Admin Dextrose 25 gm 05/26/25 17:33 05/26/25 17:45 Dextrose 50 % Syringe IVP 05/26/25 17:34 25 gm ONCE ONE Administration Lactated Ringer's 1,000 mls @ 1,000 mls/hr 05/26/25 17:29 05/26/25 17:45 Lactated Ringers 1000 Ml IV 05/26/25 18:28 1,000 mls/hr .Q1H ONE Administration Medical Decision Making MDM Narrative Medical decision making narrative: Patient is a 79-year-old female who was brought in as a code stroke. I met the patient and ambulance crew in the hallway on the way the CT scan. At this time patient was more responsive than initially for them. She is able to follow commands and is moving extremities appropriately. This does not appear to be a stroke but we will do a head CT immediately. Will hold off on CTAs. Initial workup was brought as unsure if this was a syncopal episode or what exactly occurred. She was not hypotensive or bradycardic. Differential includes seizures, through, medication side effect, syncope, sepsis. Differential include CBC, D-dimer, magnesium, lactate, EtOH, BMP, viral swabs, EKG, troponin, urinalysis, urine drug screen. Blood sugar came back at 71. She has not checked completely hypoglycemic yet but I would prefer her to be hyperglycemic over hypoglycemic at this point so did give an amp of dextrose. Patient was then brought to room 8 where evaluated her again. She still seemed very out of it but is following commands. She does appear confused and cannot say the month or the year. Other that neurologically she was normal. I went back in to evaluate her again once her daughter arrived and patient now appears to be back to baseline. She is answering questions appropriately although she still cannot get the month right but is aware of this season. She is following all commands appropriately. EKG reviewed by myself independently shows no acute concerning abnormalities. Lab work returned showing a white count 12.03 in a lactate of 9.0. Based on this I really do think she had a seizure. Her D-dimer is normal based on age adjusted cutoff. She does have a slightly low potassium at 2.9 this will be replaced. Magnesium within normal limits. ETOH is negative. Urine drug screen is negative. I do not believe she has a UTI. CT scan of her head returned showing no acute concerning abnormalities. MRI was ordered of her brain which does not show any acute concerning abnormalities. Images were interpreted by myself and the radiologist independently. I did speak to Dr. Jack of [facility] he recommends repeating MRI with contrast and to admit the patient for observation and so that they can evaluate her in the morning. Recommends IV loading dose of Keppra of 1 g and then 500 mg b.i.d. of Keppra. I spoke to the admitting hospitalist who accepted her for admission. Lab Data Labs: Lab Results 05/26/25 05/26/25 05/26/25 Range/Units 17:25 17:36 18:10 WBC 12.03 H (4.50-11.00) K/uL RBC 4.59 (4.00-5.20) m/uL Hgb 14.1 (12.0-16.0) gm/dL Hct 42.5 (33.0-51.0) % MCV 93 (80-100) fL MCH 31 (26-34) pg MCHC 33 (32-36) gm/dL RDW Coeff of Bonnie 12.9 (11.5-15.5) % Plt Count 223 (140-440) K/uL Neut % (Auto) 57.5 (42.0-72.0) % Lymph % (Auto) 26.9 (20-44) % Bradley % (Auto) 9.1 (0.0-11.0) % Eos % (Auto) 4.7 (0.0-7.0) % Baso % (Auto) 0.5 (0.0-3.0) % Neut # (Auto) 6.90 (1.7-7.0) K/uL Lymph # (Auto) 3.20 H (0.90-2.90) K/uL Bradley # (Auto) 1.10 H (0.00-0.90) K/UL Eos # (Auto) 0.60 H (0.00-0.50) K/uL Baso # (Auto) 0.10 (0.00-0.30) K/uL Abs Immat Gran (auto) 0.20 (0.00-0.30) K/uL Imm/Tot Granulo (auto) 1.3 % D-Dimer Quant (PE/DVT) 0.51 H (0.00-0.50) ug/ml Sodium 136 (135-149) mmol/L Potassium 2.9 L* (3.6-5.1) mmol/L Chloride 101 (96-114) mmol/L Carbon Dioxide 19 L (20-32) mmol/L Anion Gap 16 H (7-15) mEq/L BUN 18 (7-30) mg/dL Creatinine 1.0 (0.5-1.5) mg/dL Estimated GFR 58 ml/min Glucose 73 (60-115) mg/dL Lactate 9.0 H* (0.5-1.9) mmol/L Calcium 9.7 (8.4-10.6) mg/dL Magnesium 2.2 (1.5-2.6) mg/dL Troponin I < 0.01 (0.01-0.04) ng/mL Urine Color (Yellow) Urine Appearance (Clear) Urine pH (5.0-8.5) Ur Specific [place] (1.000-1.030) Urine Protein (Negative) Urine Glucose (UA) (Negative) Urine Ketones (Negative) Urine Blood (Negative) Urine Nitrite (Negative) Urine Bilirubin (Negative) Urine Urobilinogen (0.2-1.0) Ur Leukocyte Esterase (Negative) Urine RBC (0-2) Urine WBC (0-5) Ur Squamous Epith Cells (None-Few) Urine Bacteria (None) Urine Opiates Screen (Negative) Ur Oxycodone Screen (Negative) Urine Methadone Screen (Negative) Ur Barbiturates Screen (Negative) U Tricyclic Antidepress (Negative) Ur Phencyclidine Scrn (Negative) Ur Amphetamines Screen (Negative) U Methamphetamines Scrn (Negative) U Benzodiazepines Scrn (Negative) Urine Cocaine Screen (Negative) U Marijuana (THC) Screen (Negative) Ur Drug Screen Comment Ethyl Alcohol < 0.01 (0.01-0.03) % SARS-CoV-2 (PCR) Negative SARS-CoV-2 (Negative) Influenza Type A (PCR) Negative PCR FLU A (Negative) Influenza Type B (PCR) Negative PCR FLU B (Negative) RSV (PCR) Negative PCR RSV (Negative) POC Glucose 71 145 H (60-115) mg/dl 05/26/25 Range/Units 18:47 WBC (4.50-11.00) K/uL RBC (4.00-5.20) m/uL Hgb (12.0-16.0) gm/dL Hct (33.0-51.0) % MCV (80-100) fL MCH (26-34) pg MCHC (32-36) gm/dL RDW Coeff of Bonnie (11.5-15.5) % Plt Count (140-440) K/uL Neut % (Auto) (42.0-72.0) % Lymph % (Auto) (20-44) % Bradley % (Auto) (0.0-11.0) % Eos % (Auto) (0.0-7.0) % Baso % (Auto) (0.0-3.0) % Neut # (Auto) (1.7-7.0) K/uL Lymph # (Auto) (0.90-2.90) K/uL Bradley # (Auto) (0.00-0.90) K/UL Eos # (Auto) (0.00-0.50) K/uL Baso # (Auto) (0.00-0.30) K/uL Abs Immat Gran (auto) (0.00-0.30) K/uL Imm/Tot Granulo (auto) % D-Dimer Quant (PE/DVT) (0.00-0.50) ug/ml Sodium (135-149) mmol/L Potassium (3.6-5.1) mmol/L Chloride (96-114) mmol/L Carbon Dioxide (20-32) mmol/L Anion Gap (7-15) mEq/L BUN (7-30) mg/dL Creatinine (0.5-1.5) mg/dL Estimated GFR ml/min Glucose (60-115) mg/dL Lactate (0.5-1.9) mmol/L Calcium (8.4-10.6) mg/dL Magnesium (1.5-2.6) mg/dL Troponin I (0.01-0.04) ng/mL Urine Color Yellow (Yellow) Urine Appearance Clear (Clear) Urine pH 5.0 (5.0-8.5) Ur Specific [place] 1.025 (1.000-1.030) Urine Protein 1+ A (Negative) Urine Glucose (UA) 2+ A (Negative) Urine Ketones Negative (Negative) Urine Blood Trace-intact A (Negative) Urine Nitrite Negative (Negative) Urine Bilirubin Negative (Negative) Urine Urobilinogen 0.2 (0.2-1.0) Ur Leukocyte Esterase Trace A (Negative) Urine RBC 2-5 A (0-2) Urine WBC 5-10 A (0-5) Ur Squamous Epith Cells Few (None-Few) Urine Bacteria None (None) Urine Opiates Screen Negative (Negative) Ur Oxycodone Screen Negative (Negative) Urine Methadone Screen Negative (Negative) Ur Barbiturates Screen Negative (Negative) U Tricyclic Antidepress Negative (Negative) Ur Phencyclidine Scrn Negative (Negative) Ur Amphetamines Screen Negative (Negative) U Methamphetamines Scrn Negative (Negative) U Benzodiazepines Scrn Negative (Negative) Urine Cocaine Screen Negative (Negative) U Marijuana (THC) Screen Negative (Negative) Ur Drug Screen Comment See Note Ethyl Alcohol (0.01-0.03) % SARS-CoV-2 (PCR) (Negative) Influenza Type A (PCR) (Negative) Influenza Type B (PCR) (Negative) RSV (PCR) (Negative) POC Glucose (60-115) mg/dl Imaging Data CT scan - head: Attestation: I have reviewed the pertinent imaging results. Radiologist's impression: No acute hemorrhage or large territory infarct. Findings discussed with Dr. Raciel Grady at 5:44 p.m. on 05/26/2025. Please note that all CT scans at this facility use dose modulation, iterative reconstruction, and/or weight-based dosing when appropriate to reduce radiation dose to as low as reasonably achievable. Dictated by Miguel Roman MD @ 05/26/2025 5:47:40 PM MR Brain: Attestation: I have reviewed the pertinent imaging results. Radiologist's impression: 1. No acute/subacute infarct. 2. Moderate to severe chronic ischemic microvascular disease. 3. Scattered small chronic infarcts within the brain parenchyma, most notably involving the right cerebellum. Dictated by Will Ferrari MD @ 05/26/2025 7:34:59 PM ECG Data Attestation: I personally reviewed and interpreted this ECG as follows: Prior ECG tracings: available for review Interpretation: Normal sinus rhythm with rate of 85 beats per minute, normal intervals, normal axis, no ST or T-wave abnormality. Appears similar to previous EKG on file Discharge Plan Discharge Clinical Impression: Seizure Patient Disposition: Admitted As Observation Condition: Stable
[2025-05-26 17:59] LABS: D Dimer Quantitative* 0.51 ug/ml (0.00-0.50)
[2025-05-26 18:00] LABS: Ethanol* < 0.01 % (0.01-0.03)
[2025-05-26 18:02] LABS: Potassium* 2.9 mmol/L (3.6-5.1)
[2025-05-26 18:18] LABS: Glucose, Point-of-Care* 145 mg/dl (60-115)
--- NOTE | 2025-05-26 18:24 | CRLHL7_ITS ---
For Patients: As a result of the Cures Act, medical imaging exams and procedure reports are released immediately into your electronic medical record. You may view this report before your referring provider. If you have questions, please contact your health care provider. Indication: Altered mental status. Technique: Multiplanar, multisequence MRI of the brain was performed without intravenous contrast. Comparison: CT head 05/26/2025. Findings: The corpus callosum, pituitary gland and close appear intact. Mild degenerative change visualized upper cervical spine. There is no restricted diffusion. No intracranial hemorrhage. The ventricles are proportionate to the cerebral sulci. The 4th ventricle appears midline. The basal cisterns appear patent. No abnormal extra-axial fluid collection identified. Mild parenchymal volume loss. Moderate to severe scattered T2 FLAIR hyperintense foci within the subcortical and periventricular white matter, favored to represent chronic ischemic microvascular disease. Small chronic lacunar infarct right caudate. Small right-sided cerebellar infarcts. There is no intracranial mass, abnormal mass-effect or midline shift identified. Major intracranial vascular flow voids appear grossly intact. Thinning of the ocular lenses. Impression: 1. No acute/subacute infarct. 2. Moderate to severe chronic ischemic microvascular disease. 3. Scattered small chronic infarcts within the brain parenchyma, most notably involving the right cerebellum. Dictated by Will Ferrari MD @ 05/26/2025 7:34:59 PM (Electronically Signed)
[2025-05-26 18:56] LABS: PCR FLU A Negative PCR FLU A (Negative); PCR FLU B Negative PCR FLU B (Negative); PCR RSV Negative PCR RSV (Negative); SARS PCR* Negative SARS-CoV-2 (Negative)
[2025-05-26 19:00] LABS: Appearance Urine Clear (Clear)
[2025-05-26 19:13] LABS: Cannabinoid Screen Urine Negative (Negative)
[2025-05-26 19:14] LABS: Methamphetamines Screen Urine Negative (Negative); Tricyclic Antidepressant Urine Negative (Negative)
--- NOTE | 2025-05-26 20:01 | CRLHL7_ITS ---
For Patients: As a result of the Century Cures Act, medical imaging exams and procedure reports are released immediately into your electronic medical record. You may view this report before your referring provider. If you have questions, please contact your health care provider. INDICATION: Seizure. COMPARISON: None available. TECHNIQUE: Single AP view of the chest. FINDINGS: The patient is rotated rightward. Medical Devices: None. Lung Volumes: Adequate inspiration. No significant atelectasis. Lungs: Clear lungs. Pleura and Pleural spaces: No significant pleural effusion. No pneumothorax. Mediastinum: Rightward patient rotation is thought to account for convexity of the right border of the mediastinum above the heart. Bony Thorax and Soft Tissues: No significant incidental findings. IMPRESSION: 1. No acute findings. 2. Rightward patient rotation is thought to account for convexity of the right border of the mediastinum above the heart. Follow-up PA and lateral chest radiographs are recommended with the patient centered on the PA radiograph. This examination can be performed a clinically appropriate time. Dictated by Arnoldo Camara MD @ 05/26/2025 8:49:21 PM (Electronically Signed)
[2025-05-26 20:14] LABS: HCO3 VBG 20 mmol/L (21-28); PCO2 VBG 39 mmHG (40-50); PO2 VBG 39.3 mmHG (25-47); pH VBG 7.318 (7.32-7.43)
[2025-05-26] MEDS: POTASSIUM BICARB 25 MEQ EFFERVESCENT TAB 50 MEQ PO (20:14)
[2025-05-26] MEDS: LEVETIRACETAM 1,000 mg/100 ml INFUSION 1000 MG IVPB (20:14)
--- NOTE | 2025-05-26 20:33 | PM.IMHP1 ---
Assessment and Plan Assessment and plan (1) Seizure: Problem comment: -first occurrence -lactic acid elevated (9.0), post ictal state, witnessed -neuro consulted; noncon brain MR completed, IV keppra loaded -f/u with contrast MR and neuro televisit in am, continue keppra at 500mg BID -etiology unclear at admission Status: Acute (2) Elevated lactic acid level: Problem comment: -IVF, resolving Status: Acute (3) Acute hypokalemia: Problem comment: -resolving Status: Acute (4) Cognitive decline: Problem comment: -daughter reports more concern in the last year -pt lives alone in her own home, still drives, , anxious Status: Acute (5) Chronic anxiety: Problem comment: -continue buspar, venlafaxine -follows with counselor (Domonique Khan [facility], last visit 05/03/25) Status: Acute (6) Moderate persistent allergic asthma: Problem comment: -continue albuterol nebs/MDI and symbicort Status: Acute (7) Hypertension: Problem comment: -holding HCTZ and potassium at admission Status: Acute (8) Hypothyroidism: Problem comment: -continue levothyroxine dosing Status: Acute (9) Fibromyalgia: Problem comment: -continue lyrica Status: Acute (10) Hyperlipidemia: Problem comment: -continue statin Status: Acute Hospitalist- H&P: HPI History of Present Illness Date Seen: 05/26/25 Chief complaint: stroke Narrative: ADMISSION HISTORY AND PHYSICAL - HOSPITALIST Chief Complaint: New seizure HPI: Patient is a 79 year old white female with a past medical history relevant for fibromyalgia, hypothyroidism, hypertension, chronic diarrhea, moderate persistent asthma who presents via EMS after having a seizure witnessed by daughter. Hallie reports being her usual state of health and had gone with her daughter to 2 appointments in the [facility] for dental surgical planning for dentures. They ate lunch with Hallie's granddaughter and drove back home to [place]. They were sitting out on the deck when suddenly Hallie started to feel and look tremulous, her eyes rolled back in her head and she became very stiff. Her daughter ran to her and cradled her so she would not hit her head as she was seated on the edge of a herrera stool. The daughter was able to keep her cradled while she called 911. She saw her mom's lips turning blue and her jaw was clenched. Her eyes were everted laterally. She was unresponsive. Her body was tremulous but no tonic clonic movements were reported. There was no incontinence. By the time EMS arrived she was in a postictal state. She was not answering questions but was hemodynamically stable. Upon arrival to the ED a code stroke was initiated. Stat imaging was reassuring. She was given dextrose IV, her blood sugar was 76. She is a nondiabetic. She was started on IV fluids. Further workup noted a significant hypokalemia and lactic acidosis. Her postictal state resolved. MRI, noncontrast, of the brain was obtained in the ED. neurology at [facility] was consulted. Loading dose of Keppra was administered. ER COURSE: IV Keppra, LR, dextrose, MRI and CT imaging and labs. Patient was stable in the emergency room with no further seizures and had return to her baseline prior to arrival to the floor. Dr. Jack of [facility] he recommends repeating MRI with contrast and to admit the patient for observation and so that they can evaluate her in the morning. Recommends IV loading dose of Keppra of 1 g and then 500 mg b.i.d. of Keppra CODE STATUS: FULL CODE PCP: EMETERIO Bills EMERGENCY CONTACT PLAN: RayHadleySosa Rel To Pat Daughter Cell I've updated the PFSH, medications and allergies in the Expanse tabs. INVESTIGATIONS: LABS/MICRO/ECG/IMAGING Afebrile Blood pressure has been elevated since arrival 147/91, 164/97 Pulses been in the 70s and 80s Respiratory rate mildly tachypneic 16-24 Pulse ox high 90s on room air 88 kilos Mildly elevated white blood cell count 12.03. Normal differential. Normal platelets. Hemoglobin 14.1 which is her baseline. Mildly acidotic pH is 7.3. Potassium is 2.9, lactate 9.0, glucose 73, bicarb 19, creatinine 1.0, sodium is normal. Magnesium is normal. Troponin is normal. Drug screen is negative Alcohol level is negative Chest x-ray, one view. No acute findings. Patient is rotated. Brain MRI, noncontrast 1. No acute/subacute infarct. 2. Moderate to severe chronic ischemic microvascular disease. 3. Scattered small chronic infarcts within the brain parenchyma, most notably involving the right cerebellum. REVIEW OF SYSTEMS: 12-point ROS completed with patient and negative unless otherwise stated in HPI or below. PHYSICAL EXAM: CONSTITUTIONAL: Talkative and ambulatory the room. GENERAL: Well-developed and above ideal body weight, in no respiratory distress. VITAL SIGNS: see record. HEENT: Sclerae are anicteric. No petechiae. Small abrasion inside her left bottom lip. CARDIAC: rhythm is regular. There is no S3 or rub. No harsh murmurs. Extremities show trace edema with symmetrical pulses. PULM: good air entry with no wheeze. NEURO: Speech is fluent. A brief neurologic exam is negative. SKIN: No rashes, petechiae, concerning changes PSYCHIATRIC: Euthymic. ADMIT TO MEDSURG: FLOOR CARE DVT: SCDs GI: PO intake Time spent: Today I spent 75 minutes seeing the patient, discussing the patient with ER staff, reviewing Expanse and EPIC notes/diagnostics, discussing the care plan with our care time that includes social work, PT/OT, pharmacy, RT, retirement and documenting my impressions and plan in the medical record. Medical Decision Making Medical Decision Making Has patient completed a Health Care Directive: No PFSH PFSH Medical History (Updated 05/26/25 @ 22:58 by Yoselyn Pascual MD) IBS (irritable bowel syndrome) ?K58.9 - Irritable bowel syndrome, unspecified (ICD-10) Degenerative arthritis of lumbar spine ?M47.816 - Spondylosis without myelopathy or radiculopathy, lumbar region (ICD-10) B12 deficiency ?E53.8 - Deficiency of other specified B group vitamins (ICD-10) Moderate persistent allergic asthma ?J45.40 - Moderate persistent asthma, uncomplicated (ICD-10) Chronic anxiety ?F41.9 - Anxiety disorder, unspecified (ICD-10) Fibromyalgia ?M79.7 - Fibromyalgia (ICD-10) Hearing loss ?H91.90 - Unspecified hearing loss, unspecified ear (ICD-10) Hypothyroidism ?E03.9 - Hypothyroidism, unspecified (ICD-10) Hypertension ?I10 - Essential (primary) hypertension (ICD-10) Osteoarthritis of carpometacarpal (CMC) joint of right thumb ?M18.11 - Unilateral primary osteoarthritis of first carpometacarpal joint, right hand (ICD-10) Osteoarthritis of carpometacarpal (CMC) joint of left thumb ?M18.12 - Unilateral primary osteoarthritis of first carpometacarpal joint, left hand (ICD-10) Tremor ?R25.1 - Tremor, unspecified (ICD-10) Gastroesophageal reflux (03/14/12) ?K21.9 - Gastro-esophageal reflux disease without esophagitis (ICD-10) Cervical radiculopathy ?M54.12 - Radiculopathy, cervical region (ICD-10) Surgical History (Updated 05/26/25 @ 20:43 by Yoselyn Pascual MD) Status post panniculectomy ?Z98.890 - Other specified postprocedural states (ICD-10) History of tonsillectomy ?Z90.89 - Acquired absence of other organs (ICD-10) History of arthroscopy of left shoulder (01/07/14) ?Z98.890 - Other specified postprocedural states (ICD-10) History of arthroscopy of right shoulder (10/02/12) ?Z98.890 - Other specified postprocedural states (ICD-10) H/O gastric bypass ?Z98.84 - Bariatric surgery status (ICD-10) 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) ?Z96.652 - Presence of left artificial knee joint (ICD-10) History of total right knee replacement (06/17/14) ?Z96.651 - Presence of right artificial knee joint (ICD-10) History of hysterectomy ?Z90.710 - Acquired absence of both cervix and uterus (ICD-10) H/O hernia repair ?Z98.890 - Other specified postprocedural states (ICD-10) ?Z87.19 - Personal history of other diseases of the digestive system (ICD-10) H/O breast biopsy ?Z98.890 - Other specified postprocedural states (ICD-10) Social History What is your current living situation?: I presently have a place to live Problems where you live: no known problems In the past 12 months, utilities in danger of being shut off: no In past 12 months, lack of transportation kept you from medical appts, meetings, work, or getting things needed for daily living: no In the past 12 mos, have been you worried that your food would run out before you had money to buy more?: never true In the past 12 mos, the food you bought just didn't last and you didn't have money to buy more?: never true Smoking Status: Never smoker Do you use any of these nicotine containing products: None Second hand tobacco smoke exposure: No How often do you have a drink containing alcohol: monthly or less Alcohol type: wine How many standard drinks containing alcohol do you have on a typical day: 1 or 2 How often do you have six or more drinks on one occasion: Never AUDIT-C Alcohol total score: 1 Non-prescribed substance use: denies use Caffeine: Yes (tea, soda) How often does anyone, including family, friends and others, physically hurt you: never How often does anyone, including family, friends and others, insult or talk down to you: never How often does anyone, including family, friends and others, threaten you with harm: never How often does anyone, including family, friends and others, scream or curse at you: never service: No Meds Home Medications and Allergies Home Medications ?Medication ?Instructions ?Recorded ?Confirmed ?Type albuterol sulfate 2.5 mg/3 mL 2.5 mg inhalation Q4H PRN 09/10/22 05/26/25 History (0.083 %) solution for nebulization albuterol sulfate 90 mcg/actuation 2 puff inhalation TID PRN 09/10/22 05/26/25 History aerosol inhaler buspirone 15 mg tablet 15 mg PO BID 09/10/22 05/26/25 History cyanocobalamin (vitamin B-12) 1,000 mcg IM Q30D 09/10/22 05/26/25 History 1,000 mcg/mL injection solution diphenoxylate-atropine 2.5 1 tab PO TID PRN 09/10/22 05/26/25 History mg-0.025 mg tablet epinephrine 0.3 mg/0.3 mL 0.3 ml IM Q5-15M PRN 09/10/22 05/26/25 History injection, auto-injector ferrous gluconate 324 mg (38 mg 324 mg PO DAILY 09/10/22 05/26/25 History iron) tablet hydrochlorothiazide 25 mg tablet 25 mg PO DAILY 09/10/22 05/26/25 History levothyroxine 88 mcg tablet 88 mcg PO DAILY 09/10/22 05/26/25 History potassium chloride 10 mEq 10 meq PO .DAILYWM 09/10/22 05/26/25 History tablet,extended release pregabalin 150 mg capsule 150 mg PO BID 09/10/22 05/26/25 History rosuvastatin 10 mg tablet 10 mg PO HS 09/10/22 05/26/25 History venlafaxine 100 mg tablet 100 mg PO BID 09/10/22 05/26/25 History nystatin 100,000 unit/gram topical 1 applic topical BID 11/27/23 11/27/23 History cream nystatin 100,000 unit/gram topical 1 applic topical QID 11/27/23 05/26/25 History powder Allergies Allergy/AdvReac Type Severity Reaction Status Date / Time azithromycin Allergy Severe Swelling Verified 05/26/25 17:31 of Lip/Tongue/Throat Cephalosporins Allergy Severe Swelling Verified 05/26/25 17:31 of Lip/Tongue/Throat Corticosteroids Allergy Severe Swelling Verified 05/26/25 17:31 (Glucocorticoids) of Lip/Tongue/Throat diltiazem Allergy Severe Swelling Verified 05/26/25 17:31 of Lip/Tongue/Throat Penicillins Allergy Severe Swelling Verified 05/26/25 17:31 of Lip/Tongue/Throat prednisone Allergy Severe Swelling Verified 05/26/25 17:31 of Lip/Tongue/Throat Sulfa (Sulfonamide Allergy Severe Swelling Verified 05/26/25 17:31 Antibiotics) of Lip/Tongue/Throat nitrofurantoin (From Allergy Intermediate Rash Verified 05/26/25 17:31 Macrobid) STERLING Inhibitors Allergy Unknown Verified 05/26/25 17:31 rivaroxaban Allergy Unknown Hives Verified 05/26/25 17:31 Exam Const: Vital Signs, click to edit/add: Vital Signs - 24 hr 05/26/25 17:21 05/26/25 17:22 05/26/25 17:25 Temperature 98 F Pulse Rate 99 99 Pulse Rate [Right Pulse Oximeter] 100 Respiratory Rate 18 12 18 Blood Pressure 147/91 H Blood Pressure [Le ft Upper Arm] 147/91 H Pulse Oximetry 95 96 98 Oxygen Delivery Me thod Room Air 05/26/25 17:30 05/26/25 17:32 05/26/25 17:45 Temperature Pulse Rate 89 83 Pulse Rate [Right Pulse Oximeter] Respiratory Rate 17 19 30 H Blood Pressure 132/94 H Blood Pressure [Le ft Upper Arm] Pulse Oximetry 97 96 Oxygen Delivery Me thod 05/26/25 17:46 05/26/25 18:00 05/26/25 18:02 Temperature Pulse Rate 78 85 83 Pulse Rate [Right Pulse Oximeter] Respiratory Rate 19 25 H 17 Blood Pressure 141/87 H 151/89 H Blood Pressure [Le ft Upper Arm] Pulse Oximetry 96 98 97 Oxygen Delivery Me thod 05/26/25 18:03 05/26/25 18:15 05/26/25 18:17 Temperature Pulse Rate 81 80 79 Pulse Rate [Right Pulse Oximeter] Respiratory Rate 16 20 15 Blood Pressure 164/97 H Blood Pressure [Le ft Upper Arm] Pulse Oximetry 98 97 97 Oxygen Delivery Me thod 05/26/25 18:30 05/26/25 18:32 05/26/25 18:33 Temperature Pulse Rate 82 80 79 Pulse Rate [Right Pulse Oximeter] Respiratory Rate 18 18 24 Blood Pressure 169/92 H Blood Pressure [Le ft Upper Arm] Pulse Oximetry 96 98 98 Oxygen Delivery Me thod 05/26/25 19:32 05/26/25 19:45 05/26/25 20:00 Temperature Pulse Rate 79 78 79 Pulse Rate [Right Pulse Oximeter] Respiratory Rate 16 20 Blood Pressure Blood Pressure [Le ft Upper Arm] Pulse Oximetry 97 97 96 Oxygen Delivery Me thod 05/26/25 20:15 Temperature Pulse Rate Pulse Rate [Right Pulse Oximeter] Respiratory Rate 21 Blood Pressure Blood Pressure [Le ft Upper Arm] Pulse Oximetry Oxygen Delivery Me od Hospitalist - H&P: Result Labs Labs: Short CBC 05/26/25 Range/Units 17:25 WBC 12.03 H (4.50-11.00) K/uL Hgb 14.1 (12.0-16.0) gm/dL Hct 42.5 (33.0-51.0) % Plt Count 223 (140-440) K/uL BMP 05/26/25 17:25 Sodium 136 Potassium 2.9 L* Chloride 101 Carbon Dioxide 19 L BUN 18 Creatinine 1.0 Glucose 73 Calcium 9.7 Cardiac Enzymes 05/26/25 Range/Units 17:25 Troponin I < 0.01 (0.01-0.04) ng/mL Urine 05/26/25 Range/Units 18:47 Urine Color Yellow (Yellow) Urine Appearance Clear (Clear) Urine pH 5.0 (5.0-8.5) Ur Specific [place] 1.025 (1.000-1.030) Urine Protein 1+ A (Negative) Urine Glucose (UA) 2+ A (Negative)
[2025-05-26 21:36] LABS: HCO3 VBG 27 mmol/L (21-28); Ionized Calcium* 1.08 mmol/L (1.11-1.30); Lactate* 1.5 mmol/L (0.5-1.9); PCO2 VBG 44 mmHG (40-50); PO2 VBG 37.1 mmHG (25-47); pH VBG 7.395 (7.32-7.43)
[2025-05-26 21:48] LABS: Albumin* 4.1 g/dL (3.3-5.0); Chloride* 100 mmol/L (96-114); Potassium* 4.2 mmol/L (3.6-5.1); Sodium* 134 mmol/L (135-149)
[2025-05-26 21:51] LABS: Anion Gap 9 mEq/L (7-15); Blood Urea Nitrogen* 17 mg/dL (7-30); Calcium* 9.2 mg/dL (8.4-10.6); Carbon Dioxide* 25 mmol/L (20-32); Creatinine* 0.8 mg/dL (0.5-1.5); Estimated Glomerular Filt Rate 76 ml/min; Glucose* 102 mg/dL (60-115)
[2025-05-26] MEDS: BUSPIRONE 10 MG TABLET 15 MG PO (21:58)
[2025-05-26] MEDS: SODIUM CHLORIDE 0.9 % (FLUSH) 10 ML SYRINGE 5 ML IVF (22:04)
[2025-05-26] MEDS: ACETAMINOPHEN 325 MG TABLET 1000 MG PO (23:04)
[2025-05-27 03:00] VITALS: BP 136/77; PULSE 71; RESP 18; TEMP 36.8; O2SAT 97
--- NOTE | 2025-05-27 05:45 | PC.NURSE ---
[id number] Pt slept well during night, ambulating to br with sba, tolerating activity very well. TRIBE at baseline, neuros completed and appropriate. no seizure activity observed during shift. tolerating po intake, no N/V, denies feeling lightheaded or dizzy, denies chest pain, headache or sob.
[2025-05-27] MEDS: LEVOTHYROXINE 88 MCG TABLET PO (06:16)
[2025-05-27 06:33] LABS: Hematocrit* 37.1 % (33.0-51.0); Hemoglobin* 12.3 gm/dL (12.0-16.0); Immature Granulocytes Abs Auto 0.03 K/uL (0.00-0.30); Immature Granulocytes Pct Auto 0.4 %; Lymphocytes Absolute Auto 2.88 K/uL (0.90-2.90); Mean Corpuscular HGB Conc 33 gm/dL (32-36); Mean Corpuscular Hemoglobin 31 pg (26-34); Mean Corpuscular Volume 92 fL (80-100); RDW Coefficient of Variation % 12.9 % (11.5-15.5); Red Blood Count* 4.03 m/uL (4.00-5.20); White Blood Count* 7.89 K/uL (4.50-11.00)
[2025-05-27 06:34] LABS: Slide Review Reflex No
[2025-05-27 06:42] LABS: Chloride* 102 mmol/L (96-114)
[2025-05-27 06:43] LABS: Albumin* 3.8 g/dL (3.3-5.0); Potassium* 3.3 mmol/L (3.6-5.1); Sodium* 134 mmol/L (135-149)
[2025-05-27 06:46] LABS: Anion Gap 7 mEq/L (7-15); Blood Urea Nitrogen* 16 mg/dL (7-30); Calcium* 8.9 mg/dL (8.4-10.6); Carbon Dioxide* 25 mmol/L (20-32); Creatinine* 0.8 mg/dL (0.5-1.5); Estimated Glomerular Filt Rate 76 ml/min; Glucose* 94 mg/dL (60-115)
[2025-05-27 07:00] VITALS: BP 141/94; PULSE 71; PULSE 78; RESP 18; TEMP 36.8; O2SAT 96
[2025-05-27] MEDS: ACETAMINOPHEN 325 MG TABLET 1000 MG PO (09:35)
[2025-05-27] MEDS: BUSPIRONE 10 MG TABLET 15 MG PO (09:35)
[2025-05-27 11:00] VITALS: BP 134/72; PULSE 82; O2SAT 98
--- NOTE | 2025-05-27 12:50 | REH.OT ---
Order for OT eval and treat received. Patient currently performing at baseline in ADLs, just c/o of feeling more tired. Balance WFL per PT note. Family will be available for support and extra assistance over the next two days. Patient with no questions/concerns for OT at this time.
[2025-05-27] MEDS: PREGABALIN 75 MG CAPSULE PO (13:30)
--- NOTE | 2025-05-27 15:06 | PM.DS1 ---
DS: Providers Provider Date Seen: 05/27/25 Date of admission: 05/27/25 08:54 Primary care physician: Padmini Kim PA-C Admitting Clinician: Yoselyn Pascual MD Consults: 05/26/25 21:32 Consult to Occupational Therapy [CONS] Routine Comment: Reason(s) for OT Consult:: Evaluate and Treat Any Restrictions?:: No Restrictions Consult to Physical Therapy [CONS] Routine Comment: Reason(s) for PT Consult:: Evaluate and Treat Any Restrictions?:: No Restrictions Consult to [employer] [CONS] Routine Comment: Reason for Consult:: Social Service Consult Attending Physician on discharge: He Stearns MD Date of Discharge: 05/27/25 DS: Diagnosis Discharge Diagnosis (1) Seizure: Status: Acute Problem details: -first occurrence -lactic acid elevated (9.0), post ictal state, witnessed -neuro consulted; noncon brain MR completed, IV keppra loaded -f/u with contrast MR and neuro televisit in am, continue keppra at 500mg BID -etiology unclear at admission -MRI of brain without (05/26/15) and with contrast (05/27/2025) demonstrate no tumors, does demonstrate previous strokes as likely causitive of seizures -discharge home with plan to establish safe living setting and plan SOON such as living with family, or assisted living, or other options; plus, no more driving motor vehicles; follow-up with outpatient neurologist and consider outpatient EEG; plus keppra 1000 mg po bid (2) Post-ictal confusion: Status: Acute (3) History of lacunar cerebrovascular accident (CVA): Status: Acute Problem details: - MRI brain 05/26/2025 and 05/27/2025: right cerebellum and right claudate nucleus (4) Cerebral microvascular disease: Status: Acute Problem details: - MRI brain 05/26/2025 and 05/27/2025: moderate to severe, consistent with chronic ischemic microvascular disease (5) Elevated lactic acid level: Status: Acute Problem details: -IVF, resolving (6) Acute hypokalemia: Status: Acute Problem details: -resolving (7) Cognitive decline: Status: Acute Problem details: -daughter reports more concern in the last year -pt lives alone in her own home, still drives, , anxious -advised patient and family to establish a long-term safe living plan soon, including she can no longer live alone without help, can no longer drive (8) Chronic anxiety: Status: Acute Problem details: -continue buspar, venlafaxine -follows with counselor (Domonique Khan [facility], last visit 05/03/25) (9) Hypertension: Status: Acute Problem details: - long history (10) Hyperlipidemia: Status: Acute Problem details: -continue statin (11) B12 deficiency: Status: Acute (12) Hypothyroidism: Status: Acute Problem details: -continue levothyroxine dosing (13) Degenerative arthritis of lumbar spine: Status: Acute (14) Hearing loss: Status: Acute (15) Fibromyalgia: Status: Acute Problem details: -continue lyrica (16) Moderate persistent allergic asthma: Status: Acute Problem details: -continue albuterol nebs/MDI and symbicort (17) IBS (irritable bowel syndrome): Status: Acute DS: Summary Hospital Course Hospital Course: Admission history of present illness: ?79 year old white female with a past medical history relevant for fibromyalgia, hypothyroidism, hypertension, chronic diarrhea, moderate persistent asthma who presents via EMS after having a seizure witnessed by daughter. Hallie reports being her usual state of health and had gone with her daughter to 2 appointments in the [facility] for dental surgical planning for dentures. They ate lunch with Hallie's granddaughter and drove back home to [place]. They were sitting out on the deck when suddenly Hallie started to feel and look tremulous, her eyes rolled back in her head and she became very stiff. Her daughter ran to her and cradled her so she would not hit her head as she was seated on the edge of a herrera stool. The daughter was able to keep her cradled while she called 911. She saw her mom's lips turning blue and her jaw was clenched. Her eyes were everted laterally. She was unresponsive. Her body was tremulous but no tonic clonic movements were reported. There was no incontinence. By the time EMS arrived she was in a postictal state. She was not answering questions but was hemodynamically stable. ?Upon arrival to the ED a code stroke was initiated. Stat imaging was reassuring. She was given dextrose IV, her blood sugar was 76. She is a nondiabetic. She was started on IV fluids. ?Further workup noted a significant hypokalemia and lactic acidosis. Her postictal state resolved. MRI, noncontrast, of the brain was obtained in the ED. neurology at [facility] was consulted. Loading dose of Keppra was administered. ?ER COURSE: IV Keppra, LR, dextrose, MRI and CT imaging and labs. Patient was stable in the emergency room with no further seizures and had return to her baseline prior to arrival to the floor. Dr. Jack of [facility] he recommends repeating MRI with contrast and to admit the patient for observation and so that they can evaluate her in the morning. Recommends IV loading dose of Keppra of 1 g and then 500 mg b.i.d. of Keppra ?CODE STATUS: FULL CODE ?PCP: EMETERIO Bills? Patient tolerated Keppra dosing 500 mg p.o. b.i.d.. No further seizures or episodes of confusion during hospital stay. Neurology consultation via telehealth obtained with recommendations given after the MRI of the head without and with contrast demonstrated no neoplasm but only post stroke findings the following increase Keppra 1000 mg twice daily, outpatient neurology follow-up, outpatient EEG, no driving per [place] laws, continue with other supportive efforts. Additionally recommended to patient and family that they proceed with plans that they have been working on to establish a safer living situation for the patient such as assisted living or moving in with family. Status at Discharge Overall status at discharge: patient is progressing back to baseline Time Spent with Patient Time attestation: Total time spent providing and/or coordinating discharge services: Time spent: Greater than 30 minutes Exam Narrative: Exam Narrative: No focal motor neurologic deficits. Independent transfer, station, gait. Cranial nerves 3-12 grossly normal. No tremor, asterixis, or ataxia. Const: Vital Signs, click to edit/add: Vital Signs - 24 hr 05/26/25 17:21 05/26/25 17:22 05/26/25 17:25 Temperature 98 F Pulse Rate 99 99 Pulse Rate [Pulse Oximeter] Pulse Rate [Right Pulse Oximeter] 100 Respiratory Rate 18 12 18 Blood Pressure 147/91 H Blood Pressure [Le ft Arm] Blood Pressure [Le ft Upper Arm] 147/91 H Pulse Oximetry 95 96 98 Oxygen Delivery Me thod Room Air 05/26/25 17:30 05/26/25 17:32 05/26/25 17:45 Temperature Pulse Rate 89 83 Pulse Rate [Pulse Oximeter] Pulse Rate [Right Pulse Oximeter] Respiratory Rate 17 19 30 H Blood Pressure 132/94 H Blood Pressure [Le ft Arm] Blood Pressure [Le ft Upper Arm] Pulse Oximetry 97 96 Oxygen Delivery Me thod 05/26/25 17:46 05/26/25 18:00 05/26/25 18:02 Temperature Pulse Rate 78 85 83 Pulse Rate [Pulse Oximeter] Pulse Rate [Right Pulse Oximeter] Respiratory Rate 19 25 H 17 Blood Pressure 141/87 H 151/89 H Blood Pressure [Le ft Arm] Blood Pressure [Le ft Upper Arm] Pulse Oximetry 96 98 97 Oxygen Delivery Me thod 05/26/25 18:03 05/26/25 18:15 05/26/25 18:17 Temperature Pulse Rate 81 80 79 Pulse Rate [Pulse Oximeter] Pulse Rate [Right Pulse Oximeter] Respiratory Rate 16 20 15 Blood Pressure 164/97 H Blood Pressure [Le ft Arm] Blood Pressure [Le ft Upper Arm] Pulse Oximetry 98 97 97 Oxygen Delivery Me thod 05/26/25 18:30 05/26/25 18:32 05/26/25 18:33 Temperature Pulse Rate 82 80 79 Pulse Rate [Pulse Oximeter] Pulse Rate [Right Pulse Oximeter] Respiratory Rate 18 18 24 Blood Pressure 169/92 H Blood Pressure [Le ft Arm] Blood Pressure [Le ft Upper Arm] Pulse Oximetry 96 98 98 Oxygen Delivery Me thod 05/26/25 19:32 05/26/25 19:45 05/26/25 20:00 Temperature Pulse Rate 79 78 79 Pulse Rate [Pulse Oximeter] Pulse Rate [Right Pulse Oximeter] Respiratory Rate 16 20 Blood Pressure Blood Pressure [Le ft Arm] Blood Pressure [Le ft Upper Arm] Pulse Oximetry 97 97 96 Oxygen Delivery Me thod 05/26/25 20:15 05/26/25 21:32 05/26/25 21:32 Temperature Pulse Rate 73 Pulse Rate [Pulse Oximeter] 76 Pulse Rate [Right Pulse Oximeter] Respiratory Rate 21 18 Blood Pressure Blood Pressure [Le ft Arm] 140/85 H Blood Pressure [Le ft Upper Arm] Pulse Oximetry 99 Oxygen Delivery Me thod Room Air 05/26/25 21:32 05/26/25 21:33 05/27/25 03:00 Temperature 98.4 F 98.3 F Pulse Rate Pulse Rate [Pulse Oximeter] 73 76 71 Pulse Rate [Right Pulse Oximeter] Respiratory Rate 16 18 Blood Pressure Blood Pressure [Le ft Arm] 140/85 H 136/77 Blood Pressure [Le ft Upper Arm] Pulse Oximetry 99 97 Oxygen Delivery Me thod Room Air Room Air DS: Data Data Completed and Pending Labs on day of discharge: Labs from last 24 hours 05/27/25 05/26/25 05/26/25 06:01 21:35 21:32 WBC 7.89 RBC 4.03 Hgb 12.3 Hct 37.1 MCV 92 MCH 31 MCHC 33 RDW Coeff of Bonnie 12.9 Plt Count 163 Neut % (Auto) 48.6 Lymph % (Auto) 36.5 [place] % (Auto) 8.1 Eos % (Auto) 5.8 Baso % (Auto) 0.6 Neut # (Auto) 3.83 Lymph # (Auto) 2.88 [place] # (Auto) 0.60 Eos # (Auto) 0.46 Baso # (Auto) 0.05 Abs Immat Gran (auto) 0.03 Imm/Tot Granulo (auto) 0.4 D-Dimer Quant (PE/DVT) VBG pH VBG pCO2 VBG pO2 VBG HCO3 Sodium 134 L Potassium 3.3 L Chloride 102 Carbon Dioxide 25 Anion Gap 7 BUN 16 Creatinine 0.8 Estimated GFR 76 Glucose 94 Hemoglobin A1c Lactate Calcium 8.9 Ionized Calcium Jorge Phosphorus 3.9 Magnesium Troponin I C-Reactive Protein Albumin 3.8 TSH Urine Color Urine Appearance Urine pH Ur Specific [place] Urine Protein Urine Glucose (UA) Urine Ketones Urine Blood Urine Nitrite Urine Bilirubin Urine Urobilinogen Ur Leukocyte Esterase Urine RBC Urine WBC Ur Squamous Epith Cells Urine Bacteria Urine Opiates Screen Ur Oxycodone Screen Urine Methadone Screen Ur Barbiturates Screen U Tricyclic Antidepress Ur Phencyclidine Scrn Ur Amphetamines Screen U Methamphetamines Scrn U Benzodiazepines Scrn Urine Cocaine Screen U Marijuana (THC) Screen Ur Drug Screen Comment Ethyl Alcohol SARS-CoV-2 (PCR) Influenza Type A (PCR) Influenza Type B (PCR) RSV (PCR) Lab Acknowledgement Test Added Test Added POC Glucose 05/26/25 05/26/25 05/26/25 21:30 18:47 18:10 WBC RBC Hgb Hct MCV MCH MCHC RDW Coeff of Bonnie Plt Count Neut % (Auto) Lymph % (Auto) [place] % (Auto) Eos % (Auto) Baso % (Auto) Neut # (Auto) Lymph # (Auto) [place] # (Auto) Eos # (Auto) Baso # (Auto) Abs Immat Gran (auto) Imm/Tot Granulo (auto) D-Dimer Quant (PE/DVT) VBG pH 7.395 VBG pCO2 44 VBG pO2 37.1 VBG HCO3 27 Sodium 134 L Potassium 4.2 Chloride 100 Carbon Dioxide 25 Anion Gap 9 BUN 17 Creatinine 0.8 Estimated GFR 76 Glucose 102 Hemoglobin A1c 5.7 H Lactate 1.5 Calcium 9.2 Ionized Calcium Jorge 1.08 L Phosphorus 3.5 Magnesium Troponin I C-Reactive Protein Albumin 4.1 TSH Urine Color Yellow Urine Appearance Clear Urine pH 5.0 Ur Specific [place] 1.025 Urine Protein 1+ A Urine Glucose (UA) 2+ A Urine Ketones Negative Urine Blood Trace-intact A Urine Nitrite Negative Urine Bilirubin Negative Urine Urobilinogen 0.2 Ur Leukocyte Esterase Trace A Urine RBC 2-5 A Urine WBC 5-10 A Ur Squamous Epith Cells Few Urine Bacteria None Urine Opiates Screen Negative Ur Oxycodone Screen Negative Urine Methadone Screen Negative Ur Barbiturates Screen Negative U Tricyclic Antidepress Negative Ur Phencyclidine Scrn Negative Ur Amphetamines Screen Negative U Methamphetamines Scrn Negative U Benzodiazepines Scrn Negative Urine Cocaine Screen Negative U Marijuana (THC) Screen Negative Ur Drug Screen Comment See Note Ethyl Alcohol SARS-CoV-2 (PCR) Negative SARS-CoV-2 Influenza Type A (PCR) Negative PCR FLU A Influenza Type B (PCR) Negative PCR FLU B RSV (PCR) Negative PCR RSV Lab Acknowledgement POC Glucose 145 H 05/26/25 05/26/25 17:36 17:25 WBC 12.03 H RBC 4.59 Hgb 14.1 Hct 42.5 MCV 93 MCH 31 MCHC 33 RDW Coeff of Bonnie 12.9 Plt Count 223 Neut % (Auto) 57.5 Lymph % (Auto) 26.9 [place] % (Auto) 9.1 Eos % (Auto) 4.7 Baso % (Auto) 0.5 Neut # (Auto) 6.90 Lymph # (Auto) 3.20 H [place] # (Auto) 1.10 H Eos # (Auto) 0.60 H Baso # (Auto) 0.10 Abs Immat Gran (auto) 0.20 Imm/Tot Granulo (auto) 1.3 D-Dimer Quant (PE/DVT) 0.51 H VBG pH 7.318 L VBG pCO2 39 L VBG pO2 39.3 VBG HCO3 20 L Sodium 136 Potassium 2.9 L* Chloride 101 Carbon Dioxide 19 L Anion Gap 16 H BUN 18 Creatinine 1.0 Estimated GFR 58 Glucose 73 Hemoglobin A1c Lactate 9.0 H* Calcium 9.7 Ionized Calcium Jorge Phosphorus Magnesium 2.2 Troponin I < 0.01 C-Reactive Protein < 0.5 L Albumin TSH 0.381 Urine Color Urine Appearance Urine pH Ur Specific [place] Urine Protein Urine Glucose (UA) Urine Ketones Urine Blood Urine Nitrite Urine Bilirubin Urine Urobilinogen Ur Leukocyte Esterase Urine RBC Urine WBC Ur Squamous Epith Cells Urine Bacteria Urine Opiates Screen Ur Oxycodone Screen Urine Methadone Screen Ur Barbiturates Screen U Tricyclic Antidepress Ur Phencyclidine Scrn Ur Amphetamines Screen U Methamphetamines Scrn U Benzodiazepines Scrn Urine Cocaine Screen U Marijuana (THC) Screen Ur Drug Screen Comment Ethyl Alcohol < 0.01 SARS-CoV-2 (PCR) Influenza Type A (PCR) Influenza Type B (PCR) RSV (PCR) Lab Acknowledgement POC Glucose 71 Preliminary micro results at discharge 05/26/25 18:47 Urine Culture - Preliminary Urine,Clean Catch Gram negative jhon Imaging MR Brain: My impression: Without contrast and with contrast demonstrate no masses or neoplasms, lacunar strokes in the caudate nucleus and right cerebellum, micro angio pathic changes consistent with chronic ischemic microvascular disease. Discharge Plan Discharge Disposition: Home, Self-Care Date of Admission: 05/27/25 08:54 Attending Provider on Discharge: He Stearns Primary Care Provider: Padmini Kim Condition: Improved Anticipated Discharge Date/Time: 05/27/25 13:30 Discharge Medications: New levetiracetam 1,000 mg tablet 1,000 mg PO BID Qty: 60 2RF Continued nystatin 100,000 unit/gram powder 1 applic topical QID albuterol sulfate 2.5 mg /3 mL (0.083 %) solution for nebulization 2.5 mg inhalation Q4H PRN diphenoxylate-atropine 2.5-0.025 mg tablet 1 tab PO TID PRN potassium chloride 10 mEq tablet extended release 10 meq PO .DAILYWM venlafaxine 100 mg tablet 100 mg PO DAILY levothyroxine 88 mcg tablet 88 mcg PO DAILY hydrochlorothiazide 25 mg tablet 25 mg PO DAILY albuterol sulfate 90 mcg/actuation HFA aerosol inhaler 2 puff INHALATION TID PRN rosuvastatin 10 mg tablet 10 mg PO HS buspirone 15 mg tablet 15 mg PO BID cyanocobalamin (vitamin B-12) 1,000 mcg/mL solution 1,000 mcg IM Q30D epinephrine 0.3 mg/0.3 mL auto-injector 0.3 ml IM Q5-15M PRN Rx Instructions: do not exceed 3 doses per episode ferrous gluconate 324 mg (38 mg iron) tablet 324 mg PO DAILY budesonide-formoterol 80-4.5 mcg/actuation HFA aerosol inhaler 2 puff INHALATION BID pregabalin 75 mg capsule 75 mg PO BID Discharge Orders: Discharge Order (Routine); Ordered 05/27/25 Ordered By: He Stearns Patient Education: Levetiracetam (By mouth) (Keppra, Keppra XR, Spritam, Elepsia XR), Recurrent Seizures in Adults (DC), Generalized Tonic Clonic Seizures (DC) Additional Instructions: 1. Follow-up with primary foster care worker in 5-10 days, optimize BP control to minimize risk of additional strokes 2. No driving 3. Safe living setting 4. Outpatient neurology consultation, consider EEG 5. Return to clinic or emergency department sooner as needed Activity Level: No Restrictions and Activity as Tolerated Discharge Diet: 2 gm Sodium Follow Up Appointments: Padmini Kim PA-C [Primary Care Provider, [facility]] - 06/08/25 9:30 am Referral Note: [facility] for follow up appointment with PCP Forms: [employer] Info Instructions
--- NOTE | 2025-05-27 15:32 | PC.NURSE ---
Nursing Care Hours: [id number] Pt this shift calm and cooperative, alert and oriented. Chronic pain to low back treated with PRN acetaminophen. MRI with contrast completed. Neurology exam via [facility] completed, and results discussed. IV removed for discharge. Instructions went over with pt and pt adult daughter. VSS. Pt wheeled out to vehicle in stable condition.
--- NOTE | 2025-05-27 21:32 | CRLHL7_ITS ---
For Patients: As a result of the Century Cures Act, medical imaging exams and procedure reports are released immediately into your electronic medical record. You may view this report before your referring provider. If you have questions, please contact your health care provider. Indication: New seizure. Technique: Coronal T2 and FLAIR sequences were obtained through the brain, along with sagittal T1 MPrage sequences obtained pre and postcontrast with coronal and axial reformats, per the seizure protocol. A total of 15ml Dotarem contrast was administered for this exam. Comparison: MRI brain 05/26/2025 Findings: Redemonstration of focal and confluent regions of T2/FLAIR hyperintensity throughout the bilateral cerebral white matter and [place], typical of chronic microangiopathy. Chronic lacunar infarcts are redemonstrated at the right cerebellar hemisphere. No pathologic postcontrast enhancement is seen given patient motion artifact. Major intracranial vasculature demonstrates preserved T2 hypointense flow voids and intraluminal contrast opacification. Bautista-white matter differentiation appears preserved. Impression: 1. No suspicious intracranial enhancement. 2. Redemonstration of moderate chronic microangiopathy changes and chronic right cerebellar lacunar infarcts. Dictated by Lucita Lara MD @ 05/27/2025 10:09:38 AM (Electronically Signed)
== END 2025-05-27 13:55 | disposition home or self-care (01) | DRG 101 ==
LOC: ED 20:29 → MEDSURG 21:10
PROVIDERS: Admitting Provider Family Medicine; Emergency Provider Student in an Organized Health Care Education/Training Program; PCP Physician Assistant Medical; Visit Provider Family Medicine
DX: G40.909 Epilepsy, unspecified, not intractable, without status epilepticus (principal); F05 Delirium due to known physiological condition; E87.6 Hypokalemia; I67.9 Cerebrovascular disease, unspecified; R74.02 Elevation of levels of lactic acid dehydrogenase [LDH]; F41.9 Anxiety disorder, unspecified; J45.40 Moderate persistent asthma, uncomplicated; I10 Essential (primary) hypertension; R25.1 Tremor, unspecified; R73.09 Other abnormal glucose; R82.90 Unspecified abnormal findings in urine; M79.7 Fibromyalgia; K58.0 Irritable bowel syndrome with diarrhea; E53.8 Deficiency of other specified B group vitamins; M54.12 Radiculopathy, cervical region; E78.5 Hyperlipidemia, unspecified; E03.9 Hypothyroidism, unspecified
CPT/HCPCS: 36415; 70450; 70551; 70552; 71045; 80048; 80069; 80306; 81001; 82077; 82330; 82803; 82947; 82962; 83036; 83605; 83735; 84443; 84484; 85025; 85379; 86140; 87086; 87631; 93005; 97161; 99284; 99285; A9270; A9575; G0378; J1953; J7030; J7120